=== PATIENT | male | born 1955 | race Caucasian/White ===

== ENCOUNTER 2021-02-27 16:14 | Inpatient (IN) ==
[2021-02-27 18:37] LABS: Basophils # (auto) 0.02 K/uL (0-0.2); Basophils % (auto) 0.3 %; Eosinophils # (auto) 0.15 K/uL (0-0.5); Eosinophils % (auto) 2.1 %; Hematocrit (blood only) 26.7 % (42-52); Hemoglobin 8.4 g/dL (14.0-18.0); Immature Granulocytes # (auto) 0.01 K/uL (0.00-0.02); Immature Granulocytes % (auto) 0.1 %; Lymphocytes # (auto) 1.72 K/uL (1.2-3.4); Lymphocytes % (auto) 24.2 %; Mean Corpuscular Hgb Conc 31.5 g/dL (32-36); Mean Platelet Volume 9.5 fL (7.4-10.4); Monocytes # (auto) 0.87 K/uL (0.11-0.59); Monocytes % (auto) 12.3 %; Neutrophils # (auto) 4.33 K/uL (1.4-6.5); Platelet Count 183 K/uL (130-400); RDW Coefficient of Variation 15.2 % (11.5-14.5); RDW Standard Deviation 48.7 fL (36.4-46.3)
[2021-02-27 18:54] LABS: Alanine Aminotransferase 28 U/L (12-78); Albumin Level 3.8 gm/dl (3.4-5.0); Aspartate Aminotransferase 12 U/L (15-37); BUN Creatinine Ratio 18.8 (10-20); Blood Urea Nitrogen 52 mg/dl (7-18); Calcium 8.7 mg/dl (8.5-10.1); Carbon Dioxide 28 mmol/L (21-32); Chloride 107 mmol/L (98-107); Est GFR (Non-African American) 23.3; Glucose 166 mg/dl (70-99); Potassium 4.4 mmol/L (3.5-5.1); Sodium 139 mmol/L (136-145)
[2021-02-27 18:57] LABS: Albumin Globulin Ratio 1.1 (0.9-2); Alkaline Phosphatase 61 U/L (45-117); Bilirubin,Total 0.2 mg/dl (0.2-1); Globulin 3.4 gm/dl (2.5-4.0); Total Protein 7.2 gm/dl (6.4-8.2)
[2021-02-27 18:58] LABS: Partial Thromboplastin Ratio 2.7; Prothrombin Time > 90.0 Seconds (9.0-12.0)
[2021-02-27 19:04] LABS: INR > 10.7 (0.9-1.1); Partial Thromboplastin Time 71.9 Seconds (21.0-31.0)
[2021-02-27] MEDS ORDERED: PHYTONADIONE 5 MG in SODIUM CHLORIDE 0.9% 50 ML IV ONE ×2 (19:09→21:28)
--- NOTE | 2021-02-27 19:45 | Emergency Department Note ---
Impression & Plan Supratherapeutic INR ED Provider Note INFORMANT: Patient ED PROVIDER(S): Yovani Jain MD CHIEF COMPLAINT: Abnormal labs PLAN: Disposition: Admitted Condition: Good Outpatient prescription management: none Referral: None MEDICAL DECISION MAKING: Patient presented because of the high INR. His blood work was rechecked. He is found to be moderately anemic as well as having a supratherapeutic INR. He was given a dose of IV vitamin K. Rectal examination was performed even though the patient did not have any significant history of GI bleeding by his own account. He was very heme positive although there was no gross blood. I suspect this was the reason he is very anemic. He is not at the threshold for transfusion at this point time although he needs to be admitted because of his supratherapeutic INR and obvious GI bleed. Consultation was made with Dr. Underwood of the [facility] hospitalist service. Patient was evaluated in the ER admitted for further management. Triage Nursing notes reviewed and agree them. Vital Signs: reviewed and remarkable for no significant abnormalities Differential diagnosis: Coagulopathy, infection, dehydration, metabolic abnormality, electrolyte disturbance, anemia, as well as other pathologies. Diagnostics interpreted by me: ECG: none Cardiac Monitoring: Cardiac monitoring ordered by me: The patient was placed on continuous cardiac monitoring and observed. It revealed a normal sinus rhythm at 72 beats per minute without ectopy or evidence of dysrhythmia. Imaging studies: [facility] HPI: The patient is a 65 year old male who presents to the Emergency Room with complaints of abnormal labs. This started today and is from his INR being 8. The patient is on Coumadin for A. fib. He had an INR check done at the [facility] and his value was noted to be 8. He was sent to the ER for further evaluation. The patient also notes the following associated symptoms, none. The patient has been given no new medication for relieving factors. Current pain is rated as 0/10. Pt denies LOC, headache, fevers, chills, diaphoresis, visual changes, neck pain, chest pain, breathing difficulties, nausea, vomiting, abdominal pain, back pain, melena, hematochezia, urinary symptoms, numbness, weakness, lymphadenopathy, rash, active bleeding or bruising, or other complaints. ROS: See above HPI for pertinent positives & negatives. A total of 10 systems reviewed and were otherwise negative. PAST MEDICAL HISTORY:See Below , A. fib, anticoagulated PAST SURGICAL HISTORY:See Below, FAMILY HISTORY:See Below SOCIAL HISTORY:See Below, incarcerated HOME MEDICATIONS:See Below ALLERGIES:See Below VITALS:See Below PHYSICAL EXAMINATION: GENERAL: Awake, alert, well-appearing, in no distress HENT: Normocephalic, atraumatic. Oropharynx unremarkable. EYES: Mildly pale conjunctiva. Sclera non-icteric. NECK: Inspection normal. Non-tender. Supple. No nuchal rigidity. FROM. No masses. RESPIRATORY: Clear to auscultation. No wheezes. No rales. Normal respiratory effort. CARDIAC: Normal rate. Normal rhythm. No murmurs. No rubs. Extremities warm and well perfused. Pulses equal. No JVD. GI: Soft, non-distended. No tenderness to palpation. No rebound or guarding. No masses. RECTAL: No gross blood. Strongly heme positive. MUSCULOSKELETAL: Atraumatic. Chest examination reveals no tenderness. The back is symmetrical on inspection without obvious abnormality. There is no CVA tenderness to palpation. No joint edema. LOWER EXTREMITIES: Calves are equal size bilaterally and non-tender. No edema. No discoloration. NEURO: Normal sensorium. No sensory or motor deficits noted. SKIN: No rash or jaundice noted. Yovani Jain MD Past Med/Surg History Medical History (Updated 02/27/21 @ 19:43 by Yovani Jain MD) Cellulitis Diabetes Diabetes mellitus type 2 in obese Endocarditis Gangrene HTN (hypertension) Hyperlipidemia Paroxysmal A-fib Sepsis Umbilical hernia Surgical History History of Diann's gangrene With debridement x2 in 2019 at [facility] Family History Other Family history non-contributory Social History Smoking Status: Former smoker Preferred Language: Sinhala Communication Ability: Effective Current Living Situation: Other [facility] Sit[facility] Comment: [facility] current occupation: Incarcerated Feels Safe at Home: Yes Allergies Allergies Allergy/AdvReac Type Severity Reaction Status Date / Time sodium chloride Allergy Unknown Verified 02/27/21 18:34 [From [place] Nasal] Home Meds Home Medications Medication Instructions Recorded Confirmed hydrochlorothiazide 25 mg PO DAILY 08/13/20 02/27/21 insulin NPH and regular human 40 unit SUBCUT QPM 08/13/20 02/27/21 [Novolin 70/30 U-100 Insulin] insulin NPH and regular human 45 unit SUBCUT QAM 08/13/20 02/27/21 [Novolin 70/30 U-100 Insulin] rosuvastatin 40 mg PO DAILY 08/13/20 02/27/21 amiodarone 200 mg PO BID 02/27/21 02/27/21 aspirin [Aspirin Low Dose] 81 mg PO DAILY 02/27/21 02/27/21 losartan 25 mg PO DAILY 02/27/21 02/27/21 metoprolol tartrate 25 mg PO BID 02/27/21 02/27/21 warfarin 6 mg PO DAILY 02/27/21 02/27/21 Results & Data (ED) Vital Signs Vital Signs - 24 hr 02/27/21 16:29 02/27/21 19:27 02/27/21 19:52 Temperature 36.9 C 36.8 C Temperature Source Temporal Artery Scan Oral Pulse Rate 75 Pulse Rate [Finger] 63 Respiratory Rate 16 16 Respiratory Effort / Characteristics Non-Labored Respiratory Depth Normal Normal Respiratory Pattern Regular Blood Pressure 133/69 Blood Pressure [Right Arm] 134/89 Blood Pressure Mean 90 Blood Pressure Mean [Right Arm] 104 Blood Pressure Position Sitting Pulse Oximetry 96 100 Oxygen Delivery Method Room Air Room Air Room Air Sepsis Recent Fever Within 48 Hours No Sepsis New/Unexplained Change in Mental Status No Sepsis Action Taken by Nursing No Action Required 02/27/21 20:12 02/27/21 20:27 Temperature Temperature Source Pulse Rate Pulse Rate [Finger] 70 72 Respiratory Rate 20 20 Respiratory Effort / Characteristics Non-Labored Spontaneous Non-Labored Spontaneous Respiratory Depth Normal Normal Respiratory Pattern Regular Regular Blood Pressure Blood Pressure [Right Arm] 140/95 172/91 H Blood Pressure Mean Blood Pressure Mean [Right Arm] 110 118 Blood Pressure Position Pulse Oximetry 98 99 Oxygen Delivery Method Room Air Room Air Sepsis Recent Fever Within 48 Hours Sepsis New/Unexplained Change in Mental Status Sepsis Action Taken by Nursing Laboratory Data Result diagrams: 02/27/21 18:20 02/27/21 18:20 Lab Results 02/27/21 02/27/21 02/27/21 Range/Units 18:20 18:20 18:20 WBC 7.10 (4.8-10.8) K/uL RBC 3.00 L (4.7-6.1) M/uL Hgb 8.4 L (14.0-18.0) g/dL Hct 26.7 L (42-52) % MCV 89.0 (80-100) fL MCH 28.0 (25-34) pg MCHC 31.5 L (32-36) g/dL RDW Std Deviation 48.7 H (36.4-46.3) fL RDW Coeff of Sharad 15.2 H (11.5-14.5) % Plt Count 183 (130-400) K/uL MPV 9.5 (7.4-10.4) fL Immature Gran % (Auto) 0.1 % Neut % (Auto) 61.0 % Lymph % (Auto) 24.2 % [place] % (Auto) 12.3 % Eos % (Auto) 2.1 % Baso % (Auto) 0.3 % Neut # (Auto) 4.33 (1.4-6.5) K/uL Lymph # (Auto) 1.72 (1.2-3.4) K/uL [place] # (Auto) 0.87 H (0.11-0.59) K/uL Eos # (Auto) 0.15 (0-0.5) K/uL Baso # (Auto) 0.02 (0-0.2) K/uL Immature Gran # (Auto) 0.01 (0.00-0.02) K/uL PT > 90.0 H (9.0-12.0) Seconds INR > 10.7 H* (0.9-1.1) APTT 71.9 H* (21.0-31.0) Seconds PTT Ratio 2.7 Sodium 139 (136-145) mmol/L Potassium 4.4 (3.5-5.1) mmol/L Chloride 107 (98-107) mmol/L Carbon Dioxide 28 (21-32) mmol/L Anion Gap 4.0 (3-11) BUN 52 H (7-18) mg/dl Creatinine 2.77 H (0.6-1.4) mg/dl Est Cr Clr Drug Dosing Not Reportable Est GFR ( Amer) 27.0 Est GFR (Non-Af Amer) 23.3 BUN/Creatinine Ratio 18.8 (10-20) Glucose 166 H (70-99) mg/dl Calcium 8.7 (8.5-10.1) mg/dl Total Bilirubin 0.2 (0.2-1) mg/dl AST 12 L (15-37) U/L ALT 28 (12-78) U/L Alkaline Phosphatase 61 (45-117) U/L Total Protein 7.2 (6.4-8.2) gm/dl Albumin 3.8 (3.4-5.0) gm/dl Globulin 3.4 (2.5-4.0) gm/dl Albumin/Globulin Ratio 1.1 (0.9-2) Administered Medications Discontinued Medications Phytonadione 5 mg/ Sodium (Chloride) 50.5 mls @ 101 mls/hr IV ONE ONE Stop: 02/27/21 19:38 Last Infusion: 02/27/21 20:27 Dose: 0 mls/hr Documented by: [id number] Admin: 02/27/21 19:52 Dose: 101 mls/hr Documented by: [id number] Discharge Plan Visit Data Chief Complaint: Illness Stated Complaint: BLOOD TOO THIN ED Provider: Yovani Jain Discharge Problem: Supratherapeutic INR Forms Stand Alone Forms: My [facility] Prescriptions Prescriptions: No Action Novolin 70/30 U-100 Insulin 100 unit/mL (70-30) Suspension 45 unit SUBCUT QAM RF: 0 hydrochlorothiazide 25 mg Tablet 25 mg PO DAILY RF: 0 rosuvastatin 40 mg Tablet 40 mg PO DAILY RF: 0 Novolin 70/30 U-100 Insulin 100 unit/mL (70-30) Suspension 40 unit SUBCUT QPM RF: 0 amiodarone 200 mg Tablet 200 mg PO BID RF: 0 losartan 25 mg Tablet 25 mg PO DAILY RF: 0 metoprolol tartrate 25 mg Tablet 25 mg PO BID RF: 0 aspirin [Aspirin Low Dose] 81 mg Tablet,Delayed Release (Dr/Ec) 81 mg PO DAILY RF: 0 warfarin 6 mg Tablet 6 mg PO DAILY RF: 0
[2021-02-27 21:51] LABS: Base Excess VBG 0.7 mEq/L; HCO3 VBG 26 mmol/L; Oxygen Saturation VBG < 60.0 %; PCO2 VBG 49 mmHg (38-50); PO2 VBG 32 mmHg; pH VBG 7.35 (7.36-7.41)
--- NOTE | 2021-02-27 21:52 | History & Physical Report ---
Date of Service February 27, 2021 Assessment & Plan (1) Supratherapeutic INR: Patient with supratherapeutic INR at >10 with [id number] bleeding. - Given an additional 5mg Vitamin K for a total of 10mg IV- re-dose as needed - If patient is actively bleeding will give Kcentra - Hold Coumadin and Amiodarone- This is maybe causing his elevated levels - Recheck PT/PTT/INR in 6 hours - CBC q3-4 hours (2) GI bleed: Unspecified- no gross bleeding and not in acute distress or evidence of hypoperfusion/shock - Type and screened for 2 units PRBC - CT abdomen and pelvis noncontrast- evaluate for occult bleeding - Transfuse for acute bleeding, symptomatic, or evidence of shock - BUN is at baseline (52) from 2019 (3) Anemia: Currently HGB 8 normocytic - This does not appear to be acute pathology secondary to patient being asymptomatic, no active bleeding noted, and very stable hemodynamic profile (although on BB therapy) - Will hold BB and antihypertensives at this time - Transfuse as above - CT head abdomen and pelvis (4) Diabetes mellitus type 2 in obese: On insulin therapy - Transition to Lantus and Sliding scale insulin - NPO tonight so Lantus at 20- re-adjust when diet is added (5) HTN (hypertension): Continue to hold hypertensive agents until bleeding source is identified and INR stabilized - Will treat if > 180 - Patient with evidence of failure with edema and hepatic congestion- - Diurese when able as well as ECHO (6) Obesity: Morbidly obese - No acute needs (7) Hyperlipidemia: Lipids in morning continue statin (8) Hepatic cyst: Incidental on abdominal CT scan- evaluate with liver ultrasound in the morning (9) Paroxysmal A-fib: Patient rate controlled. 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 Patient does not know what Coumadin or Warfarin was, "what's that? I don't know". Patient had his INR checked at the long term today and was noted to be elevated and was re-checked ~8. It was re-checked in the EMD with INR of 10.7, PT>90, APTT 71.9. The patient is pale and his Hgb is 8.4, he is not a great historian and gets confused with questioning. He denies any change in his abdominal girth, nausea, vomiting, blood in the toilet or stools. Does report that stools were "dark black but then they stopped being like that", approximately a "week or so ago". Patient had a heme positive occult blood test in the EMD. In the ER the patient was type and screened for 2 units PRBC and received 5mg Vitamin K IV. Hospitalist team was notified for admission. Allergies Allergy/AdvReac Type Severity Reaction Status Date / Time sodium chloride Allergy Unknown Verified 02/27/21 18:34 [From [place] Nasal] Home Medications Medication Instructions Recorded Confirmed Type hydrochlorothiazide 25 mg PO DAILY 08/13/20 02/27/21 History insulin NPH and regular human 40 unit SUBCUT QPM 08/13/20 02/27/21 History [Novolin 70/30 U-100 Insulin] insulin NPH and regular human 45 unit SUBCUT QAM 08/13/20 02/27/21 History [Novolin 70/30 U-100 Insulin] rosuvastatin 40 mg PO DAILY 08/13/20 02/27/21 History amiodarone 200 mg PO BID 02/27/21 02/27/21 History aspirin [Aspirin Low Dose] 81 mg PO DAILY 02/27/21 02/27/21 History losartan 25 mg PO DAILY 02/27/21 02/27/21 History metoprolol tartrate 25 mg PO BID 02/27/21 02/27/21 History warfarin 6 mg PO DAILY 02/27/21 02/27/21 History Past Med/Surg History Medical History (Updated 02/27/21 @ 23:03 by OLIVERIO Corley) Cellulitis Diabetes Diabetes mellitus type 2 in obese Endocarditis Gangrene HTN (hypertension) Hyperlipidemia Paroxysmal A-fib Sepsis Umbilical hernia Surgical History History of Diann's gangrene With debridement x2 in 2019 at [facility] Family History Other Family history non-contributory Social History Smoking Status: Unknown if ever smoked Hx Alcohol Use: No Hx Substance Use: No Preferred Language: Romanian Communication Ability: Effective 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 Beliefs That Will Affect Care: None Current Living Situation: Other Current Living Situation Comment: [facility] current occupation: Incarcerated Other Information That Helps Us Care for You: No Feels Safe at Home: Yes Assistive Devices: None Review of Systems Review of Systems: REVIEW OF SYSTEMS: Constitutional: No fever, sweats or chills Eyes: No diplopia, no worsening or blurred vision ENT: normal hearing, no trouble swallowing Respiratory: No cough, sputum, dyspnea at rest or on exertion Cardiovascular: No chest pain, tightness or palpitations Abdomen: No pain, nausea, vomiting, diarrhea or constipation Musculoskeletal: No joint pain, calf pain, swelling Neurologic: No weakness, numbness/tingling, or balance problems Psychiatric: No anxiety or depression Skin: No rash or itch Physical Exam Physical Exam: PHYSICAL EXAM: General: awake, alert, no apparent distress Head: Normocephalic, atraumatic ENT: PERRLA, EOMI, no pharyngeal exudate, mucous membranes moist, conjunctiva pale, no jaundice Neuro: AAO x 3, speech clear and mostly appropriate, strength intact bilaterally 5/5, sensation intact and equal all extremities and dermatomes, no pronator drift Chest: equal rise and fall of the chest, no accessory muscle use, no heaves or thrills, Clear to auscultation, on room air, Cardiac: Regular rate and rhythm, telemetry reviewed- NSR, skin warm dry, cap refill <3 seconds, peripheral pulses +2 no JVD, no murmur, (+) 2 edema to lower extremities GI: NABS x 4 quadrants, soft, nontender to palpation, no rebound, guarding or tenderness, obese rotund abdomen : Spontaneously voiding, no pain, no CVA tenderness, Extremities: Normal inspection, no peripheral edema or erythema, calfs nontender to palpation Psych: Normal mood and affect Skin: no rash or erythema, scar to left inner thigh Results & Data Results & Data ([facility]) Vital Signs (Past 12 Hours) Vital Signs Temp Pulse Pulse Resp BP BP Pulse Ox 02/27/21 20:27 72 20 172/91 H 99 02/27/21 20:12 70 20 140/95 98 02/27/21 19:52 36.8 C 63 16 134/89 100 02/27/21 16:29 36.9 C 75 16 133/69 96 Laboratory Results Abnormal lab results 02/27/21 02/27/21 02/27/21 Range/Units 18:20 18:20 18:20 RBC 3.00 L (4.7-6.1) M/uL Hgb 8.4 L (14.0-18.0) g/dL Hct 26.7 L (42-52) % MCHC 31.5 L (32-36) g/dL RDW Std Deviation 48.7 H (36.4-46.3) fL RDW Coeff of Sharad 15.2 H (11.5-14.5) % [place] # (Auto) 0.87 H (0.11-0.59) K/uL PT > 90.0 H (9.0-12.0) Seconds INR > 10.7 H* (0.9-1.1) APTT 71.9 H* (21.0-31.0) Seconds VBG pH (7.36-7.41) BUN 52 H (7-18) mg/dl Creatinine 2.77 H (0.6-1.4) mg/dl Glucose 166 H (70-99) mg/dl AST 12 L (15-37) U/L 02/27/21 Range/Units 21:40 RBC (4.7-6.1) M/uL Hgb (14.0-18.0) g/dL Hct (42-52) % MCHC (32-36) g/dL RDW Std Deviation (36.4-46.3) fL RDW Coeff of Sharad (11.5-14.5) % [place] # (Auto) (0.11-0.59) K/uL PT (9.0-12.0) Seconds INR (0.9-1.1) APTT (21.0-31.0) Seconds VBG pH 7.35 L (7.36-7.41) BUN (7-18) mg/dl Creatinine (0.6-1.4) mg/dl Glucose (70-99) mg/dl AST (15-37) U/L Diagnostic Findings CT head and abdomen and pelvis are pending Medications Administered Discontinued Medications Phytonadione 5 mg/ Sodium (Chloride) 50.5 mls @ 101 mls/hr IV ONE ONE Stop: 02/27/21 19:38 Last Infusion: 02/27/21 20:27 Dose: 0 mls/hr Documented by: [id number] Admin: 02/27/21 19:52 Dose: 101 mls/hr Documented by: [id number] ECG Additional Comments: Pending Supervising Physician Co-Signing Physician Notes Patient seen and examined, chart reviewed, case discussed with OLIVERIO Mack and I agree with his assessment and plan as documented above. Briefly, patient is a 65yo incarcerated male with history of PAF on Coumadin and Amiodarone presenting with supratherapeutic INR > 10, anemia. On exam he is afebrile, HD stable, NAD AA&O, answers most questions appropriately Skin - scattered bruising on abdominal wall. No appreciable hematoma HEENT - NC/AT, PERRL, MMM, Neck supple Heart - +S1/S2, regular, no m/r/g Lungs - CTA Abd - Obese, soft, NT/ND Ext - +Edema 2+ to knees Skin - +bruising on abdominal wall, small petechiae present on bilateral ankles Labs and images reviewed. INR > 10.7, Hgb=8.4, Hct=26.7, normochromic/normocytic, Aiz=851 CT Head with involutional and chronic small vessel ischemic changes. No ICH CT Abdomen and pelvis with hepatic cysts. 2cm low-density right hepatic lobe, ?cyst vs solid mass. Assessment/Plan: 65yo C male with history of AF on Coumadin anticoagulation presenting with supratherapeutic INR >10.7, anemia with Heme + stools per ER exam. Patient afebrile, HD stable, no acute distress. -Vitamin K 5mg IV x 2 doses administered -Hold Coumadin -Monitor INR, CBC -GI consultation appreciated -AFP and RUQUS in AM to further workup liver cyst vs mass -Remainder of plan as above PG Care Time/CCT Total # of Minutes Spent Total Time Spent with Patient: Total time spent is greater than 50% in coordination of care (as documented) at patient's floor/unit and/or counseling patient: Coding Level of Care Code 75133 Initial Inpt Care Lvl 3 Diagnoses Supratherapeutic INR R79.1 GI bleed K92.2 GI bleed type/associated pathology: unspecified gastrointestinal hemorrhage type Anemia D64.89 Anemia type: other cause Other causes of anemia: other cause, not classified Diabetes mellitus type 2 in obese E11.69; E66.9 HTN (hypertension) I10 Hypertension type: essential hypertension Obesity E66.01; Z68.41 Body mass index: BMI 40.0-44.9 Obesity classification: adult class 3 (BMI >= 40) Obesity type: unspecified obesity type Serious obesity comorbidity presence: without serious comorbidity Hyperlipidemia E78.5 Hyperlipidemia type: unspecified Hepatic cyst K76.89 Paroxysmal A-fib I48.0 (1) GI bleed GI bleed type/associated pathology: unspecified gastrointestinal hemorrhage type Qualified Code(s): K92.2 - Gastrointestinal hemorrhage, unspecified (2) Anemia Anemia type: other cause Other causes of anemia: other cause, not classified Qualified Code(s): D64.89 - Other specified anemias (3) Hyperlipidemia Hyperlipidemia type: unspecified Qualified Code(s): E78.5 - Hyperlipidemia, unspecified (4) HTN (hypertension) Hypertension type: essential hypertension Qualified Code(s): I10 - Essential (primary) hypertension (5) Obesity Body mass index: BMI 40.0-44.9 Obesity classification: adult class 3 (BMI >= 40) Obesity type: unspecified obesity type Serious obesity comorbidity presence: without serious comorbidity Qualified Code(s): E66.01 - Morbid (severe) obesity due to excess calories; Z68.41 - Body mass index [BMI]40.0- 44.9, adult
[2021-02-27 22:25] LABS: Influenza A virus by PCR Negative (Neg); Influenza B virus by PCR Negative (Neg); RSV by PCR Negative (Neg); SARS CoV2 RNA(COVID-19) InHosp NEGATIVE (Negative)
[2021-02-27 22:46] LABS: Amphetamines+Metham, Urine Neg (Neg); Barbiturates, Urine Neg (Neg); Benzodiazepine, Urine Neg (Neg); Cocaine, Urine Neg (Neg); MDMA (Ecstacy), Urine Neg (Neg); Methadone, Urine Neg (Neg); Opiate, Urine Neg (Neg); Phencyclidine, Urine Neg (Neg)
[2021-02-28] MEDS ORDERED: DEXTROSE 50% 50 ML SYRINGE IV PRN (00:37)
[2021-02-28] MEDS ORDERED: ONDANSETRON INJ 2 MG/ML 2 ML VIAL IV PRN (00:37)
[2021-02-28] MEDS ORDERED: GLUCOSE 10 TABS/TUBE PO PRN (00:37)
[2021-02-28] MEDS ORDERED: CARBOHYDRATES FOR HYPOGLYCEMIA PO PRN (00:37)
[2021-02-28] MEDS ORDERED: GLUCAGON FOR INJ 1 MG VIAL SQ PRN (00:37)
[2021-02-28] MEDS ORDERED: GLUCOSE 40% GEL 15 GM TUBE PO PRN (00:37)
[2021-02-28] MEDS ORDERED: ACETAMINOPHEN 325 MG TAB PO PRN (00:37)
[2021-02-28] MEDS: INSULIN ASPART 100 UNITS/ML 3 ML PEN SC SCH ×5 (01:32→20:32)
[2021-02-28 03:31] LABS: Basophils # (auto) 0.02 K/uL (0-0.2); Basophils % (auto) 0.3 %; Eosinophils # (auto) 0.21 K/uL (0-0.5); Hematocrit (blood only) 23.9 % (42-52); Hemoglobin 7.6 g/dL (14.0-18.0); Immature Granulocytes # (auto) 0.01 K/uL (0.00-0.02); Immature Granulocytes % (auto) 0.1 %; Lymphocytes # (auto) 2.26 K/uL (1.2-3.4); Lymphocytes % (auto) 32.6 %; Mean Corpuscular Hemoglobin 28.1 pg (25-34); Mean Corpuscular Hgb Conc 31.8 g/dL (32-36); Mean Corpuscular Volume 88.5 fL (80-100); Mean Platelet Volume 9.2 fL (7.4-10.4); Monocytes # (auto) 0.81 K/uL (0.11-0.59); Monocytes % (auto) 11.7 %; Neutrophils # (auto) 3.62 K/uL (1.4-6.5); Neutrophils % (auto) 52.3 %; Platelet Count 158 K/uL (130-400); RDW Coefficient of Variation 15.2 % (11.5-14.5); RDW Standard Deviation 49.1 fL (36.4-46.3); White Blood Count 6.93 K/uL (4.8-10.8)
[2021-02-28 03:42] LABS: Partial Thromboplastin Ratio 1.4; Partial Thromboplastin Time 35.6 Seconds (21.0-31.0)
[2021-02-28 03:51] LABS: BUN Creatinine Ratio 19.2 (10-20); Blood Urea Nitrogen 49 mg/dl (7-18); Calcium 7.8 mg/dl (8.5-10.1); Carbon Dioxide 28 mmol/L (21-32); Chloride 110 mmol/L (98-107); Est GFR (African American) 30.1; Glucose 121 mg/dl (70-99); Magnesium 2.1 mg/dl (1.8-2.4); Sodium 143 mmol/L (136-145)
[2021-02-28 03:53] LABS: RBC Morphology Unremarkable
[2021-02-28 03:54] LABS: Chol HDL Ratio 2; Cholesterol 102 mg/dl (0-200); HDL Cholesterol 47 mg/dl; LDL Cholesterol Calculated 23 mg/dl; Triglycerides 159 mg/dl (0-150); VLDL Cholesterol 32 mg/dl
--- NOTE | 2021-02-28 06:30 | CT Scan Report ---
CT head/brain wo con CLINICAL HISTORY: 65 years-old Male with INR > 10, confusion. Acutely altered mental status TECHNIQUE: Multiple axial CT images of the head were obtained without contrast. A dose lowering tech nique was utilized adhering to the principles of ALARA. CT DOSE: 537.48 mGy.cm COMPARISON: None. FINDINGS: No acute intracranial hemorrhage, midline shift, intracranial mass, hydrocephalus, territorial ischem ia or abnormal extra-axial collection. Involutional changes. Cerebral vascular calcifications. The calvarium is intact. The paranasal sinuses, mastoid air cells, and middle ear cavities are clear . IMPRESSION: No acute intracranial abnormality. ACT 112: Negative or not required by law. The above report was generated using voice recognition software. It may contain grammatical, syntax o r spelling errors. Electronically signed by: Lucas Cooper M.D. 02/28/2021 6:29 AM
[2021-02-28 07:37] LABS: INR 2.5 (0.9-1.1); Prothrombin Time 23.7 Seconds (9.0-12.0)
--- NOTE | 2021-02-28 07:58 | Hospitalist Progress Note ---
Date of Service February 28, 2021 Assessment & Plan (1) Supratherapeutic INR: Patient with supratherapeutic INR at >10 with [id number] bleeding. - Given vitamin k for a total of 10mg IV - Hold Coumadin and Amiodarone- This is maybe causing his elevated levels inr 2.5 but no further decrease in hgb (2) GI bleed: Unspecified- no gross bleeding and not in acute distress or evidence of hypoperfusion/shock - Type and screened for 2 units PRBC - CT abdomen and pelvis - Transfuse for acute bleeding, symptomatic, or evidence of shock (3) Anemia: Currently HGB 7.6, transfused now 8.9 - - Will hold BB and antihypertensives at this time, have metoprolol available for rate control of afib - CT head negative, abdomen and pelvis and mri showing some mass in liver some with cyst appearance some wihthout not given contrast due to renal function although radiology feels maybe should have, this likely not with immediate impact on supratherapeutic INR will need further work up (4) Diabetes mellitus type 2 in obese: On insulin therapy - Transition to Lantus and Sliding scale insulin (5) HTN (hypertension): Continue to hold hypertensive agents until bleeding source is identified and INR stabilized - Will treat if > 180 - (6) Obesity: Morbidly obese - No acute needs (7) Hyperlipidemia: Lipids tc 102 triglycerides 159 (8) Hepatic cyst: Incidental on abdominal CT scan- evaluate with liver ultrasound in the morning (9) Paroxysmal A-fib: Patient rate controlled. On Coumadin anticoagulation with supratherapeutic INR as above -Hold Coumadin -Monitor INR -Hold metoprolol -Contine to monitor (10) CKD stage 4 due to type 2 diabetes mellitus: Admission and Anticipated Discharge Date Admission Date: February 27, 2021 Subjective Patient was seen in the emergency department he is having no discomfort. He had no melena or dark bowel movements. He has no focus abdominal pain. Patient's INR is down to 2.5 but his hemoglobin has been stable. Review of Systems Review of Systems: Mild distress and fatigue no headache, blurry or double vision no speech or swallowing issues no chest pain, pressure or palpitations no shortness of breath, cough or wheezes no abdominal pain, nausea or vomiting, diarrhea or constipation no dysuria, hematuria or frequency no focal joint pain or swelling no back pain, CVA tenderness or radicular pain no bruising, bleeding or rashes no focal signs of weakness or numbness or altered sensation no complaints of anxiety or depression.. Physical Exam Physical Exam: The patient appeared well nourished and normally developed. he is morbidly obese with bmi 40 Vital signs as documented. Head exam is normocephalic atraumatic no scleral icterus Neck is without JVD, thyromegaly, or carotid bruits. Lungs are clear to auscultation, no focal loss of breath sounds Cardiac exam, Rhythm is regular.. No murmurs, rubs or gallops. Abdominal exam reveals normal bowel sounds, soft non tender, no masses Extremities are nonedematous and both pedal pulses are present Neurologic exam is alert and oriented, no focal loss of strength or sensation Skin is without bruises or rashes Psychologically is without concerns for anxiety or depression Results & Data Results & Data ([facility]) Vital Signs (Past 12 Hours) Vital Signs Temp Pulse Pulse Resp BP BP Pulse Ox 02/28/21 04:00 90 16 135/68 96 02/28/21 02:00 59 L 16 134/70 97 02/28/21 01:06 58 L 14 155/73 H 98 02/28/21 00:37 77 16 118/64 99 02/27/21 23:02 67 20 141/69 H 98 02/27/21 22:01 99 02/27/21 22:00 140/72 96 02/27/21 21:58 100 02/27/21 21:40 70 20 98 02/27/21 21:31 73 18 95 02/27/21 21:30 66 19 129/68 97 02/27/21 21:20 69 19 99 02/27/21 21:10 78 17 02/27/21 21:01 68 17 100 02/27/21 21:00 69 16 162/75 H 100 02/27/21 20:50 66 19 100 02/27/21 20:40 63 16 100 02/27/21 20:32 63 16 96 02/27/21 20:31 64 20 172/91 H 99 02/27/21 20:30 67 14 180/102 H 100 02/27/21 20:27 72 20 172/91 H 99 02/27/21 20:20 69 22 02/27/21 20:15 71 18 140/95 97 02/27/21 20:14 70 18 167/84 H 100 02/27/21 20:12 70 20 140/95 98 02/27/21 20:10 65 16 99 02/27/21 20:01 64 19 100 02/27/21 20:00 67 16 130/86 100 02/27/21 19:57 64 16 134/89 100 02/27/21 19:52 98.2 F 63 16 134/89 100 02/27/21 19:50 62 17 99 PG Care Time/CCT Total # of Minutes Spent Total Time Spent with Patient: Total time spent is greater than 50% in coordination of care (as documented) at patient's floor/unit and/or counseling patient: Coding Level of Care Code 05053 Subseq Hosp Care Lvl 3 Diagnoses Supratherapeutic INR R79.1 GI bleed K92.2 GI bleed type/associated pathology: unspecified gastrointestinal hemorrhage type Anemia D64.89 Anemia type: other cause Other causes of anemia: other cause, not classified Diabetes mellitus type 2 in obese E11.69; E66.9 HTN (hypertension) I10 Hypertension type: essential hypertension Obesity E66.01; Z68.41 Body mass index: BMI 40.0-44.9 Obesity classification: adult class 3 (BMI >= 40) Obesity type: unspecified obesity type Serious obesity comorbidity presence: without serious comorbidity Hyperlipidemia E78.5 Hyperlipidemia type: unspecified Hepatic cyst K76.89 Paroxysmal A-fib I48.0 CKD stage 4 due to type 2 diabetes mellitus E11.22; N18.4 (1) GI bleed GI bleed type/associated pathology: unspecified gastrointestinal hemorrhage type Qualified Code(s): K92.2 - Gastrointestinal hemorrhage, unspecified (2) Anemia Anemia type: other cause Other causes of anemia: other cause, not classified Qualified Code(s): D64.89 - Other specified anemias (3) Hyperlipidemia Hyperlipidemia type: unspecified Qualified Code(s): E78.5 - Hyperlipidemia, unspecified (4) HTN (hypertension) Hypertension type: essential hypertension Qualified Code(s): I10 - Essential (primary) hypertension (5) Obesity Body mass index: BMI 40.0-44.9 Obesity classification: adult class 3 (BMI >= 40) Obesity type: unspecified obesity type Serious obesity comorbidity presence: without serious comorbidity Qualified Code(s): E66.01 - Morbid (severe) obesity due to excess calories; Z68.41 - Body mass index [BMI]40.0- 44.9, adult
[2021-02-28] MEDS ORDERED: SODIUM CHLORIDE 0.9% 250 ML IV PRN (08:00)
--- NOTE | 2021-02-28 08:42 | CT Scan Report ---
CT OF THE ABDOMEN AND PELVIS WITHOUT CONTRAST CLINICAL HISTORY: INR >10 HGB 5 evaluate for occult bleed COMPARISON STUDY: CT of the abdomen and pelvis August 13, 2020. TECHNIQUE: Axial images of the abdomen and pelvis were obtained without IV contrast. Images were revi ewed in the axial, sagittal, and coronal planes. Automated exposure control was utilized for the andreia dy. A dose lowering technique was utilized adhering to the principles of ALARA. FINDINGS: Lung bases are unremarkable. No hemoperitoneum or pneumoperitoneum is noted. There is no re troperitoneal hematoma. Evaluation of the abdomen and pelvis is suboptimal on this unenhanced examina tion. Multiple water attenuation hepatic lesions are unchanged from earlier exams. These reflect cyst s and measure up to 5.2 cm. A 2.2 cm intermediate attenuation right hepatic lobe lesion on image 97 o f [address] of August 13, 2020. A 1.6 cm caudate lobe lesion is also new. A 0.7 cm right hepatic dome lesion on image 47 is also likely new. There is no biliary or pancreatic ductal dilatat ion. Gallstones within gallbladder without evidence for acute cholecystitis. There is no evidence for a andres wel obstruction. The appendix is normal. Sensitivity for detection of mucosal lesions is diminished g iven CT technique. No suspicious osseous lesions are identified within the visualized skeletal struct ures. IMPRESSION: 1. Interval development of several hepatic lesions since CT of August 13, 2020. These are indeterm inate and metastatic disease is within the differential. MRI of the liver with and without contrast i s recommended for further evaluation. Findings discussed with Dr. Baker at time of dictation. 2. No acute process within the abdomen or pelvis. No retroperitoneal hematoma. No hemoperitoneum. 3. Cholelithiasis. ACT 112: Negative or not required by law. Electronically signed by: Alek Randall M.D. 02/28/2021 8:41 AM
[2021-02-28] MEDS: PANTOprazole 40 MG in SYRINGE 0 ML IV SCH ×2 (08:56→20:35)
[2021-02-28] MEDS: INSULIN GLARGINE SOLOSTAR 100 UNITS/ML 3 ML PEN SC SCH ×2 (08:56→20:31)
[2021-02-28] MEDS ORDERED: INSULIN HUMAN 70% NPH/30% REGULAR SQ SCH ×4 (09:00→21:00)
--- NOTE | 2021-02-28 09:01 | Ultrasound Report ---
US liver CLINICAL HISTORY: liver cyst/mass COMPARISON STUDY: CT of the abdomen and pelvis February 27, 2021. FINDINGS: This exam is compromised by suboptimal penetration. The pancreatic body is normal. The head and tail are partially obscured. Liver morphology is normal. Multiple hepatic cysts measure up to 6. 1 cm. Note is made of a indeterminate 2 cm hypoechoic right hepatic lobe lesion which corresponds to one of the new lesions shown on CT of February 27, 2021. No color flow is identified within this lesion. There is no biliary ductal dilatation. Small gallstone is noted. There is no evidence for acute ana cystitis. There is no right hydronephrosis. IMPRESSION: 1. 2 cm hypoechoic right hepatic lobe lesion which corresponds to one of the new liver lesions shown on CT of March 09, 2021. These lesions are indeterminate and metastatic disease is within the differe ntial. MRI of the liver with and without contrast is recommended. 2. Cholelithiasis. No evidence for acute cholecystitis. ACT 112: Positive. There are findings on this exam that require communication between the performing entity and the patient following Patient Test Result Information Act ([place] Act 112) guidelines. Electronically signed by: Alek Randall M.D. 02/28/2021 8:59 AM
--- NOTE | 2021-02-28 10:29 | Gastrointestinal Consultation ---
Date of Consultation February 28, 2021 Assessment & Plan (1) Anemia: In the setting of supratherapeutic INR. -Continue to monitor H/H -Protonix 40 mg IV BID -Carafate 1 gm four times daily before meals and at bedtime -Monitor for signs of overt GI bleeding -Will defer endoscopic evaluation at present; Will continue to evaluate and make further recommendations based upon remainder of work-up. 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 Patient was sent to [facility] after an INR was checked and found to be 8. He notes that one month ago, he had an episode of melena but this resolved quickly. He denies any abdominal pain, nausea, vomiting, heartburn, rectal bleeding, or hematemesis. In the ED, he was noted to have anemia. His current H/H is 7.6/23.9 at present. He had a CT scan of the abdomen/pelvis that indicated suspicious liver lesions that have developed since July and are concerning for metastatic disease. He had a positive hemoccult in the ED. He was typed and screened for 2 units PRBCs and received Vitamin K (5 mg). No insight regarding family history. LFTs have been elevated in previous admissions, but are normal at present. He reports a colonoscopy 12 years ago during which time a polyp was removed. Allergies Allergy/AdvReac Type Severity Reaction Status Date / Time sodium chloride Allergy Unknown Verified 02/27/21 18:34 [From Redan Nasal] Home Medications Medication Instructions Recorded Confirmed Type hydrochlorothiazide 25 mg PO DAILY 08/13/20 02/27/21 History insulin NPH and regular human 40 unit SUBCUT QPM 08/13/20 02/27/21 History [Novolin 70/30 U-100 Insulin] insulin NPH and regular human 45 unit SUBCUT QAM 08/13/20 02/27/21 History [Novolin 70/30 U-100 Insulin] rosuvastatin 40 mg PO DAILY 08/13/20 02/27/21 History amiodarone 200 mg PO BID 02/27/21 02/27/21 History aspirin [Aspirin Low Dose] 81 mg PO DAILY 02/27/21 02/27/21 History losartan 25 mg PO DAILY 02/27/21 02/27/21 History metoprolol tartrate 25 mg PO BID 02/27/21 02/27/21 History warfarin 6 mg PO DAILY 02/27/21 02/27/21 History Patient History Medical History (Updated 02/28/21 @ 10:36 by Josseline Reddy PA-C) Cellulitis Diabetes Diabetes mellitus type 2 in obese Endocarditis Gangrene HTN (hypertension) Hyperlipidemia Paroxysmal A-fib Sepsis Umbilical hernia Surgical History History of Diann's gangrene With debridement x2 in 2019 at [facility] Family History Other Family history non-contributory Social History Smoking Status: Unknown if ever smoked Hx Alcohol Use: No Hx Substance Use: No Preferred Language: Ukrainian Communication Ability: Effective Weapons Mechanic Required: No Beliefs That Will Affect Care: None Current Living Situation: Other Current Living Situation Comment: [facility] current occupation: Incarcerated Other Information That Helps Us Care for You: No Feels Safe at Home: Yes Assistive Devices: Glasses and Wheelchair Review of Systems Constitutional: no fatigue Respiratory: no cough and no dyspnea Cardiovascular: no chest pain Gastrointestinal: no abdominal pain, no change in bowel habits, no constipation, no diarrhea/loose stools and no blood in stools Physical Exam Constitutional: well developed Neck: normal visual inspection Respiratory: normal respiratory effort Cardiovascular: Extremities: no edema Gastrointestinal (Abdomen): Inspection/Auscultation: abdomen normal to inspection Musculoskeletal: Head/Neck/Chest: normocephalic Psychiatric: A+Ox3, euthymic affect Results & Data ([facility]) Vital Signs (Past 12 Hours) Vital Signs Temp Pulse Pulse Resp BP BP Pulse Ox 02/28/21 10:24 36.7 C 59 L 16 138/68 98 02/28/21 10:09 36.8 C 60 17 134/68 98 02/28/21 09:52 36.7 C 63 16 127/70 97 02/28/21 04:00 90 16 135/68 96 02/28/21 02:00 59 L 16 134/70 97 02/28/21 01:06 58 L 14 155/73 H 98 02/28/21 00:37 77 16 118/64 99 02/27/21 23:02 67 20 141/69 H 98 PG Care Time/CCT Total # of Minutes Spent Total Time Spent with Patient: Total time spent is greater than 50% in coordination of care (as documented) at patient's floor/unit and/or counseling patient: Coding Level of Care Code 72466 Inpt Consult Level 4 Diagnoses Anemia D64.89 Anemia type: other cause Other causes of anemia: other cause, not classified Liver lesion K76.9 (1) Anemia Anemia type: other cause Other causes of anemia: other cause, not classified Qualified Code(s): D64.89 - Other specified anemias
[2021-02-28] MEDS ORDERED: PANTOprazole 40 MG in SYRINGE 0 ML IV SCH (11:00)
[2021-02-28 14:16] LABS: Basophils # (auto) 0.01 K/uL (0-0.2); Basophils % (auto) 0.1 %; Eosinophils # (auto) 0.14 K/uL (0-0.5); Hematocrit (blood only) 27.5 % (42-52); Hemoglobin 8.9 g/dL (14.0-18.0); Immature Granulocytes # (auto) 0.01 K/uL (0.00-0.02); Immature Granulocytes % (auto) 0.1 %; Lymphocytes # (auto) 1.84 K/uL (1.2-3.4); Lymphocytes % (auto) 26.5 %; Mean Corpuscular Hemoglobin 28.8 pg (25-34); Mean Corpuscular Hgb Conc 32.4 g/dL (32-36); Mean Platelet Volume 10.1 fL (7.4-10.4); Monocytes # (auto) 0.69 K/uL (0.11-0.59); Monocytes % (auto) 9.9 %; Neutrophils # (auto) 4.25 K/uL (1.4-6.5); Neutrophils % (auto) 61.4 %; Platelet Count 175 K/uL (130-400); RDW Coefficient of Variation 15.2 % (11.5-14.5); Red Blood Count 3.09 M/uL (4.7-6.1); White Blood Count 6.94 K/uL (4.8-10.8)
--- NOTE | 2021-02-28 14:21 | Magnetic Resonance Report ---
MR abdomen wo con CLINICAL HISTORY: New hepatic masses. TECHNIQUE: Imaging was performed without IV contrast enhancement. COMPARISON STUDY: CT scan dated 02/27/2021, ultrasound dated 02/28/2021 FINDINGS: The previously described stable hepatic lesions are T2 bright and parallel water signal. Th deedee are consistent with simple cysts. The largest is located within the left lobe centrally measuring 54 mm. The 3 new lesions described on CT scanning are T2 bright, but of lower signal intensity then these cy sts. There is a 2 cm lesion within the right lobe of the liver, a 12 mm lesion within the caudate, an d an 8 mm lesion within the right hepatic dome. These lesions are indeterminate. As was previously re commended, a hepatic protocol MRI scan including contrast is recommended. Despite the slightly dimini shed GFR, the benefit of the study likely outweighs the risk. It should be noted that these lesions d o not demonstrate restricted water diffusion. No renal masses are visualized in this noncontrast study. No pancreatic masses are visualized. No splenic masses are visualized. There is no evidence of abdominal aneurysm. There is no pathologic adenopathy. IMPRESSION: 1. The 3 new hepatic lesions, described on the recent CT scan do not meet criteria of simple cysts on this noncontrast study. The largest measures 2 cm. These lesions are therefore indeterminate. As was previously stated, a dedicated hepatic protocol MRI with and without contrast should be considered. Given the indeterminate nature of these lesions, the benefit of this study likely outweighs the risk despite the mildly diminished GFR 26. ACT 112: Negative or not required by law. Electronically signed by: Steve Krishna M.D. 02/28/2021 2:20 PM
[2021-02-28] MEDS: SUCRALFATE 1 GM/10 ML UDC PO SCH ×3 (15:04→20:32)
[2021-02-28] MEDS ORDERED: METOPROLOL TARTRATE 1 MG/ML VIAL IV PRN (17:09)
[2021-02-28] MEDS: METOPROLOL TARTRATE 25 MG TAB PO SCH (20:31)
[2021-03-01 05:15] LABS: Basophils # (auto) 0.01 K/uL (0-0.2); Basophils % (auto) 0.1 %; Eosinophils # (auto) 0.21 K/uL (0-0.5); Eosinophils % (auto) 3.1 %; Hematocrit (blood only) 27.8 % (42-52); Hemoglobin 8.9 g/dL (14.0-18.0); Immature Granulocytes # (auto) 0.01 K/uL (0.00-0.02); Immature Granulocytes % (auto) 0.1 %; Lymphocytes # (auto) 1.81 K/uL (1.2-3.4); Lymphocytes % (auto) 26.7 %; Mean Corpuscular Hemoglobin 28.2 pg (25-34); Mean Platelet Volume 9.2 fL (7.4-10.4); Monocytes # (auto) 0.91 K/uL (0.11-0.59); Monocytes % (auto) 13.4 %; Neutrophils # (auto) 3.83 K/uL (1.4-6.5); Neutrophils % (auto) 56.6 %; Platelet Count 162 K/uL (130-400); RDW Coefficient of Variation 14.9 % (11.5-14.5); RDW Standard Deviation 47.9 fL (36.4-46.3); Red Blood Count 3.16 M/uL (4.7-6.1); White Blood Count 6.78 K/uL (4.8-10.8)
[2021-03-01 05:27] LABS: INR 1.2 (0.9-1.1); Prothrombin Time 12.2 Seconds (9.0-12.0)
[2021-03-01 05:47] LABS: BUN Creatinine Ratio 18.2 (10-20); Calcium 8.6 mg/dl (8.5-10.1); Creatinine Clr Calc Pharmacy 33.7 ml/min; Est GFR (African American) 30.5; Est GFR (Non-African American) 26.3; Potassium 4.2 mmol/L (3.5-5.1)
[2021-03-01] MEDS: INSULIN ASPART 100 UNITS/ML 3 ML PEN SC SCH ×4 (07:57→21:16)
[2021-03-01] MEDS: AMIODARONE 200 MG TAB PO SCH ×2 (07:57→18:18)
[2021-03-01] MEDS: METOPROLOL TARTRATE 25 MG TAB PO SCH ×2 (07:57→21:18)
[2021-03-01] MEDS: INSULIN GLARGINE SOLOSTAR 100 UNITS/ML 3 ML PEN SC SCH ×2 (07:57→21:15)
[2021-03-01] MEDS: SUCRALFATE 1 GM/10 ML UDC PO SCH ×4 (07:58→21:19)
[2021-03-01] MEDS: PANTOprazole 40 MG in SYRINGE 0 ML IV SCH (07:58)
--- NOTE | 2021-03-01 09:33 | Gastroenterology Progress Note ---
Date of Service March 01, 2021 Assessment & Plan (1) Liver lesion: -Recommend liver biopsy. Discussed logistics with hospitalist. (2) Anemia: Patient is without overt GI bleeding. -Continue to monitor H/H. -Monitor for obvious bleeding. -No obvious colon masses/lesions on abdominal imaging at this time; Defer endoscopic work-up and await results of liver biopsy. Admission and Anticipated Discharge Date Admission Date: February 27, 2021 Supervising Physician Co-Signing Physician Notes Agree with EVE Mirza as above Discussed case with Dr. Montes yesterday and recommended Liver biopsy for further evaluation Subjective Patient is a 65 yo male with anemia & liver lesions. He is not having any GI symptoms. H/H is 8.9/27.8 today. His INR has decreased from >10 to 1.2. He is on PPI therapy & Carafate in case of upper GI bleed. Review of Systems Constitutional: no fever and no chills Gastrointestinal: no abdominal pain, no blood in stools and no melena Physical Exam Constitutional: well nourished Respiratory: normal respiratory effort Cardiovascular: Extremities: + edema (R>L) Gastrointestinal (Abdomen): Inspection/Auscultation: abdomen normal to inspection Percussion/Palpation: abdomen soft; abdomen nontender Musculoskeletal: Head/Neck/Chest: normocephalic Psychiatric: A+Ox3, euthymic affect Results & Data Results & Data ([facility]) Vital Signs (Past 12 Hours) Vital Signs Temp Pulse Pulse Resp BP Pulse Ox Pulse Ox 03/01/21 08:00 36.8 C 74 20 110/78 98 03/01/21 03:15 36.8 C 64 18 122/64 96 03/01/21 00:59 59 L 03/01/21 00:37 96 02/28/21 23:42 36.7 C 64 18 139/71 96 PG Care Time/CCT Total # of Minutes Spent Total Time Spent with Patient: Total time spent is greater than 50% in coordination of care (as documented) at patient's floor/unit and/or counseling patient: Coding Level of Care Code 91182 Subseq Hosp Care Lvl 3 Diagnoses Liver lesion K76.9 Anemia D64.89 Anemia type: other cause Other causes of anemia: other cause, not classified (1) Anemia Anemia type: other cause Other causes of anemia: other cause, not classified Qualified Code(s): D64.89 - Other specified anemias
[2021-03-01] MEDS: FAMOTIDINE 20 MG TAB PO SCH ×2 (14:18→21:18)
--- NOTE | 2021-03-01 19:42 | Hospitalist Progress Note ---
Date of Service March 01, 2021 Assessment & Plan (1) Liver lesion: unclear cause or etiology, may need to repeat MRI with contrast and consider biopsy if able to reach from periphery (2) Supratherapeutic INR: Patient with supratherapeutic INR at >10 with [id number] bleeding. - Given vitamin k for a total of 10mg IV - Hold Coumadin and Amiodarone- This is maybe causing his elevated levels inr has again decreased and will continue to hold it due to possible biopsy in the future (3) GI bleed: Unspecified- no gross bleeding and not in acute distress or evidence of hypoperfusion/shock - Type and screened for 2 units PRBC - CT abdomen and pelvis without acute pathology continue acid suppression but de escalate to pepcid - Transfuse for acute bleeding, symptomatic, or evidence of shock (4) Anemia: Currently HGB 7.6, transfused now 8.9 - - Will hold BB and antihypertensives at this time, have metoprolol available for rate control of afib - CT head negative, abdomen and pelvis and mri showing some mass in liver some with cyst appearance some wihthout not given contrast due to renal function although radiology feels maybe should have, will discuss with patient risks of mri with contrast and dye issue (5) Diabetes mellitus type 2 in obese: On insulin therapy - Transition to Lantus and Sliding scale insulin (6) HTN (hypertension): Continue to hold hypertensive agents until bleeding source is identified and INR stabilized - Will treat if > 180 - (7) Obesity: Morbidly obese - No acute needs (8) Hyperlipidemia: Lipids tc 102 triglycerides 159 (9) Hepatic cyst: Incidental on abdominal CT scan- evaluate with liver ultrasound in the morning (10) Paroxysmal A-fib: Patient rate controlled. On Coumadin anticoagulation with supratherapeutic INR as above -Hold Coumadin -Monitor INR -restart low dose metoprolol to avoid rebound tachycardia (11) CKD stage 4 due to type 2 diabetes mellitus: Admission and Anticipated Discharge Date Admission Date: February 27, 2021 Subjective Patient is a 65 yo male with anemia & liver lesions. He is not having any GI symptoms. H/H is 8.9/27.8 today. His INR has decreased from >10 to 1.2. He is on PPI therapy & Carafate in case of upper GI bleed, but with stable hgb this is now less likely. Review of Systems Review of Systems: Mild distress and fatigue no headache, blurry or double vision no speech or swallowing issues no chest pain, pressure or palpitations no shortness of breath, cough or wheezes no abdominal pain, nausea or vomiting, diarrhea or constipation no dysuria, hematuria or frequency no focal joint pain or swelling no back pain, CVA tenderness or radicular pain no bruising, bleeding or rashes no focal signs of weakness or numbness or altered sensation no complaints of anxiety or depression. Physical Exam Physical Exam: The patient appeared well nourished and normally developed. he is morbidly obese with bmi 40 Vital signs as documented. Head exam is normocephalic atraumatic no scleral icterus Neck is without JVD, thyromegaly, or carotid bruits. Lungs are clear to auscultation, no focal loss of breath sounds Cardiac exam, Rhythm is regular.. No murmurs, rubs or gallops. Abdominal exam reveals normal bowel sounds, soft non tender, no masses Extremities are nonedematous and both pedal pulses are present Neurologic exam is alert and oriented, no focal loss of strength or sensation Skin is without bruises or rashes Psychologically is without concerns for anxiety or depression Results & Data Results & Data ([facility]) Vital Signs (Past 12 Hours) Vital Signs Temp Pulse Resp BP Pulse Ox 03/01/21 17:19 98.4 F 60 18 138/77 97 03/01/21 13:10 99.3 F 66 20 129/68 97 03/01/21 11:54 98.2 F 65 20 107/76 96 03/01/21 08:00 98.2 F 74 20 110/78 98 PG Care Time/CCT Total # of Minutes Spent Total Time Spent with Patient: Total time spent is greater than 50% in coordination of care (as documented) at patient's floor/unit and/or counseling patient: Coding Level of Care Code 27082 Subseq Hosp Care Lvl 3 Diagnoses Liver lesion K76.9 Supratherapeutic INR R79.1 GI bleed K92.2 GI bleed type/associated pathology: unspecified gastrointestinal hemorrhage type Anemia D64.89 Anemia type: other cause Other causes of anemia: other cause, not classified Diabetes mellitus type 2 in obese E11.69; E66.9 HTN (hypertension) I10 Hypertension type: essential hypertension Obesity E66.01; Z68.41 Obesity type: unspecified obesity type Obesity classification: adult class 3 (BMI >= 40) Serious obesity comorbidity presence: without serious comorbidity Body mass index: BMI 40.0-44.9 Hyperlipidemia E78.5 Hyperlipidemia type: unspecified Hepatic cyst K76.89 Paroxysmal A-fib I48.0 CKD stage 4 due to type 2 diabetes mellitus E11.22; N18.4 (1) GI bleed GI bleed type/associated pathology: unspecified gastrointestinal hemorrhage type Qualified Code(s): K92.2 - Gastrointestinal hemorrhage, unspecified (2) Anemia Anemia type: other cause Other causes of anemia: other cause, not classified Qualified Code(s): D64.89 - Other specified anemias (3) HTN (hypertension) Hypertension type: essential hypertension Qualified Code(s): I10 - Essential (primary) hypertension (4) Obesity Obesity type: unspecified obesity type Obesity classification: adult class 3 (BMI >= 40) Serious obesity comorbidity presence: without serious comorbidity Body mass index: BMI 40.0-44.9 Qualified Code(s): E66.01 - Morbid (severe) obesity due to excess calories; Z68.41 - Body mass index [BMI]40.0-44.9, adult (5) Hyperlipidemia Hyperlipidemia type: unspecified Qualified Code(s): E78.5 - Hyperlipidemia, unspecified
[2021-03-02 06:31] LABS: INR 1.1 (0.9-1.1); Prothrombin Time 11.5 Seconds (9.0-12.0)
[2021-03-02 06:32] LABS: Basophils # (auto) 0.02 K/uL (0-0.2); Basophils % (auto) 0.3 %; Eosinophils # (auto) 0.23 K/uL (0-0.5); Eosinophils % (auto) 3.5 %; Hematocrit (blood only) 26.8 % (42-52); Hemoglobin 8.8 g/dL (14.0-18.0); Immature Granulocytes # (auto) 0.01 K/uL (0.00-0.02); Immature Granulocytes % (auto) 0.2 %; Lymphocytes % (auto) 30.3 %; Mean Corpuscular Hemoglobin 28.6 pg (25-34); Mean Corpuscular Hgb Conc 32.8 g/dL (32-36); Mean Platelet Volume 9.9 fL (7.4-10.4); Monocytes # (auto) 0.91 K/uL (0.11-0.59); Monocytes % (auto) 13.8 %; Neutrophils # (auto) 3.43 K/uL (1.4-6.5); Neutrophils % (auto) 51.9 %; Platelet Count 174 K/uL (130-400); RDW Coefficient of Variation 15.1 % (11.5-14.5); RDW Standard Deviation 47.5 fL (36.4-46.3); Red Blood Count 3.08 M/uL (4.7-6.1)
[2021-03-02 06:57] LABS: BUN Creatinine Ratio 18.9 (10-20); Calcium 8.7 mg/dl (8.5-10.1); Creatinine Clr Calc Pharmacy 33.8 ml/min; Est GFR (African American) 30.7; Est GFR (Non-African American) 26.5; Potassium 4.1 mmol/L (3.5-5.1)
[2021-03-02] MEDS: METOPROLOL TARTRATE 25 MG TAB PO SCH ×2 (09:16→22:04)
[2021-03-02] MEDS: FAMOTIDINE 20 MG TAB PO SCH ×2 (09:16→22:04)
[2021-03-02] MEDS: AMIODARONE 200 MG TAB PO SCH ×2 (09:16→18:19)
[2021-03-02] MEDS: SUCRALFATE 1 GM/10 ML UDC PO SCH ×4 (09:16→22:04)
[2021-03-02] MEDS: INSULIN ASPART 100 UNITS/ML 3 ML PEN SC SCH ×4 (09:19→22:00)
[2021-03-02] MEDS: INSULIN GLARGINE SOLOSTAR 100 UNITS/ML 3 ML PEN SC SCH ×2 (09:20→21:59)
--- NOTE | 2021-03-02 19:24 | Hospitalist Progress Note ---
Date of Service March 02, 2021 Assessment & Plan (1) Liver lesion: unclear cause or etiology, discussion with radiologist today feels overall the "new" lesions look fairly benign but with concern for etiology may need to repeat MRI with contrast and consider biopsy if able to reach from periphery. However will not have contrast unless GFR >30 will start acetylcistine and hydrate consider MRI if labs improve Custodial physician request possible workup prior to discharge (2) Supratherapeutic INR: Patient with supratherapeutic INR at >10 with [id number] bleeding. - Given vitamin k for a total of 10mg IV - Hold Coumadin and Amiodarone- This is maybe causing his elevated levels inr has again decreased and will continue to hold it due to possible biopsy in the future (3) GI bleed: Unspecified- no gross bleeding and not in acute distress or evidence of hypoperfusion/shock - Type and screened for 2 units PRBC, now melena suspect just passing old blood from time of elevated INR - CT abdomen and pelvis without acute pathology continue acid suppression but de escalate to pepcid - Transfuse for acute bleeding, symptomatic, or evidence of shock (4) Anemia: Currently HGB 7.6, transfused now 8.9 - - Will hold BB and antihypertensives at this time, have metoprolol available for rate control of afib - CT head negative, abdomen and pelvis and mri showing some mass in liver some with cyst appearance some wihthout not given contrast due to renal function although radiology feels maybe should have, will discuss with patient risks of mri with contrast and dye issue (5) Diabetes mellitus type 2 in obese: On insulin therapy - Transition to Lantus and Sliding scale insulin (6) HTN (hypertension): Continue to hold hypertensive agents until bleeding source is identified and INR stabilized - Will treat if > 180 - (7) Obesity: Morbidly obese - No acute needs (8) Hyperlipidemia: Lipids tc 102 triglycerides 159 (9) Paroxysmal A-fib: Patient rate controlled. On Coumadin anticoagulation with supratherapeutic INR as above -Hold Coumadin -Monitor INR -restart low dose metoprolol to avoid rebound tachycardia (10) CKD stage 4 due to type 2 diabetes mellitus: Admission and Anticipated Discharge Date Admission Date: February 27, 2021 Subjective Patient is a 65 yo male with anemia & liver lesions. He is not having any GI symptoms. H/H is 8.9/27.8 today. His INR has decreased from >10 to 1.2. He is on PPI therapy & Carafate in case of upper GI bleed, but with stable hgb now having black bowel movements Review of Systems Review of Systems: Mild distress and fatigue no headache, blurry or double vision no speech or swallowing issues no chest pain, pressure or palpitations no shortness of breath, cough or wheezes no abdominal pain, nausea or vomiting, diarrhea or constipation no dysuria, hematuria or frequency no focal joint pain or swelling no back pain, CVA tenderness or radicular pain no bruising, bleeding or rashes no focal signs of weakness or numbness or altered sensation no complaints of anxiety or depression. Physical Exam Physical Exam: The patient appeared well nourished and normally developed. he is morbidly obese with bmi 40 Vital signs as documented. Head exam is normocephalic atraumatic no scleral icterus Neck is without JVD, thyromegaly, or carotid bruits. Lungs are clear to auscultation, no focal loss of breath sounds Cardiac exam, Rhythm is regular.. No murmurs, rubs or gallops. Abdominal exam reveals normal bowel sounds, soft non tender, no masses Extremities are nonedematous and both pedal pulses are present Neurologic exam is alert and oriented, no focal loss of strength or sensation Skin is without bruises or rashes Psychologically is without concerns for anxiety or depression Results & Data Results & Data ([facility]) Vital Signs (Past 12 Hours) Vital Signs Temp Pulse Pulse Resp BP Pulse Ox 03/02/21 09:14 62 03/02/21 08:23 98.4 F 57 L 18 166/78 H 96 PG Care Time/CCT Total # of Minutes Spent Total Time Spent with Patient: Total time spent is greater than 50% in coordination of care (as documented) at patient's floor/unit and/or counseling patient: Coding Level of Care Code 48290 Subseq Hosp Care Lvl 3 Diagnoses Liver lesion K76.9 Supratherapeutic INR R79.1 GI bleed K92.2 GI bleed type/associated pathology: unspecified gastrointestinal hemorrhage type Anemia D64.89 Anemia type: other cause Other causes of anemia: other cause, not classified Diabetes mellitus type 2 in obese E11.69; E66.9 HTN (hypertension) I10 Hypertension type: essential hypertension Obesity E66.01; Z68.41 Obesity type: unspecified obesity type Obesity classification: adult class 3 (BMI >= 40) Serious obesity comorbidity presence: without serious comorbidity Body mass index: BMI 40.0-44.9 Hyperlipidemia E78.5 Hyperlipidemia type: unspecified Paroxysmal A-fib I48.0 CKD stage 4 due to type 2 diabetes mellitus E11.22; N18.4 (1) GI bleed GI bleed type/associated pathology: unspecified gastrointestinal hemorrhage type Qualified Code(s): K92.2 - Gastrointestinal hemorrhage, unspecified (2) Anemia Anemia type: other cause Other causes of anemia: other cause, not classified Qualified Code(s): D64.89 - Other specified anemias (3) HTN (hypertension) Hypertension type: essential hypertension Qualified Code(s): I10 - Essential (primary) hypertension (4) Obesity Obesity type: unspecified obesity type Obesity classification: adult class 3 (BMI >= 40) Serious obesity comorbidity presence: without serious comorbidity Body mass index: BMI 40.0-44.9 Qualified Code(s): E66.01 - Morbid (severe) obesity due to excess calories; Z68.41 - Body mass index [BMI]40.0-44.9, adult (5) Hyperlipidemia Hyperlipidemia type: unspecified Qualified Code(s): E78.5 - Hyperlipidemia, unspecified
[2021-03-02] MEDS ORDERED: hydrALAZINE HCL 20 MG/ML VIAL IV PRN (19:25)
[2021-03-02] MEDS: LACTATED RINGER'S 1,000 ML IV SCH (21:54)
[2021-03-02] MEDS: ACETYLCYSTEINE 600 MG CAP PO SCH (21:59)
[2021-03-03] MEDS: LACTATED RINGER'S 1,000 ML IV SCH ×3 (05:37→22:35)
[2021-03-03 06:57] LABS: INR 1.1 (0.9-1.1); Prothrombin Time 11.4 Seconds (9.0-12.0)
[2021-03-03 07:12] LABS: BUN Creatinine Ratio 19.3 (10-20); Calcium 8.6 mg/dl (8.5-10.1); Creatinine Clr Calc Pharmacy 34.9 ml/min; Est GFR (African American) 31.9; Est GFR (Non-African American) 27.5; Potassium 4.2 mmol/L (3.5-5.1)
[2021-03-03] MEDS: SUCRALFATE 1 GM/10 ML UDC PO SCH ×4 (08:22→21:17)
[2021-03-03] MEDS: METOPROLOL TARTRATE 25 MG TAB PO SCH ×2 (08:22→21:17)
[2021-03-03] MEDS: ACETYLCYSTEINE 600 MG CAP PO SCH ×2 (08:22→21:17)
[2021-03-03] MEDS: FAMOTIDINE 20 MG TAB PO SCH ×2 (08:22→21:17)
[2021-03-03] MEDS: AMIODARONE 200 MG TAB PO SCH ×2 (08:22→17:33)
[2021-03-03] MEDS: INSULIN ASPART 100 UNITS/ML 3 ML PEN SC SCH ×4 (09:12→21:18)
[2021-03-03] MEDS: INSULIN GLARGINE SOLOSTAR 100 UNITS/ML 3 ML PEN SC SCH ×2 (09:13→21:18)
--- NOTE | 2021-03-03 18:05 | Hospitalist Progress Note ---
Date of Service March 03, 2021 Assessment & Plan (1) Liver lesion: unclear cause or etiology, discussion with radiologist today feels overall the "new" lesions look fairly benign but with concern for etiology may need to repeat MRI with contrast and consider biopsy if able to reach from periphery. However will not have contrast unless GFR >30 did start acetylcistine and hydrate consider MRI if labs improve, gfr did improve some will hope to get to appropriate level and then order abd mri with contrast Long-Term physician request possible workup prior to discharge (2) Supratherapeutic INR: Patient with supratherapeutic INR at >10 with [id number] bleeding. - Given vitamin k for a total of 10mg IV - Hold Coumadin and Amiodarone- This is maybe causing his elevated levels inr has again decreased and will continue to hold it due to possible biopsy in the future (3) GI bleed: Unspecified- no gross bleeding and not in acute distress or evidence of hypoperfusion/shock - Type and screened for 2 units PRBC, now melena suspect just passing old blood from time of elevated INR - CT abdomen and pelvis without acute pathology continue acid suppression but de escalate to pepcid - Transfuse for acute bleeding, symptomatic, or evidence of shock (4) Anemia: Currently HGB 7.6, transfused now 8.9 - - Will hold BB and antihypertensives at this time, have metoprolol available for rate control of afib - CT head negative, abdomen and pelvis and mri showing some mass in liver some with cyst appearance some wihthout not given contrast due to renal function although radiology feels maybe should have, will discuss with patient risks of mri with contrast and dye issue (5) Diabetes mellitus type 2 in obese: On insulin therapy - Transition to Lantus and Sliding scale insulin (6) HTN (hypertension): Continue to hold hypertensive agents until bleeding source is identified and INR stabilized - Will treat if > 180 - (7) Obesity: Morbidly obese - No acute needs (8) Hyperlipidemia: Lipids tc 102 triglycerides 159 (9) Paroxysmal A-fib: Patient rate controlled. On Coumadin anticoagulation with supratherapeutic INR as above -Hold Coumadin -Monitor INR -restart low dose metoprolol to avoid rebound tachycardia (10) CKD stage 4 due to type 2 diabetes mellitus: Admission and Anticipated Discharge Date Admission Date: February 27, 2021 Subjective Patient is a 65 yo male with anemia & liver lesions. He is not having any GI symptoms. H/H is 8.9/27.8 today. His INR has decreased from >10 to 1.2. He is on PPI therapy & Carafate in case of upper GI bleed, but with stable hgb did have some black bowel movements Review of Systems Review of Systems: Mild distress and fatigue no headache, blurry or double vision no speech or swallowing issues no chest pain, pressure or palpitations no shortness of breath, cough or wheezes no abdominal pain, nausea or vomiting, diarrhea or constipation no dysuria, hematuria or frequency no focal joint pain or swelling no back pain, CVA tenderness or radicular pain no bruising, bleeding or rashes no focal signs of weakness or numbness or altered sensation no complaints of anxiety or depression. Physical Exam Physical Exam: The patient appeared well nourished and normally developed. he is morbidly obese with bmi 40 Vital signs as documented. Head exam is normocephalic atraumatic no scleral icterus Neck is without JVD, thyromegaly, or carotid bruits. Lungs are clear to auscultation, no focal loss of breath sounds Cardiac exam, Rhythm is regular.. No murmurs, rubs or gallops. Abdominal exam reveals normal bowel sounds, soft non tender, no masses Extremities are nonedematous and both pedal pulses are present Neurologic exam is alert and oriented, no focal loss of strength or sensation Skin is without bruises or rashes Psychologically is without concerns for anxiety or depression Results & Data Results & Data ([facility]) Vital Signs (Past 12 Hours) Vital Signs Temp Pulse Pulse Resp BP Pulse Ox 03/03/21 16:53 98.2 F 60 18 146/76 H 97 03/03/21 08:20 98.6 F 61 16 138/79 95 PG Care Time/CCT Total # of Minutes Spent Total Time Spent with Patient: Total time spent is greater than 50% in coordination of care (as documented) at patient's floor/unit and/or counseling patient: Coding Level of Care Code 58369 Subseq Hosp Care Lvl 2 Diagnoses Liver lesion K76.9 Supratherapeutic INR R79.1 GI bleed K92.2 GI bleed type/associated pathology: unspecified gastrointestinal hemorrhage type Anemia D64.89 Anemia type: other cause Other causes of anemia: other cause, not classified Diabetes mellitus type 2 in obese E11.69; E66.9 HTN (hypertension) I10 Hypertension type: essential hypertension Obesity E66.01; Z68.41 Obesity type: unspecified obesity type Obesity classification: adult class 3 (BMI >= 40) Serious obesity comorbidity presence: without serious comorbidity Body mass index: BMI 40.0-44.9 Hyperlipidemia E78.5 Hyperlipidemia type: unspecified Paroxysmal A-fib I48.0 CKD stage 4 due to type 2 diabetes mellitus E11.22; N18.4 (1) GI bleed GI bleed type/associated pathology: unspecified gastrointestinal hemorrhage type Qualified Code(s): K92.2 - Gastrointestinal hemorrhage, unspecified (2) Anemia Anemia type: other cause Other causes of anemia: other cause, not classified Qualified Code(s): D64.89 - Other specified anemias (3) HTN (hypertension) Hypertension type: essential hypertension Qualified Code(s): I10 - Essential (primary) hypertension (4) Obesity Obesity type: unspecified obesity type Obesity classification: adult class 3 (BMI >= 40) Serious obesity comorbidity presence: without serious comorbidity Body mass index: BMI 40.0-44.9 Qualified Code(s): E66.01 - Morbid (severe) obesity due to excess calories; Z68.41 - Body mass index [BMI]40.0-44.9, adult (5) Hyperlipidemia Hyperlipidemia type: unspecified Qualified Code(s): E78.5 - Hyperlipidemia, unspecified
[2021-03-04] MEDS: LACTATED RINGER'S 1,000 ML IV SCH ×3 (05:46→20:55)
[2021-03-04 07:32] LABS: Hematocrit (blood only) 25.6 % (42-52); Hemoglobin 8.1 g/dL (14.0-18.0); Mean Corpuscular Hemoglobin 28.1 pg (25-34); Mean Corpuscular Hgb Conc 31.6 g/dL (32-36); Mean Corpuscular Volume 88.9 fL (80-100); Mean Platelet Volume 9.6 fL (7.4-10.4); Platelet Count 159 K/uL (130-400); RDW Coefficient of Variation 15.1 % (11.5-14.5); RDW Standard Deviation 48.6 fL (36.4-46.3); Red Blood Count 2.88 M/uL (4.7-6.1); White Blood Count 6.22 K/uL (4.8-10.8)
[2021-03-04] MEDS: AMIODARONE 200 MG TAB PO SCH ×2 (08:13→17:11)
[2021-03-04] MEDS: METOPROLOL TARTRATE 25 MG TAB PO SCH ×2 (08:13→20:55)
[2021-03-04] MEDS: ACETYLCYSTEINE 600 MG CAP PO SCH ×2 (08:13→20:55)
[2021-03-04] MEDS: FAMOTIDINE 20 MG TAB PO SCH ×2 (08:13→20:55)
[2021-03-04] MEDS: SUCRALFATE 1 GM/10 ML UDC PO SCH ×4 (08:13→20:55)
[2021-03-04 08:16] LABS: BUN Creatinine Ratio 16.9 (10-20); Calcium 8.8 mg/dl (8.5-10.1); Creatinine Clr Calc Pharmacy 32.8 ml/min; Est GFR (African American) 29.5; Est GFR (Non-African American) 25.5; Potassium 4.2 mmol/L (3.5-5.1)
[2021-03-04] MEDS: INSULIN ASPART 100 UNITS/ML 3 ML PEN SC SCH ×4 (09:03→21:00)
[2021-03-04] MEDS: INSULIN GLARGINE SOLOSTAR 100 UNITS/ML 3 ML PEN SC SCH ×2 (09:04→20:58)
--- NOTE | 2021-03-04 15:32 | Hospitalist Progress Note ---
Date of Service March 04, 2021 Assessment & Plan (1) Liver lesion: unclear cause or etiology, discussion with radiologist by previous hospitalist feels overall the "new" lesions look fairly benign but with concern for etiology may need to repeat MRI with contrast and consider biopsy if able to reach from peripherally However will not have contrast unless GFR >30 GFR is 29 today despite IV fluids, Cr is 2.57, likely his baseline stop fluids speak with radiology further about possible work up Detention physician request possible workup prior to discharge (2) Supratherapeutic INR: Patient with supratherapeutic INR at >10 with [id number] bleeding. - Given vitamin k for a total of 10mg IV - Hold Coumadin and Amiodarone- This is maybe causing his elevated levels inr has again decreased and will continue to hold it due to possible biopsy in the future (3) GI bleed: Unspecified- no gross bleeding and not in acute distress or evidence of hypoperfusion/shock - Type and screened for 2 units PRBC, now melena suspect just passing old blood from time of elevated INR - CT abdomen and pelvis without acute pathology continue acid suppression but de escalate to pepcid - Transfuse for acute bleeding, symptomatic, or evidence of shock Hb down slightly at 8.1 (4) Anemia: Hb down to 8.1 but no signs of bleeding - - Will hold BB and antihypertensives at this time, have metoprolol available for rate control of afib - CT head negative, abdomen and pelvis and mri showing some mass in liver some with cyst appearance some wihthout not given contrast due to renal function although radiology feels maybe should have, will discuss with patient risks of mri with contrast and dye issue (5) Diabetes mellitus type 2 in obese: On insulin therapy - Transition to Lantus and Sliding scale insulin (6) HTN (hypertension): Continue to hold hypertensive agents until bleeding source is identified and INR stabilized - Will treat if > 180 - (7) Obesity: Morbidly obese - No acute needs (8) Hyperlipidemia: Lipids tc 102 triglycerides 159 (9) Paroxysmal A-fib: Patient rate controlled. On Coumadin anticoagulation with supratherapeut ic INR as above -Hold Coumadin -Monitor INR -restart low dose metoprolol to avoid rebound tachycardia (10) CKD stage 4 due to type 2 diabetes mellitus: Admission and Anticipated Discharge Date Admission Date: February 27, 2021 Subjective patient feels fine today, no issues at all eating and drinking well, breathing comfortably, no melena, no hematochezia Cr is 2.57, GFR still not quite good enough at 29 will need to discuss further with radiology, MRI vs US biopsy if possible will stop further fluids right now as urine is clear and CR is not changing with fluids Review of Systems Review of Systems: All systems reviewed & are unremarkable except as noted in Subjective Physical Exam Constitutional: WD/WN, vitals as above + obese Neck: trachea midline, no thyromegaly Respiratory: normal respiratory effort, lungs clear to auscultation Cardiovascular: RRR, no murmur, no edema Gastrointestinal (Abdomen): normal bowel sounds, soft, nontender, no hepatosplenomegaly Musculoskeletal: no cyanosis or clubbing, extremities motor strength 5/5 Skin: no rashes, warm and dry Neurologic: patellar DTR's 2+ bilat, sensation intact and PERRL, EOMI, accommodation nl, no face palsy, no dysarthria Psychiatric: A+Ox3, euthymic affect Lymphatic: no cervical or axillary lymphadenopathy Results & Data Results & Data ([facility]) Vital Signs (Past 12 Hours) Vital Signs Temp Pulse Resp BP Pulse Ox 03/04/21 08:11 60 156/78 H 03/04/21 07:09 37.1 C 58 L 16 146/76 H 97 Laboratory Results Laboratory Results - last 24 hr 03/03/21 03/03/21 03/03/21 07:53 12:01 16:50 WBC RBC Hgb Hct MCV MCH MCHC RDW Std Deviation RDW Coeff of Sharad Plt Count MPV Sodium Potassium Chloride Carbon Dioxide Anion Gap BUN Creatinine Est Cr Clr Drug Dosing Est GFR ( Amer) Est GFR (Non-Af Amer) BUN/Creatinine Ratio Glucose POC Glucose 141 H 237 H 158 H Calcium 03/03/21 03/04/21 03/04/21 20:35 06:38 06:38 WBC 6.22 RBC 2.88 L Hgb 8.1 L Hct 25.6 L MCV 88.9 MCH 28.1 MCHC 31.6 L RDW Std Deviation 48.6 H RDW Coeff of Sharad 15.1 H Plt Count 159 MPV 9.6 Sodium 141 Potassium 4.2 Chloride 109 H Carbon Dioxide 27 Anion Gap 6.0 BUN 44 H Creatinine 2.57 H Est Cr Clr Drug Dosing 32.8 Est GFR ( Amer) 29.5 Est GFR (Non-Af Amer) 25.5 BUN/Creatinine Ratio 16.9 Glucose 111 H POC Glucose 176 H Calcium 8.8 03/04/21 03/04/21 08:30 12:19 WBC RBC Hgb Hct MCV MCH MCHC RDW Std Deviation RDW Coeff of Sharad Plt Count MPV Sodium Potassium Chloride Carbon Dioxide Anion Gap BUN Creatinine Est Cr Clr Drug Dosing Est GFR ( Amer) Est GFR (Non-Af Amer) BUN/Creatinine Ratio Glucose POC Glucose 131 H 162 H Calcium Medications Administered Current Inpatient Medications Acetaminophen (Acetaminophen 325 Mg Tab) 650 mg PO Q4H PRN PRN Reason: Pain or Fever Stop: 03/30/21 00:36 Acetylcysteine (Acetylcysteine 600 Mg Cap) 600 mg PO BID [facility] Stop: 03/05/21 09:01 Last Admin: 03/04/21 08:13 Dose: 600 mg Documented by: Amiodarone HCl (Amiodarone 200 Mg Tab) 200 mg PO BIDM [facility] Stop: 03/31/21 07:59 Last Admin: 03/04/21 08:13 Dose: 200 mg Documented by: Dextrose (Dextrose 50% 50 Ml Syringe) 25 - 50 ml IV UD PRN; Protocol PRN Reason: Hypoglycemia Protocol Stop: 03/30/21 00:36 Famotidine (Famotidine 20 Mg Tab) 20 mg PO BID [facility] Stop: 03/31/21 13:29 Last Admin: 03/04/21 08:13 Dose: 20 mg Documented by: Glucagon (Glucagon For Inj 1 Mg Vial) 1 mg SQ UD PRN; Protocol PRN Reason: Hypoglycemia Protocol Stop: 03/30/21 00:36 Glucose (Glucose 10 Tabs/Tube) 4 - 8 tabs PO UD PRN; Protocol PRN Reason: Hypoglycemia Protocol Stop: 03/30/21 00:36 Glucose (Glucose 40% Gel 15 Gm Tube) 15 - 30 gm PO UD PRN; Protocol PRN Reason: Hypoglycemia Protocol Stop: 03/30/21 00:36 Hydralazine HCl (Hydralazine Hcl 20 Mg/Ml Vial) 10 mg IV Q8 PRN PRN Reason: Blood Pressure - High Stop: 04/01/21 19:24 Lactated Ringer's (Lr) 1,000 mls @ 125 mls/hr IV .Q8H [facility] Stop: 04/01/21 19:29 Last Admin: 03/04/21 14:25 Dose: 125 mls/hr Documented by: Insulin Aspart (Insulin Aspart 100 Units/Ml 3 Ml Pen) 0 units SC ACHS [facility] Stop: 03/30/21 20:59 Last Admin: 03/04/21 12:56 Dose: 10 units Documented by: Insulin Glargine (Insulin Glargine Solostar 100 Units/Ml 3 Ml Pen) 15 units SC BID [facility] Stop: 03/30/21 08:59 Last Admin: 03/04/21 09:04 Dose: 15 units Documented by: Metoprolol Tartrate (Metoprolol Tartrate 1 Mg/Ml Vial) 5 mg IV Q4H PRN PRN Reason: sbp> 185, dbp >95, HR >120 Stop: 03/30/21 17:08 Metoprolol Tartrate (Metoprolol Tartrate 25 Mg Tab) 25 mg PO BID [facility] Stop: 03/30/21 20:59 Last Admin: 03/04/21 08:13 Dose: 25 mg Documented by: Miscellaneous (Carbohydrates For Hypoglycemia ) 15 - 30 gm PO UD PRN PRN Reason: Hypoglycemia Protocol Stop: 03/30/21 00:36 Ondansetron HCl (Ondansetron Inj 2 Mg/Ml 2 Ml Vial) 4 mg IV Q6H PRN PRN Reason: Nausea Stop: 03/30/21 00:36 Sucralfate (Sucralfate 1 Gm/10 Ml Udc) 1 gm PO QID [facility] Stop: 03/30/21 12:59 Last Admin: 03/04/21 13:02 Dose: 1 gm Documented by: PG Care Time/CCT Total # of Minutes Spent Total Time Spent with Patient: Total time spent is greater than 50% in coordination of care (as documented) at patient's floor/unit and/or counseling patient: Coding Level of Care Code 75841 Subseq Hosp Care Lvl 2 Diagnoses Liver lesion K76.9 Supratherapeutic INR R79.1 GI bleed K92.2 GI bleed type/associated pathology: unspecified gastrointestinal hemorrhage type Anemia D64.89 Anemia type: other cause Other causes of anemia: other cause, not classified Diabetes mellitus type 2 in obese E11.69; E66.9 HTN (hypertension) I10 Hypertension type: essential hypertension Obesity E66.01; Z68.41 Body mass index: BMI 40.0-44.9 Obesity classification: adult class 3 (BMI >= 40) Obesity type: unspecified obesity type Serious obesity comorbidity presence: without serious comorbidity Hyperlipidemia E78.5 Hyperlipidemia type: unspecified Paroxysmal A-fib I48.0 CKD stage 4 due to type 2 diabetes mellitus E11.22; N18.4 (1) GI bleed GI bleed type/associated pathology: unspecified gastrointestinal hemorrhage type Qualified Code(s): K92.2 - Gastrointestinal hemorrhage, unspecified (2) Anemia Anemia type: other cause Other causes of anemia: other cause, not classified Qualified Code(s): D64.89 - Other specified anemias (3) Hyperlipidemia Hyperlipidemia type: unspecified Qualified Code(s): E78.5 - Hyperlipidemia, unspecified (4) HTN (hypertension) Hypertension type: essential hypertension Qualified Code(s): I10 - Essential (primary) hypertension (5) Obesity Body mass index: BMI 40.0-44.9 Obesity classification: adult class 3 (BMI >= 40) Obesity type: unspecified obesity type Serious obesity comorbidity presence: without serious comorbidity Qualified Code(s): E66.01 - Morbid (severe) obesity due to excess calories; Z68.41 - Body mass index [BMI]40.0- 44.9, adult
[2021-03-05] MEDS: LACTATED RINGER'S 1,000 ML IV SCH ×3 (04:39→20:51)
[2021-03-05 07:06] LABS: BUN Creatinine Ratio 16.5 (10-20); Calcium 8.3 mg/dl (8.5-10.1); Creatinine Clr Calc Pharmacy 32.5 ml/min; Est GFR (African American) 29.2; Est GFR (Non-African American) 25.2; Potassium 4.2 mmol/L (3.5-5.1)
[2021-03-05] MEDS: METOPROLOL TARTRATE 25 MG TAB PO SCH ×2 (08:57→20:56)
[2021-03-05] MEDS: FAMOTIDINE 20 MG TAB PO SCH ×2 (08:58→20:56)
[2021-03-05] MEDS: SUCRALFATE 1 GM/10 ML UDC PO SCH ×4 (08:58→20:56)
[2021-03-05] MEDS: AMIODARONE 200 MG TAB PO SCH ×2 (08:58→17:00)
[2021-03-05] MEDS: ACETYLCYSTEINE 600 MG CAP PO SCH (08:58)
[2021-03-05] MEDS: INSULIN GLARGINE SOLOSTAR 100 UNITS/ML 3 ML PEN SC SCH ×2 (08:58→20:57)
[2021-03-05] MEDS: INSULIN ASPART 100 UNITS/ML 3 ML PEN SC SCH ×4 (08:59→20:57)
--- NOTE | 2021-03-05 15:17 | Hospitalist Progress Note ---
Date of Service March 05, 2021 Assessment & Plan (1) Liver lesion: unclear cause or etiology, discussion with radiologist by previous hospitalist feels overall the "new" lesions look fairly benign but with concern for etiology may need to repeat MRI with contrast and consider biopsy if able to reach from peripherally However will not have contrast unless GFR >30 GFR is 27 today despite IV fluids, Cr is 2.59, likely his baseline stop fluids speak with radiology further about possible work up [facility] physician request possible workup prior to discharge (2) Supratherapeutic INR: Patient with supratherapeutic INR at >10 with [id number]-bpwucwkscbu bleeding. - Given vitamin k for a total of 10mg IV - Hold Coumadin and Amiodarone- This is maybe causing his elevated levels inr has again decreased and will continue to hold it due to possible biopsy in the future (3) GI bleed: Unspecified- no gross bleeding and not in acute distress or evidence of hypoperfusion/shock - Type and screened for 2 units PRBC, now melena suspect just passing old blood from time of elevated INR - CT abdomen and pelvis without acute pathology continue acid suppression but de escalate to pepcid - Transfuse for acute bleeding, symptomatic, or evidence of shock Hb down slightly at 8.1 on 03/04, repeat tomorrow (4) Anemia: Hb down to 8.1 but no signs of bleeding - - Will hold BB and antihypertensives at this time, have metoprolol available for rate control of afib - CT head negative, abdomen and pelvis and mri showing some mass in liver some with cyst appearance some wihthout not given contrast due to renal function although radiology feels maybe should have, will discuss with patient risks of mri with contrast and dye issue (5) Diabetes mellitus type 2 in obese: On insulin therapy - Transition to Lantus and Sliding scale insulin (6) HTN (hypertension): Continue to hold hypertensive agents until bleeding source is identified and INR stabilized - Will treat if > 180 - (7) Obesity: Morbidly obese - No acute needs (8) Hyperlipidemia: Lipids tc 102 triglycerides 159 (9) Paroxysmal A-fib: Patient rate controlled. On Coumadin anticoagulation with supratherapeutic INR as above -Hold Coumadin -Monitor INR -restart low dose metoprolol to avoid rebound tachycardia (10) CKD stage 4 due to type 2 diabetes mellitus: Admission and Anticipated Discharge Date Admission Date: February 27, 2021 Subjective attempted to get MRI liver today, but radiology said GFR was too low will discuss with them in the morning Review of Systems Review of Systems: All systems reviewed & are unremarkable except as noted in Subjective Physical Exam Constitutional: WD/WN, vitals as above + obese Neck: trachea midline, no thyromegaly Respiratory: normal respiratory effort, lungs clear to auscultation Cardiovascular: RRR, no murmur, no edema Gastrointestinal (Abdomen): normal bowel sounds, soft, nontender, no hepatosplenomegaly Musculoskeletal: no cyanosis or clubbing, extremities motor strength 5/5 Skin: no rashes, warm and dry Neurologic: patellar DTR's 2+ bilat, sensation intact and PERRL, EOMI, accommodation nl, no face palsy, no dysarthria Psychiatric: A+Ox3, euthymic affect Lymphatic: no cervical or axillary lymphadenopathy Results & Data Results & Data ([facility]) Vital Signs (Past 12 Hours) Vital Signs Temp Pulse Resp BP Pulse Ox 03/05/21 07:43 37.1 C 59 L 16 146/79 H 98 Laboratory Results Laboratory Results - last 24 hr 03/04/21 03/04/21 03/05/21 17:10 20:47 06:04 Sodium 141 Potassium 4.2 Chloride 110 H Carbon Dioxide 26 Anion Gap 5.0 BUN 43 H Creatinine 2.59 H Est Cr Clr Drug Dosing 32.5 Est GFR ( Amer) 29.2 Est GFR (Non-Af Amer) 25.2 BUN/Creatinine Ratio 16.5 Glucose 110 H POC Glucose 182 H 127 H Calcium 8.3 L 03/05/21 03/05/21 08:32 12:33 Sodium Potassium Chloride Carbon Dioxide Anion Gap BUN Creatinine Est Cr Clr Drug Dosing Est GFR ( Amer) Est GFR (Non-Af Amer) BUN/Creatinine Ratio Glucose POC Glucose 125 H 182 H Calcium Medications Administered Current Inpatient Medications Acetaminophen (Acetaminophen 325 Mg Tab) 650 mg PO Q4H PRN PRN Reason: Pain or Fever Stop: 03/30/21 00:36 Amiodarone HCl (Amiodarone 200 Mg Tab) 200 mg PO BIDM [facility] Stop: 03/31/21 07:59 Last Admin: 03/05/21 08:58 Dose: 200 mg Documented by: Dextrose (Dextrose 50% 50 Ml Syringe) 25 - 50 ml IV UD PRN; Protocol PRN Reason: Hypoglycemia Protocol Stop: 03/30/21 00:36 Famotidine (Famotidine 20 Mg Tab) 20 mg PO BID [facility] Stop: 03/31/21 13:29 Last Admin: 03/05/21 08:58 Dose: 20 mg Documented by: Glucagon (Glucagon For Inj 1 Mg Vial) 1 mg SQ UD PRN; Protocol PRN Reason: Hypoglycemia Protocol Stop: 03/30/21 00:36 Glucose (Glucose 10 Tabs/Tube) 4 - 8 tabs PO UD PRN; Protocol PRN Reason: Hypoglycemia Protocol Stop: 03/30/21 00:36 Glucose (Glucose 40% Gel 15 Gm Tube) 15 - 30 gm PO UD PRN; Protocol PRN Reason: Hypoglycemia Protocol Stop: 03/30/21 00:36 Hydralazine HCl (Hydralazine Hcl 20 Mg/Ml Vial) 10 mg IV Q8 PRN PRN Reason: Blood Pressure - High Stop: 04/01/21 19:24 Lactated Ringer's (Lr) 1,000 mls @ 125 mls/hr IV .Q8H [facility] Stop: 04/01/21 19:29 Last Admin: 03/05/21 12:39 Dose: 125 mls/hr Documented by: Insulin Aspart (Insulin Aspart 100 Units/Ml 3 Ml Pen) 0 units SC ACHS [facility] Stop: 03/30/21 20:59 Last Admin: 03/05/21 13:03 Dose: 12 units Documented by: Insulin Glargine (Insulin Glargine Solostar 100 Units/Ml 3 Ml Pen) 15 units SC BID [facility] Stop: 03/30/21 08:59 Last Admin: 03/05/21 08:58 Dose: 15 units Documented by: Metoprolol Tartrate (Metoprolol Tartrate 1 Mg/Ml Vial) 5 mg IV Q4H PRN PRN Reason: sbp> 185, dbp >95, HR >120 Stop: 03/30/21 17:08 Metoprolol Tartrate (Metoprolol Tartrate 25 Mg Tab) 25 mg PO BID [facility] Stop: 03/30/21 20:59 Last Admin: 03/05/21 08:57 Dose: 25 mg Documented by: Miscellaneous (Carbohydrates For Hypoglycemia ) 15 - 30 gm PO UD PRN PRN Reason: Hypoglycemia Protocol Stop: 03/30/21 00:36 Ondansetron HCl (Ondansetron Inj 2 Mg/Ml 2 Ml Vial) 4 mg IV Q6H PRN PRN Reason: Nausea Stop: 03/30/21 00:36 Sucralfate (Sucralfate 1 Gm/10 Ml Udc) 1 gm PO QID [facility] Stop: 03/30/21 12:59 Last Admin: 03/05/21 13:02 Dose: 1 gm Documented by: PG Care Time/CCT Total # of Minutes Spent Total Time Spent with Patient: Total time spent is greater than 50% in coordination of care (as documented) at patient's floor/unit and/or counseling patient: Coding Level of Care Code 16715 Subseq Hosp Care Lvl 1 Diagnoses Liver lesion K76.9 Supratherapeutic INR R79.1 GI bleed K92.2 GI bleed type/associated pathology: unspecified gastrointestinal hemorrhage type Anemia D64.89 Anemia type: other cause Other causes of anemia: other cause, not classified Diabetes mellitus type 2 in obese E11.69; E66.9 HTN (hypertension) I10 Hypertension type: essential hypertension Obesity E66.01; Z68.41 Body mass index: BMI 40.0-44.9 Obesity classification: adult class 3 (BMI >= 40) Obesity type: unspecified obesity type Serious obesity comorbidity presence: without serious comorbidity Hyperlipidemia E78.5 Hyperlipidemia type: unspecified Paroxysmal A-fib I48.0 CKD stage 4 due to type 2 diabetes mellitus E11.22; N18.4 (1) GI bleed GI bleed type/associated pathology: unspecified gastrointestinal hemorrhage type Qualified Code(s): K92.2 - Gastrointestinal hemorrhage, unspecified (2) Anemia Anemia type: other cause Other causes of anemia: other cause, not classified Qualified Code(s): D64.89 - Other specified anemias (3) Hyperlipidemia Hyperlipidemia type: unspecified Qualified Code(s): E78.5 - Hyperlipidemia, unspecified (4) HTN (hypertension) Hypertension type: essential hypertension Qualified Code(s): I10 - Essential (primary) hypertension (5) Obesity Body mass index: BMI 40.0-44.9 Obesity classification: adult class 3 (BMI >= 40) Obesity type: unspecified obesity type Serious obesity comorbidity presence: without serious comorbidity Qualified Code(s): E66.01 - Morbid (severe) obesity due to excess calories; Z68.41 - Body mass index [BMI]40.0- 44.9, adult
[2021-03-06] MEDS ORDERED: Nursing to Pharmacy Communication SCH ×2 (00:30→05:30)
[2021-03-06 04:46] LABS: Hematocrit (blood only) 24.1 % (42-52); Hemoglobin 7.6 g/dL (14.0-18.0); Mean Corpuscular Hemoglobin 27.8 pg (25-34); Mean Corpuscular Hgb Conc 31.5 g/dL (32-36); Mean Corpuscular Volume 88.3 fL (80-100); Mean Platelet Volume 9.3 fL (7.4-10.4); Platelet Count 162 K/uL (130-400); RDW Coefficient of Variation 15.3 % (11.5-14.5); RDW Standard Deviation 49.6 fL (36.4-46.3); Red Blood Count 2.73 M/uL (4.7-6.1); White Blood Count 6.57 K/uL (4.8-10.8)
[2021-03-06 05:05] LABS: BUN Creatinine Ratio 13.6 (10-20); Calcium 8.1 mg/dl (8.5-10.1); Creatinine Clr Calc Pharmacy 29.3 ml/min; Est GFR (African American) 25.8; Est GFR (Non-African American) 22.3; Potassium 4.2 mmol/L (3.5-5.1)
[2021-03-06] MEDS ORDERED: INSULIN ASPART 100 UNITS/ML 3 ML PEN SC SCH (06:00)
[2021-03-06] MEDS: FAMOTIDINE 20 MG TAB PO SCH ×2 (08:52→21:14)
[2021-03-06] MEDS: AMIODARONE 200 MG TAB PO SCH ×2 (08:52→17:35)
[2021-03-06] MEDS: SUCRALFATE 1 GM/10 ML UDC PO SCH ×4 (08:52→21:14)
[2021-03-06] MEDS: METOPROLOL TARTRATE 25 MG TAB PO SCH ×2 (08:53→21:14)
[2021-03-06] MEDS: INSULIN ASPART 100 UNITS/ML 3 ML PEN SC SCH ×4 (08:54→21:15)
[2021-03-06] MEDS: INSULIN GLARGINE SOLOSTAR 100 UNITS/ML 3 ML PEN SC SCH ×2 (08:54→21:14)
[2021-03-06] MEDS ORDERED: GADOXETATE DISODIUM IV ONE (20:29)
[2021-03-07] MEDS: INSULIN GLARGINE SOLOSTAR 100 UNITS/ML 3 ML PEN SC SCH ×2 (09:22→21:40)
--- NOTE | 2021-03-07 09:22 | Magnetic Resonance Report ---
MRI OF THE ABDOMEN COMBO; MRCP CLINICAL HISTORY: Liver lesions. COMPARISON STUDY: Abdominal CT dated 02/27/2021 and 03/08/2019. Abdominal MRI dated 02/28/2021. TECHNIQUE: MRI of the abdomen is performed transverse T1 and T2-weighted sequences in the axial and c oronal planes. Contrast enhanced sequences were acquired following the IV administration of 10 cc of view of Eovist. Subtraction imaging and diffusion-weighted imaging were utilized. High-resolution MR CP images were obtained. 3-D reformats are created and assessed. FINDINGS: Lower chest: No pleural effusion is identified. The heart is normal in size. Liver: The liver is normal in size, contour, and signal intensity. No intrahepatic biliary ductal dil atation is seen. The hepatic veins and portal veins are patent. There are scattered hepatic cysts whi ch measure up to 5.9 cm. There is a 1.9 cm T1 hypointense T2 hyperintense lesion in hepatic segment V seen on axial fiesta image #14. This was not present on CT scans from 2019 and shows patchy postcont rast enhancement. This does not retain Eovist on the delayed sequences and appears to show restricted diffusion. There is an additional similar-appearing 1.5 cm enhancing lesion identified in the caudat e best seen on fiesta image #14. Additional 0.7 cm lesion is seen in the dome of the liver in segment VII on coronal fiesta image #16. This was not well assessed on the remaining sequences, but is martha rning based on the CT findings. Gallbladder: Biliary sludge is suspected. Small calcified gallstones were much better seen by CT. The gallbladder is largely decompressed and otherwise normal in appearance. There is no intra or extrahe patic biliary ductal dilatation. The common bile duct measures up to 5 mm. There are no intraluminal filling defects to suggest choledocholithiasis. The pancreatic duct is normal in caliber. Spleen: Normal in size and signal intensity. Pancreas: Unremarkable. Adrenal glands: Unremarkable. Kidneys: The kidneys are atrophic and without hydronephrosis. The kidneys enhance and excrete symmetr ically. Abdominal aorta: Normal in course and caliber. Bowel: Visualized portions of the small bowel and colon show no evidence of obstruction. Peritoneum: There is no abdominal ascites. Lymphadenopathy: None. Skeletal structures: Visualized skeletal structures times are normal marrow signal intensity. IMPRESSION: 1. There are at least 2 (and likely 3) enhancing hepatic lesions as detailed above. These correspond to the lesions seen by CT on 02/27/2021. These lesions are new from 2020 CT scans and are highly concer enrrique for metastatic disease. 2. Additional hepatic cysts as above. 3. Small calcified gallstones were better assessed by CT. 4. Otherwise normal MRCP. ACT 112: Negative or not required by law. Electronically signed by: Ralf Marie M.D. 03/07/2021 9:21 AM
[2021-03-07] MEDS: INSULIN ASPART 100 UNITS/ML 3 ML PEN SC SCH ×4 (09:23→21:39)
[2021-03-07] MEDS: SUCRALFATE 1 GM/10 ML UDC PO SCH ×4 (09:25→21:39)
[2021-03-07] MEDS: AMIODARONE 200 MG TAB PO SCH ×2 (09:25→17:33)
[2021-03-07] MEDS: METOPROLOL TARTRATE 25 MG TAB PO SCH ×2 (09:25→21:39)
[2021-03-07] MEDS: FAMOTIDINE 20 MG TAB PO SCH ×2 (09:26→21:39)
[2021-03-07 12:51] LABS: Hematocrit (blood only) 25.9 % (42-52); Hemoglobin 8.3 g/dL (14.0-18.0); Mean Corpuscular Hemoglobin 28.4 pg (25-34); Mean Corpuscular Volume 88.7 fL (80-100); Mean Platelet Volume 9.2 fL (7.4-10.4); Platelet Count 175 K/uL (130-400); RDW Standard Deviation 48.8 fL (36.4-46.3); Red Blood Count 2.92 M/uL (4.7-6.1); White Blood Count 7.72 K/uL (4.8-10.8)
[2021-03-07 13:07] LABS: Albumin Level 3.4 gm/dl (3.4-5.0); BUN Creatinine Ratio 15.2 (10-20); Calcium 8.3 mg/dl (8.5-10.1); Creatinine Clr Calc Pharmacy 34.9 ml/min; Est GFR (African American) 31.9; Est GFR (Non-African American) 27.5; Potassium 4.4 mmol/L (3.5-5.1)
[2021-03-07 13:10] LABS: Albumin Globulin Ratio 1.1 (0.9-2); Bilirubin,Total 0.3 mg/dl (0.2-1); Globulin 3.2 gm/dl (2.5-4.0); Total Protein 6.6 gm/dl (6.4-8.2)
--- NOTE | 2021-03-07 23:46 | Hospitalist Progress Note ---
Date of Service March 07, 2021 Assessment & Plan (1) Liver lesion: unclear cause or etiology, discussion with radiologist by previous hospitalist feels overall the "new" lesions look fairly benign but with concern for etiology may need to repeat MRI with contrast and consider biopsy if able to reach from peripherally MRI liver with contrast on 03/06, 3 liver lesions, suspicious for metastatic disease plan for US guided liver biopsy tomorrow, NPO after midnight (2) Supratherapeutic INR: Patient with supratherapeutic INR at >10 with pap-zdyl-juwoblrohcz bleeding. - Given vitamin k for a total of 10mg IV - Hold Coumadin and Amiodarone- This is maybe causing his elevated levels inr has again decreased and will continue to hold it for biopsy tomorrow (3) GI bleed: Unspecified- no gross bleeding and not in acute distress or evidence of hypoperfusion/shock - Type and screened for 2 units PRBC, now melena suspect just passing old blood from time of elevated INR - CT abdomen and pelvis without acute pathology continue acid suppression but de escalate to pepcid - Transfuse for acute bleeding, symptomatic, or evidence of shock Hb up and down, it is 8.3 today, BP stable (4) Anemia: Hb stable at 8.3 - - Will hold BB and antihypertensives at this time, have metoprolol available for rate control of afib - CT head negative, abdomen and pelvis and mri showing some mass in liver some with cyst appearance some wihthout not given contrast due to renal function although radiology feels maybe should have, will discuss with patient risks of mri with contrast and dye issue (5) Diabetes mellitus type 2 in obese: On insulin therapy - Transition to Lantus and Sliding scale insulin monitor for hypoglycemia (6) HTN (hypertension): Continue to hold hypertensive agents until bleeding source is identified and INR stabilized - Will treat if > 180 - (7) Obesity: Morbidly obese - No acute needs (8) Hyperlipidemia: Lipids tc 102 triglycerides 159 (9) Paroxysmal A-fib: Patient rate controlled. On Coumadin anticoagulation with supratherapeutic INR as above -Hold Coumadin -Monitor INR -restart low dose metoprolol to avoid rebound tachycardia (10) CKD stage 4 due to type 2 diabetes mellitus: Admission and Anticipated Discharge Date Admission Date: February 27, 2021 Subjective MRI with contrast: three liver lesions suspicious for metastatic disease d/w Dr. Mckeon with radiology, will attempt to biopsy with US tomorrow NPO after midnight he says he did have 3 dark stools today, no pain, eating well no dyspnea, no chest pain, no fever, no nausea hb is 8.3, Cr is 2.4, K 4.4 Review of Systems Review of Systems: All systems reviewed & are unremarkable except as noted in Subjective Constitutional: no fever Cardiovascular: no chest pain Gastrointestinal: no abdominal pain, no nausea, no vomiting, no constipation and no diarrhea/loose stools Physical Exam Constitutional: WD/WN, vitals as above + obese Neck: trachea midline, no thyromegaly Respiratory: normal respiratory effort, lungs clear to auscultation Cardiovascular: RRR, no murmur, no edema Gastrointestinal (Abdomen): normal bowel sounds, soft, nontender, no hepatosplenomegaly Musculoskeletal: no cyanosis or clubbing, extremities motor strength 5/5 Skin: no rashes, warm and dry Neurologic: patellar DTR's 2+ bilat, sensation intact and PERRL, EOMI, accommodation nl, no face palsy, no dysarthria Psychiatric: A+Ox3, euthymic affect Lymphatic: no cervical or axillary lymphadenopathy Results & Data Results & Data ([facility]) Vital Signs (Past 12 Hours) Vital Signs Temp Pulse Pulse Resp BP BP Pulse Ox 03/07/21 23:06 36.8 C 61 18 136/75 96 03/07/21 21:37 36.9 C 65 118/69 96 03/07/21 15:26 36.6 C 64 18 130/73 97 Laboratory Results Laboratory Results - last 24 hr 03/07/21 03/07/21 03/07/21 08:07 12:09 12:30 WBC 7.72 RBC 2.92 L Hgb 8.3 L Hct 25.9 L MCV 88.7 MCH 28.4 MCHC 32.0 RDW Std Deviation 48.8 H RDW Coeff of Sharad 15.0 H Plt Count 175 MPV 9.2 Sodium Potassium Chloride Carbon Dioxide Anion Gap BUN Creatinine Est Cr Clr Drug Dosing Est GFR ( Amer) Est GFR (Non-Af Amer) BUN/Creatinine Ratio Glucose POC Glucose 110 H 163 H Calcium Total Bilirubin AST ALT Alkaline Phosphatase Total Protein Albumin Globulin Albumin/Globulin Ratio 03/07/21 03/07/2121 12:30 17:01 20:53 WBC RBC Hgb Hct MCV MCH MCHC RDW Std Deviation RDW Coeff of Sharad Plt Count MPV Sodium 139 Potassium 4.4 Chloride 109 H Carbon Dioxide 24 Anion Gap 6.0 BUN 37 H Creatinine 2.41 H D Est Cr Clr Drug Dosing 34.9 Est GFR ( Amer) 31.9 Est GFR (Non-Af Amer) 27.5 BUN/Creatinine Ratio 15.2 Glucose 141 H POC Glucose 113 H 177 H Calcium 8.3 L Total Bilirubin 0.3 AST 11 L ALT 21 Alkaline Phosphatase 62 Total Protein 6.6 Albumin 3.4 Globulin 3.2 Albumin/Globulin Ratio 1.1 Medications Administered Current Inpatient Medications Acetaminophen (Acetaminophen 325 Mg Tab) 650 mg PO Q4H PRN PRN Reason: Pain or Fever Stop: 03/30/21 00:36 Amiodarone HCl (Amiodarone 200 Mg Tab) 200 mg PO BIDM [facility] Stop: 03/31/21 07:59 Last Admin: 03/07/21 17:33 Dose: 200 mg Documented by: Dextrose (Dextrose 50% 50 Ml Syringe) 25 - 50 ml IV UD PRN; Protocol PRN Reason: Hypoglycemia Protocol Stop: 03/30/21 00:36 Famotidine (Famotidine 20 Mg Tab) 20 mg PO BID [facility] Stop: 03/31/21 13:29 Last Admin: 03/07/21 21:39 Dose: 20 mg Documented by: Glucagon (Glucagon For Inj 1 Mg Vial) 1 mg SQ UD PRN; Protocol PRN Reason: Hypoglycemia Protocol Stop: 03/30/21 00:36 Glucose (Glucose 10 Tabs/Tube) 4 - 8 tabs PO UD PRN; Protocol PRN Reason: Hypoglycemia Protocol Stop: 03/30/21 00:36 Glucose (Glucose 40% Gel 15 Gm Tube) 15 - 30 gm PO UD PRN; Protocol PRN Reason: Hypoglycemia Protocol Stop: 03/30/21 00:36 Hydralazine HCl (Hydralazine Hcl 20 Mg/Ml Vial) 10 mg IV Q8 PRN PRN Reason: Blood Pressure - High Stop: 04/01/21 19:24 Insulin Aspart (Insulin Aspart 100 Units/Ml 3 Ml Pen) 0 units SC ACHS [facility] Stop: 04/05/21 07:29 Last Admin: 04/15/21 21:39 Dose: 2 units Documented by: Insulin Glargine (Insulin Glargine Solostar 100 Units/Ml 3 Ml Pen) 15 units SC BID [facility] Stop: 03/30/21 08:59 Last Admin: 03/07/21 21:40 Dose: 15 units Documented by: Metoprolol Tartrate (Metoprolol Tartrate 1 Mg/Ml Vial) 5 mg IV Q4H PRN PRN Reason: sbp> 185, dbp >95, HR >120 Stop: 03/30/21 17:08 Metoprolol Tartrate (Metoprolol Tartrate 25 Mg Tab) 25 mg PO BID [facility] Stop: 03/30/21 20:59 Last Admin: 03/07/21 21:39 Dose: 25 mg Documented by: Miscellaneous (Carbohydrates For Hypoglycemia ) 15 - 30 gm PO UD PRN PRN Reason: Hypoglycemia Protocol Stop: 03/30/21 00:36 Ondansetron HCl (Ondansetron Inj 2 Mg/Ml 2 Ml Vial) 4 mg IV Q6H PRN PRN Reason: Nausea Stop: 03/30/21 00:36 Sucralfate (Sucralfate 1 Gm/10 Ml Udc) 1 gm PO QID [facility] Stop: 03/30/21 12:59 Last Admin: 03/07/21 21:39 Dose: 1 gm Documented by: PG Care Time/CCT Total # of Minutes Spent Total Time Spent with Patient: Total time spent is greater than 50% in coordination of care (as documented) at patient's floor/unit and/or counseling patient: Coding Level of Care Code 61868 Subseq Hosp Care Lvl 2 Diagnoses Liver lesion K76.9 Supratherapeutic INR R79.1 GI bleed K92.2 GI bleed type/associated pathology: unspecified gastrointestinal hemorrhage type Anemia D64.89 Anemia type: other cause Other causes of anemia: other cause, not classified Diabetes mellitus type 2 in obese E11.69; E66.9 HTN (hypertension) I10 Hypertension type: essential hypertension Obesity E66.01; Z68.41 Obesity type: unspecified obesity type Obesity classification: adult class 3 (BMI >= 40) Serious obesity comorbidity presence: without serious comorbidity Body mass index: BMI 40.0-44.9 Hyperlipidemia E78.5 Hyperlipidemia type: unspecified Paroxysmal A-fib I48.0 CKD stage 4 due to type 2 diabetes mellitus E11.22; N18.4 (1) GI bleed GI bleed type/associated pathology: unspecified gastrointestinal hemorrhage type Qualified Code(s): K92.2 - Gastrointestinal hemorrhage, unspecified (2) Anemia Anemia type: other cause Other causes of anemia: other cause, not classified Qualified Code(s): D64.89 - Other specified anemias (3) HTN (hypertension) Hypertension type: essential hypertension Qualified Code(s): I10 - Essential (primary) hypertension (4) Obesity Obesity type: unspecified obesity type Obesity classification: adult class 3 (BMI >= 40) Serious obesity comorbidity presence: without serious comorbidity Body mass index: BMI 40.0-44.9 Qualified Code(s): E66.01 - Morbid (severe) obesity due to excess calories; Z68.41 - Body mass index [BMI]40.0-44.9, adult (5) Hyperlipidemia Hyperlipidemia type: unspecified Qualified Code(s): E78.5 - Hyperlipidemia, unspecified
[2021-03-08] MEDS ORDERED: Nursing to Pharmacy Communication SCH ×2 (00:45→15:30)
[2021-03-08 06:14] LABS: Hematocrit (blood only) 26.8 % (42-52); Hemoglobin 8.5 g/dL (14.0-18.0); Mean Corpuscular Hemoglobin 28.1 pg (25-34); Mean Corpuscular Hgb Conc 31.7 g/dL (32-36); Mean Corpuscular Volume 88.7 fL (80-100); Mean Platelet Volume 9.9 fL (7.4-10.4); Platelet Count 185 K/uL (130-400); RDW Standard Deviation 48.7 fL (36.4-46.3); Red Blood Count 3.02 M/uL (4.7-6.1); White Blood Count 6.26 K/uL (4.8-10.8)
[2021-03-08] MEDS: INSULIN ASPART 100 UNITS/ML 3 ML PEN SC SCH ×4 (06:14→22:05)
[2021-03-08 06:24] LABS: Prothrombin Time 10.3 Seconds (9.0-12.0)
[2021-03-08 07:02] LABS: BUN Creatinine Ratio 14.3 (10-20); Creatinine Clr Calc Pharmacy 30.1 ml/min; Est GFR (African American) 26.6; Potassium 4.1 mmol/L (3.5-5.1)
[2021-03-08] MEDS: FAMOTIDINE 20 MG TAB PO SCH ×2 (09:13→22:20)
[2021-03-08] MEDS: AMIODARONE 200 MG TAB PO SCH ×2 (09:13→17:51)
[2021-03-08] MEDS: METOPROLOL TARTRATE 25 MG TAB PO SCH ×2 (09:13→22:20)
[2021-03-08] MEDS: SUCRALFATE 1 GM/10 ML UDC PO SCH ×4 (09:14→22:20)
[2021-03-08] MEDS: INSULIN GLARGINE SOLOSTAR 100 UNITS/ML 3 ML PEN SC SCH ×2 (09:14→22:30)
--- NOTE | 2021-03-08 15:29 | Ultrasound Report ---
ULTRASOUND GUIDED FINE NEEDLE ASPIRATION AND CORE BIOPSY OF RIGHT HEPATIC LOBE LESION CLINICAL HISTORY: Liver lesions, possible mets COMPARISON STUDY: MRI of the abdomen March 06, 2021. PROCEDURE: The procedure, risks and benefits were discussed with the patient including the risk of bl eeding, infection and injury to adjacent structures. The patient agreed to the procedure and informed written consent was obtained. The procedure was performed by Dr. Randall following a timeout. Sono graphy revealed the 2 cm mixed echogenicity right hepatic lobe lesion which demonstrated enhancement on MRI. This was targeted. Skin was prepped and draped in sterile fashion and local anesthesia was ac hieved with 1% lidocaine. Under direct ultrasound guidance, 2 22-gauge fine needle aspirations were p erformed utilizing Raymond needles. No atypical cells were noted with findings of aspiration. Theref ore, ultrasound guided 18-gauge core biopsy of the lesion was performed. Atypical cells were noted on preliminary pathology. Given 3 biopsies, no further sampling was performed. The patient tolerated th e procedure well and no immediate complications were evident. IMPRESSION: Ultrasound-guided fine needle aspiration and 18-gauge core biopsy of the 2 cm right hepa tic lobe lesion. ACT 112: Negative or not required by law. Electronically signed by: Alek Randall M.D. 03/08/2021 3:28 PM
--- NOTE | 2021-03-08 22:36 | Hospitalist Progress Note ---
Date of Service March 08, 2021 Assessment & Plan (1) Liver lesion: unclear cause or etiology, discussion with radiologist by previous hospitalist feels overall the "new" lesions look fairly benign but with concern for etiology may need to repeat MRI with contrast and consider biopsy if able to reach from peripherally MRI liver with contrast on 03/06, 3 liver lesions, suspicious for metastatic disease US guided liver biopsy on 03/08, core biopsy done, will take a few days for results (2) Supratherapeutic INR: Patient with supratherapeutic INR at >10 with [id number] bleeding. - Given vitamin k for a total of 10mg IV - Hold Coumadin and Amiodarone- This is maybe causing his elevated levels resume Coumadin 24 hours after biopsy (3) GI bleed: Unspecified- no gross bleeding and not in acute distress or evidence of hypoperfusion/shock - Type and screened for 2 units PRBC, suspect just passing old blood from time of elevated INR - CT abdomen and pelvis without acute pathology continue acid suppression with pepcid - Transfuse for acute bleeding, symptomatic, or evidence of shock Hb up and down, it is 8.6 today, BP stable (4) Anemia: Hb stable at 8.6 - - Will hold BB and antihypertensives at this time, have metoprolol available for rate control of afib - CT head negative, abdomen and pelvis and mri showing some mass in liver some w ith cyst appearance some wihthout not given contrast due to renal function although radiology feels maybe should have, will discuss with patient risks of mri with contrast and dye issue (5) Diabetes mellitus type 2 in obese: On insulin therapy - Transition to Lantus and Sliding scale insulin monitor for hypoglycemia (6) HTN (hypertension): Continue to hold hypertensive agents until bleeding source is identified and INR stabilized - Will treat if > 180 - (7) Obesity: Morbidly obese - No acute needs (8) Hyperlipidemia: Lipids tc 102 triglycerides 159 (9) Paroxysmal A-fib: Patient rate controlled. On Coumadin anticoagulation with supratherapeutic INR as above -Hold Coumadin -Monitor INR -restart low dose metoprolol to avoid rebound tachycardia (10) CKD stage 4 due to type 2 diabetes mellitus: monitoring daily, Cr is 2.8 today Admission and Anticipated Discharge Date Admission Date: February 27, [address] Randall he performed US guided liver biopsy today of 2cm lesion two attempts at FNA did not yield tissue, performed core biopsy, sent tissue, initial review shows some atypical cells will take a few days for results he asked to monitor patient for increased pain in RUQ, could bleed a little patient doing well, no pain, no dyspnea Review of Systems Review of Systems: All systems reviewed & are unremarkable except as noted in Subjective Physical Exam Constitutional: WD/WN, vitals as above + obese Neck: trachea midline, no thyromegaly Respiratory: normal respiratory effort, lungs clear to auscultation Cardiovascular: RRR, no murmur, no edema Gastrointestinal (Abdomen): normal bowel sounds, soft, nontender, no hepatosplenomegaly Musculoskeletal: no cyanosis or clubbing, extremities motor strength 5/5 Skin: no rashes, warm and dry Neurologic: patellar DTR's 2+ bilat, sensation intact and PERRL, EOMI, accommodation nl, no face palsy, no dysarthria Psychiatric: A+Ox3, euthymic affect Lymphatic: no cervical or axillary lymphadenopathy Results & Data Results & Data ([facility]) Vital Signs (Past 12 Hours) Vital Signs Temp Pulse Resp BP Pulse Ox 03/08/21 21:14 37.0 C 68 17 126/78 95 03/08/21 16:00 36.8 C 60 18 122/68 98 03/08/21 15:39 36.8 C 55 L 18 139/87 94 03/08/21 15:00 36.8 C 51 L 18 118/67 95 03/08/21 14:29 36.3 C L 56 L 18 111/73 97 Laboratory Results Laboratory Results - last 24 hr 03/08/21 03/08/21 03/08/21 05:56 05:56 05:56 WBC 6.26 RBC 3.02 L Hgb 8.5 L Hct 26.8 L MCV 88.7 MCH 28.1 MCHC 31.7 L RDW Std Deviation 48.7 H RDW Coeff of Sharad 15.0 H Plt Count 185 MPV 9.9 PT 10.3 INR 1.0 Sodium 143 Potassium 4.1 Chloride 111 H Carbon Dioxide 25 Anion Gap 7.0 BUN 40 H Creatinine 2.80 H D Est Cr Clr Drug Dosing 30.1 Est GFR ( Amer) 26.6 Est GFR (Non-Af Amer) 23.0 BUN/Creatinine Ratio 14.3 Glucose 119 H POC Glucose Calcium 8.0 L 03/08/21 03/08/21 03/08/21 06:01 12:09 16:51 WBC RBC Hgb Hct MCV MCH MCHC RDW Std Deviation RDW Coeff of Sharad Plt Count MPV PT INR Sodium Potassium Chloride Carbon Dioxide Anion Gap BUN Creatinine Est Cr Clr Drug Dosing Est GFR ( Amer) Est GFR (Non-Af Amer) BUN/Creatinine Ratio Glucose POC Glucose 122 H 116 H 132 H Calcium 03/08/21 21:12 WBC RBC Hgb Hct MCV MCH MCHC RDW Std Deviation RDW Coeff of Sharad Plt Count MPV PT INR Sodium Potassium Chloride Carbon Dioxide Anion Gap BUN Creatinine Est Cr Clr Drug Dosing Est GFR ( Amer) Est GFR (Non-Af Amer) BUN/Creatinine Ratio Glucose POC Glucose 127 H Calcium Medications Administered Current Inpatient Medications Acetaminophen (Acetaminophen 325 Mg Tab) 650 mg PO Q4H PRN PRN Reason: Pain or Fever Stop: 03/30/21 00:36 Amiodarone HCl (Amiodarone 200 Mg Tab) 200 mg PO BIDM [facility] Stop: 03/31/21 07:59 Last Admin: 03/08/21 17:51 Dose: 200 mg Documented by: Dextrose (Dextrose 50% 50 Ml Syringe) 25 - 50 ml IV UD PRN; Protocol PRN Reason: Hypoglycemia Protocol Stop: 03/30/21 00:36 Famotidine (Famotidine 20 Mg Tab) 20 mg PO BID [facility] Stop: 03/31/21 13:29 Last Admin: 03/08/21 22:20 Dose: 20 mg Documented by: Glucagon (Glucagon For Inj 1 Mg Vial) 1 mg SQ UD PRN; Protocol PRN Reason: Hypoglycemia Protocol Stop: 03/30/21 00:36 Glucose (Glucose 10 Tabs/Tube) 4 - 8 tabs PO UD PRN; Protocol PRN Reason: Hypoglycemia Protocol Stop: 03/30/21 00:36 Glucose (Glucose 40% Gel 15 Gm Tube) 15 - 30 gm PO UD PRN; Protocol PRN Reason: Hypoglycemia Protocol Stop: 03/30/21 00:36 Hydralazine HCl (Hydralazine Hcl 20 Mg/Ml Vial) 10 mg IV Q8 PRN PRN Reason: Blood Pressure - High Stop: 04/01/21 19:24 Insulin Aspart (Insulin Aspart 100 Units/Ml 3 Ml Pen) 0 units SC ACHS [facility] Stop: 04/07/21 05:59 Last Admin: 03/08/21 22:05 Dose: Not Given Documented by: Insulin Glargine (Insulin Glargine Solostar 100 Units/Ml 3 Ml Pen) 15 units SC BID [facility] Stop: 03/30/21 08:59 Last Admin: 03/08/21 22:30 Dose: 15 units Documented by: Metoprolol Tartrate (Metoprolol Tartrate 1 Mg/Ml Vial) 5 mg IV Q4H PRN PRN Reason: sbp> 185, dbp >95, HR >120 Stop: 03/30/21 17:08 Metoprolol Tartrate (Metoprolol Tartrate 25 Mg Tab) 25 mg PO BID [facility] Stop: 03/30/21 20:59 Last Admin: 03/08/21 22:20 Dose: 25 mg Documented by: Miscellaneous (Carbohydrates For Hypoglycemia ) 15 - 30 gm PO UD PRN PRN Reason: Hypoglycemia Protocol Stop: 03/30/21 00:36 Ondansetron HCl (Ondansetron Inj 2 Mg/Ml 2 Ml Vial) 4 mg IV Q6H PRN PRN Reason: Nausea Stop: 03/30/21 00:36 Sucralfate (Sucralfate 1 Gm/10 Ml Udc) 1 gm PO QID [facility] Stop: 03/30/21 12:59 Last Admin: 03/08/21 22:20 Dose: 1 gm Documented by: PG Care Time/CCT Total # of Minutes Spent Total Time Spent with Patient: Total time spent is greater than 50% in coordination of care (as documented) at patient's floor/unit and/or counseling patient: Coding Level of Care Code 39308 Subseq Hosp Care Lvl 2 Diagnoses Liver lesion K76.9 Supratherapeutic INR R79.1 GI bleed K92.2 GI bleed type/associated pathology: unspecified gastrointestinal hemorrhage type Anemia D64.89 Anemia type: other cause Other causes of anemia: other cause, not classified Diabetes mellitus type 2 in obese E11.69; E66.9 HTN (hypertension) I10 Hypertension type: essential hypertension Obesity E66.01; Z68.41 Body mass index: BMI 40.0-44.9 Obesity classification: adult class 3 (BMI >= 40) Obesity type: unspecified obesity type Serious obesity comorbidity presence: without serious comorbidity Hyperlipidemia E78.5 Hyperlipidemia type: unspecified Paroxysmal A-fib I48.0 CKD stage 4 due to type 2 diabetes mellitus E11.22; N18.4 (1) GI bleed GI bleed type/associated pathology: unspecified gastrointestinal hemorrhage type Qualified Code(s): K92.2 - Gastrointestinal hemorrhage, unspecified (2) Anemia Anemia type: other cause Other causes of anemia: other cause, not classified Qualified Code(s): D64.89 - Other specified anemias (3) Hyperlipidemia Hyperlipidemia type: unspecified Qualified Code(s): E78.5 - Hyperlipidemia, unspecified (4) HTN (hypertension) Hypertension type: essential hypertension Qualified Code(s): I10 - Essential (primary) hypertension (5) Obesity Body mass index: BMI 40.0-44.9 Obesity classification: adult class 3 (BMI >= 40) Obesity type: unspecified obesity type Serious obesity comorbidity presence: without serious comorbidity Qualified Code(s): E66.01 - Morbid (severe) obesity due to excess calories; Z68.41 - Body mass index [BMI]40.0- 44.9, adult
[2021-03-09 08:32] LABS: Hematocrit (blood only) 24.6 % (42-52); Hemoglobin 7.9 g/dL (14.0-18.0); Mean Corpuscular Hemoglobin 28.1 pg (25-34); Mean Corpuscular Hgb Conc 32.1 g/dL (32-36); Mean Corpuscular Volume 87.5 fL (80-100); Mean Platelet Volume 9.3 fL (7.4-10.4); Platelet Count 180 K/uL (130-400); RDW Coefficient of Variation 14.9 % (11.5-14.5); Red Blood Count 2.81 M/uL (4.7-6.1); White Blood Count 6.44 K/uL (4.8-10.8)
[2021-03-09] MEDS: INSULIN ASPART 100 UNITS/ML 3 ML PEN SC SCH ×4 (08:54→21:16)
[2021-03-09] MEDS: INSULIN GLARGINE SOLOSTAR 100 UNITS/ML 3 ML PEN SC SCH ×2 (08:54→21:16)
[2021-03-09] MEDS: SUCRALFATE 1 GM/10 ML UDC PO SCH ×4 (08:54→21:15)
[2021-03-09] MEDS: METOPROLOL TARTRATE 25 MG TAB PO SCH ×2 (08:54→21:15)
[2021-03-09] MEDS: AMIODARONE 200 MG TAB PO SCH ×2 (08:56→18:23)
[2021-03-09] MEDS: FAMOTIDINE 20 MG TAB PO SCH ×2 (08:57→21:15)
[2021-03-09 09:13] LABS: BUN Creatinine Ratio 15.6 (10-20); Creatinine Clr Calc Pharmacy 34.1 ml/min; Est GFR (Non-African American) 26.7; Potassium 4.4 mmol/L (3.5-5.1)
--- NOTE | 2021-03-09 22:02 | Hospitalist Progress Note ---
Date of Service March 09, 2021 Assessment & Plan (1) Liver lesion: unclear cause or etiology, discussion with radiologist by previous hospitalist feels overall the "new" lesions look fairly benign but with concern for etiology may need to repeat MRI with contrast and consider biopsy if able to reach from peripherally MRI liver with contrast on 03/06, 3 liver lesions, suspicious for metastatic disease US guided liver biopsy on 03/08, core biopsy done, will take a few days for results medically stable to return to [facility] but they cannot accept back until Thursday (2) Supratherapeutic INR: Patient with supratherapeutic INR at >10 with [id number] bleeding. - Given vitamin k for a total of 10mg IV - Hold Coumadin and Amiodarone- This is maybe causing his elevated levels resume Coumadin 03/10 (3) GI bleed: Unspecified- no gross bleeding and not in acute distress or evidence of hypoperfusion/shock - Type and screened for 2 units PRBC, suspect just passing old blood from time of elevated INR - CT abdomen and pelvis without acute pathology continue acid suppression with pepcid - Transfuse for acute bleeding, symptomatic, or evidence of shock Hb up and down, it is 7.9 today, BP stable, no signs of bleeding (4) Anemia: Hb stable at 7.9 no transfusion needed for 9 days - - Will hold BB and antihypertensives at this time, have metoprolol available for rate control of afib - CT head negative, abdomen and pelvis and mri showing some mass in liver some with cyst appearance some wihthout not given contrast due to renal function although radiology feels maybe should have, will discuss with patient risks of mri with contrast and dye issue (5) Diabetes mellitus type 2 in obese: On insulin therapy - Transition to Lantus and Sliding scale insulin monitor for hypoglycemia (6) HTN (hypertension): Continue to hold hypertensive agents until bleeding source is identified and INR stabilized - Will treat if > 180 - (7) Obesity: Morbidly obese - No acute needs (8) Hyperlipidemia: Lipids tc 102 triglycerides 159 (9) Paroxysmal A-fib: Patient rate controlled. On Coumadin anticoagulation with supratherapeutic INR as above -Hold Coumadin -Monitor INR -restart low dose metoprolol to avoid rebound tachycardia (10) CKD stage 4 due to type 2 diabetes mellitus: monitoring daily, Cr is 2.8 today Admission and Anticipated Discharge Date Admission Date: February 27, 2021 Subjective patient doing well, no pain in RUQ after biopsy, no dyspnea no BM today, no nausea eating well, no fever/chills I called [facility], this weekend they have a [facility] physician covering who is not comfortable accepting patient back they recommended we keep over weekend and call Thursday Review of Systems Review of Systems: All systems reviewed & are unremarkable except as noted in Subjective Physical Exam Constitutional: WD/WN, vitals as above + obese Neck: trachea midline, no thyromegaly Respiratory: normal respiratory effort, lungs clear to auscultation Cardiovascular: RRR, no murmur, no edema Gastrointestinal (Abdomen): normal bowel sounds, soft, nontender, no hepatosplenomegaly Musculoskeletal: no cyanosis or clubbing, extremities motor strength 5/5 Skin: no rashes, warm and dry Neurologic: patellar DTR's 2+ bilat, sensation intact and PERRL, EOMI, accommodation nl, no face palsy, no dysarthria Psychiatric: A+Ox3, euthymic affect Lymphatic: no cervical or axillary lymphadenopathy Results & Data Results & Data ([facility]) Vital Signs (Past 12 Hours) Vital Signs Temp Pulse Resp BP Pulse Ox 03/09/21 17:20 36.7 C 66 18 154/80 H 97 Laboratory Results Laboratory Results - last 24 hr 03/09/21 03/09/21 03/09/21 08:11 08:19 08:19 WBC 6.44 RBC 2.81 L Hgb 7.9 L Hct 24.6 L MCV 87.5 MCH 28.1 MCHC 32.1 RDW Std Deviation 48.0 H RDW Coeff of Sharad 14.9 H Plt Count 180 MPV 9.3 Sodium 141 Potassium 4.4 Chloride 110 H Carbon Dioxide 25 Anion Gap 6.0 BUN 39 H Creatinine 2.47 H D Est Cr Clr Drug Dosing 34.1 Est GFR ( Amer) 31.0 Est GFR (Non-Af Amer) 26.7 BUN/Creatinine Ratio 15.6 Glucose 115 H POC Glucose 130 H Calcium 8.0 L 03/09/21 03/09/21 03/09/21 12:22 17:17 20:48 WBC RBC Hgb Hct MCV MCH MCHC RDW Std Deviation RDW Coeff of Sharad Plt Count MPV Sodium Potassium Chloride Carbon Dioxide Anion Gap BUN Creatinine Est Cr Clr Drug Dosing Est GFR ( Amer) Est GFR (Non-Af Amer) BUN/Creatinine Ratio Glucose POC Glucose 163 H 200 H 97 Calcium Medications Administered Current Inpatient Medications Acetaminophen (Acetaminophen 325 Mg Tab) 650 mg PO Q4H PRN PRN Reason: Pain or Fever Stop: 03/30/21 00:36 Amiodarone HCl (Amiodarone 200 Mg Tab) 200 mg PO BIDM [facility] Stop: 03/31/21 07:59 Last Admin: 03/09/21 18:23 Dose: 200 mg Documented by: Dextrose (Dextrose 50% 50 Ml Syringe) 25 - 50 ml IV UD PRN; Protocol PRN Reason: Hypoglycemia Protocol Stop: 03/30/21 00:36 Famotidine (Famotidine 20 Mg Tab) 20 mg PO BID [facility] Stop: 03/31/21 13:29 Last Admin: 03/09/21 21:15 Dose: 20 mg Documented by: Glucagon (Glucagon For Inj 1 Mg Vial) 1 mg SQ UD PRN; Protocol PRN Reason: Hypoglycemia Protocol Stop: 03/30/21 00:36 Glucose (Glucose 10 Tabs/Tube) 4 - 8 tabs PO UD PRN; Protocol PRN Reason: Hypoglycemia Protocol Stop: 03/30/21 00:36 Glucose (Glucose 40% Gel 15 Gm Tube) 15 - 30 gm PO UD PRN; Protocol PRN Reason: Hypoglycemia Protocol Stop: 03/30/21 00:36 Hydralazine HCl (Hydralazine Hcl 20 Mg/Ml Vial) 10 mg IV Q8 PRN PRN Reason: Blood Pressure - High Stop: 04/01/21 19:24 Insulin Aspart (Insulin Aspart 100 Units/Ml 3 Ml Pen) 0 units SC ACHS [facility] Stop: 04/07/21 05:59 Last Admin: 03/09/21 21:16 Dose: Not Given Documented by: Insulin Glargine (Insulin Glargine Solostar 100 Units/Ml 3 Ml Pen) 15 units SC BID [facility] Stop: 03/30/21 08:59 Last Admin: 03/09/21 21:16 Dose: 15 units Documented by: Metoprolol Tartrate (Metoprolol Tartrate 1 Mg/Ml Vial) 5 mg IV Q4H PRN PRN Reason: sbp> 185, dbp >95, HR >120 Stop: 05/08/21 17:08 Metoprolol Tartrate (Metoprolol Tartrate 25 Mg Tab) 25 mg PO BID [facility] Stop: 03/30/21 20:59 Last Admin: 03/09/21 21:15 Dose: 25 mg Documented by: Miscellaneous (Carbohydrates For Hypoglycemia ) 15 - 30 gm PO UD PRN PRN Reason: Hypoglycemia Protocol Stop: 03/30/21 00:36 Ondansetron HCl (Ondansetron Inj 2 Mg/Ml 2 Ml Vial) 4 mg IV Q6H PRN PRN Reason: Nausea Stop: 03/30/21 00:36 Sucralfate (Sucralfate 1 Gm/10 Ml Udc) 1 gm PO QID [facility] Stop: 03/30/21 12:59 Last Admin: 03/09/21 21:15 Dose: 1 gm Documented by: PG Care Time/CCT Total # of Minutes Spent Total Time Spent with Patient: Total time spent is greater than 50% in coordination of care (as documented) at patient's floor/unit and/or counseling patient: Coding Level of Care Code 46669 Subseq Hosp Care Lvl 2 Diagnoses Liver lesion K76.9 Supratherapeutic INR R79.1 GI bleed K92.2 GI bleed type/associated pathology: unspecified gastrointestinal hemorrhag e type Anemia D64.89 Anemia type: other cause Other causes of anemia: other cause, not classified Diabetes mellitus type 2 in obese E11.69; E66.9 HTN (hypertension) I10 Hypertension type: essential hypertension Obesity E66.01; Z68.41 Body mass index: BMI 40.0-44.9 Obesity classification: adult class 3 (BMI >= 40) Obesity type: unspecified obesity type Serious obesity comorbidity presence: without serious comorbidity Hyperlipidemia E78.5 Hyperlipidemia type: unspecified Paroxysmal A-fib I48.0 CKD stage 4 due to type 2 diabetes mellitus E11.22; N18.4 (1) GI bleed GI bleed type/associated pathology: unspecified gastrointestinal hemorrhage type Qualified Code(s): K92.2 - Gastrointestinal hemorrhage, unspecified (2) Anemia Anemia type: other cause Other causes of anemia: other cause, not classified Qualified Code(s): D64.89 - Other specified anemias (3) Hyperlipidemia Hyperlipidemia type: unspecified Qualified Code(s): E78.5 - Hyperlipidemia, unspecified (4) HTN (hypertension) Hypertension type: essential hypertension Qualified Code(s): I10 - Essential (primary) hypertension (5) Obesity Body mass index: BMI 40.0-44.9 Obesity classification: adult class 3 (BMI >= 40) Obesity type: unspecified obesity type Serious obesity comorbidity presence: without serious comorbidity Qualified Code(s): E66.01 - Morbid (severe) obesity due to excess calories; Z68.41 - Body mass index [BMI]40.0- 44.9, adult
[2021-03-10] MEDS: FAMOTIDINE 20 MG TAB PO SCH ×2 (09:07→21:37)
[2021-03-10] MEDS: AMIODARONE 200 MG TAB PO SCH ×2 (09:07→17:53)
[2021-03-10] MEDS: SUCRALFATE 1 GM/10 ML UDC PO SCH ×4 (09:07→21:38)
[2021-03-10] MEDS: INSULIN ASPART 100 UNITS/ML 3 ML PEN SC SCH ×4 (09:07→21:41)
[2021-03-10] MEDS: METOPROLOL TARTRATE 25 MG TAB PO SCH ×2 (09:07→21:37)
[2021-03-10] MEDS: INSULIN GLARGINE SOLOSTAR 100 UNITS/ML 3 ML PEN SC SCH ×2 (09:08→21:40)
[2021-03-10] MEDS ORDERED: WARFARIN SOD 10 MG TAB PO ONE (16:08)
--- NOTE | 2021-03-10 16:08 | Hospitalist Progress Note ---
Date of Service March 10, 2021 Assessment & Plan (1) Liver lesion: unclear cause or etiology, discussion with radiologist by previous hospitalist feels overall the "new" lesions look fairly benign but with concern for etiology may need to repeat MRI with contrast and consider biopsy if able to reach from peripherally MRI liver with contrast on 03/06, 3 liver lesions, suspicious for metastatic disease US guided liver biopsy on 03/08, core biopsy done, will take a few days for results medically stable to return to [facility] but they cannot accept back until Thursday call Thursday morning to speak with [facility] physician (2) Supratherapeutic INR: Patient with supratherapeutic INR at >10 with [id number] bleeding. - Given vitamin k for a total of 10mg IV - Hold Coumadin and Amiodarone- This is maybe causing his elevated levels resume Coumadin 03/10, will give 10mg PO and then 6mg daily starting 03/11 (3) GI bleed: Unspecified- no gross bleeding and not in acute distress or evidence of hypoperfusion/shock - Type and screened for 2 units PRBC, suspect just passing old blood from time of elevated INR - CT abdomen and pelvis without acute pathology continue acid suppression with pepcid - Transfuse for acute bleeding, symptomatic, or evidence of shock Hb up and down, it is 7.9 03/09, BP stable, no signs of bleeding (4) Anemia: Hb stable at 7.9 on 03/09 no transfusion needed for 9 days - - Will hold BB and antihypertensives at this time, have metoprolol available for rate control of afib - CT head negative, abdomen and pelvis and mri showing some mass in liver some with cyst appearance some wihthout not given contrast due to renal function although radiology feels maybe should have, will discuss with patient risks of mri with contrast and dye issue (5) Diabetes mellitus type 2 in obese: On insulin therapy - Transition to Lantus and Sliding scale insulin monitor for hypoglycemia (6) HTN (hypertension): Continue to hold hypertensive agents until bleeding source is identified and INR stabilized - Will treat if > 180 - (7) Obesity: Morbidly obese - No acute needs (8) Hyperlipidemia: Lipids tc 102 triglycerides 159 (9) Paroxysmal A-fib: Patient rate controlled. On Coumadin anticoagulation with supratherapeutic INR as above -Hold Coumadin -Monitor INR -restart low dose metoprolol to avoid rebound tachycardia (10) CKD stage 4 due to type 2 diabetes mellitus: monitoring daily, Cr is 2.4 repeat on 03/11 Admission and Anticipated Discharge Date Admission Date: February 27, 2021 Subjective no new issues waiting to go back to [facility] tomorrow Review of Systems Review of Systems: All systems reviewed & are unremarkable except as noted in Subjective Physical Exam Constitutional: WD/WN, vitals as above + obese Neck: trachea midline, no thyromegaly Respiratory: normal respiratory effort, lungs clear to auscultation Cardiovascular: RRR, no murmur, no edema Gastrointestinal (Abdomen): normal bowel sounds, soft, nontender, no hepatosplenomegaly Musculoskeletal: no cyanosis or clubbing, extremities motor strength 5/5 Skin: no rashes, warm and dry Neurologic: patellar DTR's 2+ bilat, sensation intact and PERRL, EOMI, accommodation nl, no face palsy, no dysarthria Psychiatric: A+Ox3, euthymic affect Lymphatic: no cervical or axillary lymphadenopathy Results & Data Results & Data ([facility]) Vital Signs (Past 12 Hours) Vital Signs Temp Pulse Resp BP Pulse Ox 03/10/21 07:48 37 C 65 18 126/81 96 Laboratory Results Laboratory Results - last 24 hr 03/09/21 03/09/21 03/10/21 17:17 20:48 08:19 POC Glucose 200 H 97 150 H 03/10/21 12:14 POC Glucose 160 H Medications Administered Current Inpatient Medications Acetaminophen (Acetaminophen 325 Mg Tab) 650 mg PO Q4H PRN PRN Reason: Pain or Fever Stop: 03/30/21 00:36 Amiodarone HCl (Amiodarone 200 Mg Tab) 200 mg PO BIDM [facility] Stop: 03/31/21 07:59 Last Admin: 03/10/21 09:07 Dose: 200 mg Documented by: Dextrose (Dextrose 50% 50 Ml Syringe) 25 - 50 ml IV UD PRN; Protocol PRN Reason: Hypoglycemia Protocol Stop: 03/30/21 00:36 Famotidine (Famotidine 20 Mg Tab) 20 mg PO BID [facility] Stop: 03/31/21 13:29 Last Admin: 03/10/21 09:07 Dose: 20 mg Documented by: Glucagon (Glucagon For Inj 1 Mg Vial) 1 mg SQ UD PRN; Protocol PRN Reason: Hypoglycemia Protocol Stop: 03/30/21 00:36 Glucose (Glucose 10 Tabs/Tube) 4 - 8 tabs PO UD PRN; Protocol PRN Reason: Hypoglycemia Protocol Stop: 03/30/21 00:36 Glucose (Glucose 40% Gel 15 Gm Tube) 15 - 30 gm PO UD PRN; Protocol PRN Reason: Hypoglycemia Protocol Stop: 03/30/21 00:36 Hydralazine HCl (Hydralazine Hcl 20 Mg/Ml Vial) 10 mg IV Q8 PRN PRN Reason: Blood Pressure - High Stop: 04/01/21 19:24 Insulin Aspart (Insulin Aspart 100 Units/Ml 3 Ml Pen) 0 units SC ACHS [facility] Stop: 04/07/21 05:59 Last Admin: 03/10/21 12:22 Dose: 10 units Documented by: Insulin Glargine (Insulin Glargine Solostar 100 Units/Ml 3 Ml Pen) 15 units SC BID [facility] Stop: 03/30/21 08:59 Last Admin: 03/10/21 09:08 Dose: 15 units Documented by: Metoprolol Tartrate (Metoprolol Tartrate 1 Mg/Ml Vial) 5 mg IV Q4H PRN PRN Reason: sbp> 185, dbp >95, HR >120 Stop: 03/30/21 17:08 Metoprolol Tartrate (Metoprolol Tartrate 25 Mg Tab) 25 mg PO BID [facility] Stop: 03/30/21 20:59 Last Admin: 03/10/21 09:07 Dose: 25 mg Documented by: Miscellaneous (Carbohydrates For Hypoglycemia ) 15 - 30 gm PO UD PRN PRN Reason: Hypoglycemia Protocol Stop: 03/30/21 00:36 Ondansetron HCl (Ondansetron Inj 2 Mg/Ml 2 Ml Vial) 4 mg IV Q6H PRN PRN Reason: Nausea Stop: 03/30/21 00:36 Sucralfate (Sucralfate 1 Gm/10 Ml Udc) 1 gm PO QID [facility] Stop: 03/30/21 12:59 Last Admin: 03/10/21 12:24 Dose: 1 gm Documented by: PG Care Time/CCT Total # of Minutes Spent Total Time Spent with Patient: Total time spent is greater than 50% in coordination of care (as documented) at patient's floor/unit and/or counseling patient: Coding Level of Care Code 74294 Subseq Hosp Care Lvl 2 Diagnoses Liver lesion K76.9 Supratherapeutic INR R79.1 GI bleed K92.2 GI bleed type/associated pathology: unspecified gastrointestinal hemorrhage type Anemia D64.89 Anemia type: other cause Other causes of anemia: other cause, not classified Diabetes mellitus type 2 in obese E11.69; E66.9 HTN (hypertension) I10 Hypertension type: essential hypertension Obesity E66.01; Z68.41 Obesity type: unspecified obesity type Obesity classification: adult class 3 (BMI >= 40) Serious obesity comorbidity presence: without serious comorbidity Body mass index: BMI 40.0-44.9 Hyperlipidemia E78.5 Hyperlipidemia type: unspecified Paroxysmal A-fib I48.0 CKD stage 4 due to type 2 diabetes mellitus E11.22; N18.4 (1) GI bleed GI bleed type/associated pathology: unspecified gastrointestinal hemorrhage type Qualified Code(s): K92.2 - Gastrointestinal hemorrhage, unspecified (2) Anemia Anemia type: other cause Other causes of anemia: other cause, not classified Qualified Code(s): D64.89 - Other specified anemias (3) HTN (hypertension) Hypertension type: essential hypertension Qualified Code(s): I10 - Essential (primary) hypertension (4) Obesity Obesity type: unspecified obesity type Obesity classification: adult class 3 (BMI >= 40) Serious obesity comorbidity presence: without serious comorbidity Body mass index: BMI 40.0-44.9 Qualified Code(s): E66.01 - Morbid (severe) obesity due to excess calories; Z68.41 - Body mass index [BMI]40.0-44.9, adult (5) Hyperlipidemia Hyperlipidemia type: unspecified Qualified Code(s): E78.5 - Hyperlipidemia, unspecified
[2021-03-11 06:24] LABS: Hematocrit (blood only) 25.6 % (42-52); Hemoglobin 8.1 g/dL (14.0-18.0); Mean Corpuscular Hemoglobin 27.9 pg (25-34); Mean Corpuscular Hgb Conc 31.6 g/dL (32-36); Mean Corpuscular Volume 88.3 fL (80-100); Mean Platelet Volume 9.4 fL (7.4-10.4); Platelet Count 197 K/uL (130-400); RDW Coefficient of Variation 14.7 % (11.5-14.5); RDW Standard Deviation 47.3 fL (36.4-46.3); White Blood Count 6.67 K/uL (4.8-10.8)
[2021-03-11 07:01] LABS: BUN Creatinine Ratio 15.7 (10-20); Calcium 8.2 mg/dl (8.5-10.1); Creatinine Clr Calc Pharmacy 30.8 ml/min; Est GFR (African American) 27.4; Est GFR (Non-African American) 23.7; Potassium 4.3 mmol/L (3.5-5.1)
--- NOTE | 2021-03-11 09:05 | Hospitalist Progress Note ---
Date of Service March 11, 2021 Assessment & Plan Admission and Anticipated Discharge Date Admission Date: February 27, 2021 Results & Data Results & Data ([facility]) Vital Signs (Past 12 Hours) Vital Signs Temp Pulse Resp BP Pulse Ox 03/11/21 07:31 36.6 C 59 L 18 150/87 H 95 03/10/21 23:34 36.6 C 64 18 133/76 96 Laboratory Results 03/11/21 03/11/21 03/11/21 Range/Units 08:14 05:49 05:49 WBC (4.8-10.8) K/uL RBC (4.7-6.1) M/uL Hgb (14.0-18.0) g/dL Hct (42-52) % MCV (80-100) fL MCH (25-34) pg MCHC (32-36) g/dL RDW Std Deviation (36.4-46.3) fL RDW Coeff of Sharad (11.5-14.5) % Plt Count (130-400) K/uL MPV (7.4-10.4) fL PT 10.0 (9.0-12.0) Seconds INR 1.0 (0.9-1.1) Sodium 140 (136-145) mmol/L Potassium 4.3 (3.5-5.1) mmol/L Chloride 109 H (98-107) mmol/L Carbon Dioxide 27 (21-32) mmol/L Anion Gap 4.0 (3-11) BUN 43 H (7-18) mg/dl Creatinine 2.73 H (0.6-1.4) mg/dl Est Cr Clr Drug Dosing 30.8 ml/min Est GFR ( Amer) 27.4 Est GFR (Non-Af Amer) 23.7 BUN/Creatinine Ratio 15.7 (10-20) Glucose 134 H (70-99) mg/dl POC Glucose 150 H (70-99) mg/dl Calcium 8.2 L (8.5-10.1) mg/dl 03/11/21 03/10/21 03/10/21 Range/Units 05:49 20:57 16:57 WBC 6.67 (4.8-10.8) K/uL RBC 2.90 L (4.7-6.1) M/uL Hgb 8.1 L (14.0-18.0) g/dL Hct 25.6 L (42-52) % MCV 88.3 (80-100) fL MCH 27.9 (25-34) pg MCHC 31.6 L (32-36) g/dL RDW Std Deviation 47.3 H (36.4-46.3) fL RDW Coeff of Sharad 14.7 H (11.5-14.5) % Plt Count 197 (130-400) K/uL MPV 9.4 (7.4-10.4) fL PT (9.0-12.0) Seconds INR (0.9-1.1) Sodium (136-145) mmol/L Potassium (3.5-5.1) mmol/L Chloride (98-107) mmol/L Carbon Dioxide (21-32) mmol/L Anion Gap (3-11) BUN (7-18) mg/dl Creatinine (0.6-1.4) mg/dl Est Cr Clr Drug Dosing ml/min Est GFR ( Amer) Est GFR (Non-Af Amer) BUN/Creatinine Ratio (10-20) Glucose (70-99) mg/dl POC Glucose 161 H 166 H (70-99) mg/dl Calcium (8.5-10.1) mg/dl 03/10/21 Range/Units 12:14 WBC (4.8-10.8) K/uL RBC (4.7-6.1) M/uL Hgb (14.0-18.0) g/dL Hct (42-52) % MCV (80-100) fL MCH (25-34) pg MCHC (32-36) g/dL RDW Std Deviation (36.4-46.3) fL RDW Coeff of Sharad (11.5-14.5) % Plt Count (130-400) K/uL MPV (7.4-10.4) fL PT (9.0-12.0) Seconds INR (0.9-1.1) Sodium (136-145) mmol/L Potassium (3.5-5.1) mmol/L Chloride (98-107) mmol/L Carbon Dioxide (21-32) mmol/L Anion Gap (3-11) BUN (7-18) mg/dl Creatinine (0.6-1.4) mg/dl Est Cr Clr Drug Dosing ml/min Est GFR ( Amer) Est GFR (Non-Af Amer) BUN/Creatinine Ratio (10-20) Glucose (70-99) mg/dl POC Glucose 160 H (70-99) mg/dl Calcium (8.5-10.1) mg/dl PG Care Time/CCT Total # of Minutes Spent Total Time Spent with Patient: Total time spent is greater than 50% in coordination of care (as documented) at patient's floor/unit and/or counseling patient: Coding
[2021-03-11] MEDS: METOPROLOL TARTRATE 25 MG TAB PO SCH (09:12)
[2021-03-11] MEDS: AMIODARONE 200 MG TAB PO SCH (09:12)
[2021-03-11] MEDS: INSULIN GLARGINE SOLOSTAR 100 UNITS/ML 3 ML PEN SC SCH (09:13)
[2021-03-11] MEDS: SUCRALFATE 1 GM/10 ML UDC PO SCH ×2 (09:13→12:55)
[2021-03-11] MEDS: FAMOTIDINE 20 MG TAB PO SCH (09:13)
[2021-03-11] MEDS: INSULIN ASPART 100 UNITS/ML 3 ML PEN SC SCH ×2 (09:13→12:54)
--- NOTE | 2021-03-11 11:26 | Discharge Summary ---
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 Patient does not know what Coumadin or Warfarin was, "what's that? I don't know". Patient had his INR checked at the skilled nursing today and was noted to be elevated and was re-checked ~8. It was re-checked in the EMD with INR of 10.7, PT>90, APTT 71.9. The patient is pale and his Hgb is 8.4, he is not a great historian and gets confused with questioning. He denies any change in his abdominal girth, nausea, vomiting, blood in the toilet or stools. Does report that stools were "dark black but then they stopped being like that", approximately a "week or so ago". Patient had a heme positive occult blood test in the EMD. In the ER the patient was type and screened for 2 units PRBC and received 5mg Vitamin K IV. Hospitalist saurabh denise was notified for admission. Admission Exam Per Admitting Provider PHYSICAL EXAM: General: awake, alert, no apparent distress Head: Normocephalic, atraumatic ENT: PERRLA, EOMI, no pharyngeal exudate, mucous membranes moist, conjunctiva pale, no jaundice Neuro: AAO x 3, speech clear and mostly appropriate, strength intact bilaterally 5/5, sensation intact and equal all extremities and dermatomes, no pronator drift Chest: equal rise and fall of the chest, no accessory muscle use, no heaves or thrills, Clear to auscultation, on room air, Cardiac: Regular rate and rhythm, telemetry reviewed- NSR, skin warm dry, cap refill <3 seconds, peripheral pulses +2 no JVD, no murmur, (+) 2 edema to lower extremities GI: NABS x 4 quadrants, soft, nontender to palpation, no rebound, guarding or tenderness, obese rotund abdomen : Spontaneously voiding, no pain, no CVA tenderness, Extremities: Normal inspection, no peripheral edema or erythema, calfs nontender to palpation Psych: Normal mood and affect Skin: no rash or erythema, scar to left inner thigh Principal Diagnosis Supratherapeutic INR, Liver Lesion Discharge Exam Constitutional WD/WN, vitals as above well developed, well nourished and + obese facial hair Eyes + anicteric sclerae and PERRL ENMT mmm Neck trachea midline, no thyromegaly normal visual inspection Respiratory normal respiratory effort, lungs clear to auscultation Auscultation: + diminished lung sounds Cardiovascular RRR, no murmur, no edema Gastrointestinal (Abdomen) normal bowel sounds, soft, nontender, no hepatosplenomegaly Inspection/Auscultation: abdomen normal to inspection Percussion/Palpation: abdomen soft; abdomen nontender Musculoskeletal no cyanosis or clubbing, extremities motor strength 5/5 Head/Neck/Chest: normocephalic Skin no rashes, warm and dry Neurologic patellar DTR's 2+ bilat, sensation intact and PERRL, EOMI, accommodation nl, no face palsy, no dysarthria Psychiatric A+Ox3, euthymic affect Lymphatic no cervical or axillary lymphadenopathy Discharge Data Allergies Allergy/AdvReac Type Severity Reaction Status Date / Time sodium chloride Allergy Unknown Verified 02/27/21 18:34 [From [facility] Nasal] Consultations 02/27/21 21:01 ED Decision to Admit Stat 02/28/21 00:37 Consult Gastroenterology Routine Ordered Studies 02/27/21 21:14 CT abd pelvis wo con Urgent 02/27/21 21:14 CT head/brain wo con Urgent 02/28/21 07:55 US liver Routine 02/28/21 08:57 MR abdomen wo con Routine 03/06/21 04:44 MR abdomen wo/w con Routine 03/08/21 08:00 US biopsy liver Routine 03/08/21 14:52 US FNA w/img 1st lesion Routine Hospital Course (1) Liver lesion: Patient admitted with a supratherapeutic INR greater than 10 checked at the skilled nursing prior to admission. Patient was given vitamin K 10 mg IV for reversal Abdominal imaging with suspicious liver lesion and had to wait for MRI with contrast given his GFR however was done despite GFR less than 30 MRI of the liver with contrast on 03/06 showed 3 liver lesions suspicious for metastatic disease And ultrasound-guided liver biopsy was completed on 03/08 and biopsy pending at time of discharge No further signs and symptoms of bleeding and his hemoglobin remained stable on repeat lab draws Recommend follow-up on liver lesion biopsy with appropriate specialists as neededthis was discussed with skilled nursing provider prior to discharge, Shama Rushing PA-C (2) Supratherapeutic INR: Patient with supratherapeutic INR at >10 with [id number] bleeding. Given Vit K as above Given 10mg coumadin on 03/10 but sent on 4mg daily (previously getting 6mg daily) given supratherapeutic INR on admission likely exacerbated by his amiodarone Recommended repeat INR in 2-3 days at skilled nursing (3) GI bleed: Unspecified- no gross bleeding and not in acute distress or evidence of hypoperfusion/shock Transfused 1 unit of PRBC, suspected just passed old blood from time of elevated INR CT abdomen and pelvis without acute pathology continued acid suppression with pepcid Repeat h/h stable as above 8.1 from 7.9 (low of 7.6 during admission) (4) Anemia: Hb stable at 7.9 on 03/09 --> improved to 8.1 with 1 unit PRBCs transfused See above (5) Diabetes mellitus type 2 in obese: SSI while inpatient Resumed home medications at discharge (6) HTN (hypertension): Continued his metoprolol but instructed to continue to hold his hydrochlorothiazide 25 mg daily, losartan 25 mg daily. Instructed to repeat his labs in the next 2 to 3 days and monitor his blood pressure. Would resume once creatinine back to baseline or blood pressure systolic greater than 180. This was discussed with skilled nursing HELENE prior to discharge (7) Obesity: Morbidly obese (8) Hyperlipidemia: Lipids tc 102 triglycerides 159 (9) Paroxysmal A-fib: Patient rate controlled. On Coumadin anticoagulation with supratherapeutic INR as above INR subtherapeutic at time of discharge at 1.0. He was given 10 mg of Coumadin 03/10 and discharged on a lower dose of Coumadin 4 mg daily with recommendations for repeat INR in the next 2 to 3 days for further adjustments as needed Continued on his metoprolol 25 BID (10) CKD stage 4 due to type 2 diabetes mellitus: monitoring daily, Cr is 2.4-2.7/8 range Cr 2.73 prior to discharge Instructed to continue to hold his HCTZ/Losartan for next 1-2 days as above Repeat BMP in next 1-2 days prior to resuming these medications. Would recommend avoiding HCTZ given CKD IV and would continue with ARB given HTN w DM II Discharged back to skilled nursing. To have f/u Liver Biopsy in the next week. Total Time Total Time Spent Total Time Spent (In Minutes): 70 Discharge Plan Discharge Items [facility] Disposition[facility] Reason For Visit: SUPRATHERAPEUTIC INR Discharge Diagnosis: Supratherapeutic INR Goals: You have been hospitalized for an acute medical problem. During your stay at [facility], we have made an effort to correct the problem that brought you to the hospital while keeping you as comfortable as possible. Medications were used to bring your condition under control and your discharge instructions will include directions for any medications you should take after leaving the hospital. Please make sure you see your Primary Care Provider as part of your follow up plan. Activity: Resume your previous activity Non-emergency contact: Primary Care Provider Call non-emergency contact if: you have any medication questions, your symptoms worsen and your pain is not controlled Follow-up/Referrals: Efrain OVALLES [Primary Care Provider] - Diet: Carb Consistent or DM2 and Heart Healthy Addtl Attending Provider Instructions: You have been hospitalized and found to have an elevated INR which caused bleeding and this was reversed. You were found to have a suspicious lesion on your liver and an MRI and biopsy were completed while you have been in the hospital and results are pending at the time of discharge but will need follow up. Your kidney function remains elevated and you will continue to hold your hydrochlorothiazide and losartan for at least the next 2 days or until Creatinine returns to normal or your blood pressure is elevated. You will be continued on Carafate FOUR TIMES daily and PPI TWICE daily to help with bleeding and this has been continued at discharge. You were restarted on anticoagulation but will have your Coumadin reduced to 4mg daily from 6mg given interactions with your medications that could have caused this elevation on admission. You should have repeat kidney function and INR in 2-3 days at the skilled nursing to ensure they are stable along with a blood count. You will need to notify medical provider MELISSA if you have any increasing bleeding in your urine or stool, or for any other signs of bleeding. If you continue to have seasonal allergy type symptoms, you may want to consider adding daily zyrtec 10mg by mouth. Please return to the emergency department with any chest pain, shortness of breath, or for any other symptoms that are concerning for you. It has been a pleasure being a part of the medical team providing for you while you have been in the hospital. Take care! Pending Studies at Discharge: Yes Studies:: Liver Biopsy Stand-Alone Forms: My [facility] Skilled Items Patient informed of condition?: Yes Discharge Level of Care: Other Communicable Disease: No Discharge Prognosis: Stable Lines: None Urinary Catheter: No Medications and DC Order Prescriptions: New sucralfate 100 mg/mL Suspension 1 g PO QID Qty: 10 RF: 0 famotidine 20 mg Tablet 20 mg PO BID Qty: 60 RF: 0 warfarin 4 mg tablet 4 mg PO DAILY Qty: 30 RF: 0 Continued Novolin 70/30 U-100 Insulin 100 unit/mL (70-30) Suspension 45 unit SUBCUT QAM RF: 0 hydrochlorothiazide 25 mg Tablet 25 mg PO DAILY RF: 0 rosuvastatin 40 mg Tablet 40 mg PO DAILY RF: 0 Novolin 70/30 U-100 Insulin 100 unit/mL (70-30) Suspension 40 unit SUBCUT QPM RF: 0 amiodarone 200 mg Tablet 200 mg PO BID RF: 0 losartan 25 mg Tablet 25 mg PO DAILY RF: 0 metoprolol tartrate 25 mg Tablet 25 mg PO BID RF: 0 aspirin [Aspirin Low Dose] 81 mg Tablet,Delayed Release (Dr/Ec) 81 mg PO DAILY RF: 0 Discontinued warfarin 6 mg Tablet 6 mg PO DAILY RF: 0 Discharge Orders: Discharge Order (Routine); Ordered 03/11/21 Ordered By: Anabela Sanhcez Admission Data Admit Date/Time: 02/27/21 23:03 Attending Provider: Tierra Ace Admit Provider: Massiel Underwood Primary Care Provider: Efrain OVALLES Other Providers: Dago Montes ; Massiel Underwood ; Magno Maravilla ; Saul Loza Other Interventions: Discharge Summary Assessment (RN) Last Done: 03/11/21 13:09 Supervising Physician Co-Signing Physician Notes PA Supervision Note: I personally saw and examined the patient. I verified all nash points and agree with ANTHONY Sanchez with the following exceptions and/or additions: S-patient feeling well, no further black stools. Hemoglobin is stable at 8.1 and creatinine is fairly stable at 2.7. He denies any abdominal pain and is eating well. O- Vitals reviewed Gen: AAOx3, NAD, obese HEENT: Anicteric sclerae, EOMI CV: RRR no mgr nl S1S2 Pulm: CTAB no wcr Abd: +BS soft NT ND no masses or hernias Ext: No edema Skin: No rashes, warm/dry Neuro: Full strength throughout A/[id number] male here with supratherapeutic INR, GI bleed, anemia, and incidentally noted to have liver masses which were biopsied Plan outlined as above GI deferred endoscopic work-up until after results of liver biopsy Follow-up on pathology results after discharge Follow INR and CBC closely Coding Level of Care Code D/C Day Management >30 mins Diagnoses Liver lesion K76.9 Supratherapeutic INR R79.1 GI bleed K92.2 GI bleed type/associated pathology: unspecified gastrointestinal hemorrhage type Anemia D64.89 Anemia type: other cause Other causes of anemia: other cause, not classified Diabetes mellitus type 2 in obese E11.69; E66.9 HTN (hypertension) I10 Hypertension type: essential hypertension Obesity E66.01; Z68.41 Body mass index: BMI 40.0-44.9 Obesity classification: adult class 3 (BMI >= 40) Obesity type: unspecified obesity type Serious obesity comorbidity presence: without serious comorbidity Hyperlipidemia E78.5 Hyperlipidemia type: unspecified Paroxysmal A-fib I48.0 CKD stage 4 due to type 2 diabetes mellitus E11.22; N18.4
[2021-03-11] MEDS ORDERED: WARFARIN SOD 6 MG TAB PO SCH (16:00)
--- NOTE | 2021-03-20 16:33 | Coding Query ---
PATHOLOGY To promote full compliance with coding requirements relating to patient care, physician participation is requested in all cases of continuous improvement manager uncertainty. Please assist us with the question(s) below: Please review the Pathology report and please document any relevant diagnosis(es) below: Assuming you're referring to the liver biopsy?? Diagnosis(es): Liver tumor, unknown etiology, nonspecific Thank you KELLY Ventura [facility]
== END 2021-03-11 13:52 | DRG 813 ==
LOC: ED 16:14 → SUATTDRO 23:03 → EDINP 23:03 → 1E 02-28 14:03 → 3W 03-01 13:08

== ENCOUNTER 2021-08-23 15:27 | Inpatient (IN) ==
[2021-08-23] MEDS ORDERED: SODIUM CHLORIDE 0.9% 1000ML 1,000 ML IV SCH (16:15)
--- NOTE | 2021-08-23 16:19 | Emergency Department Note ---
Impression & Plan Anemia Admission ED Provider Note HPI: The patient is a 65-year-old gentleman with history of atrial fibrillation, on Eliquis, IDDM, Who presents to the emergency department today with a chief complaint of low hemoglobin. Patient states that he had his blood checked at the [facility] and his hemoglobin was 5.7. He states that he has been somewhat weak and short of breath recently. States that his stool has been darker than usual for about the past 4 to 5 weeks. Patient denies any nausea or vomiting, denies any chest pain or shortness of breath, on arrival to the ED he is hypotensive at 91/53 but alert, he is in no acute distress, he is not tachycardic, he is sat urating well on room air. ROS: - General: Abnormal outpatient lab work, Generalized weakness *10 point review systems was conducted and is otherwise negative unless stated above *Outpatient medications and allergy history reviewed PE: General: Obese, Alert, NAD HEENT: Normocephalic, atraumatic, trachea midline Eyes: Extraocular eye movement is intact, no scleral erythema Pulmonary: Clear to auscultation bilaterally, no wheezing Cardio: Regular rate and rhythm GI: Abdomen is soft, nontender : No suprapubic tenderness, no flank tenderness to palpation bilaterally MSK: No evidence of trauma or malformation of the extremities, no edema Skin: Erythematous lesion to the lateral aspect of the right ankle without fluctuance on palpation, there is no active drainage Neuro: Alert, no focal deficits Psychiatric: Cooperative Order placed for cardiac monitoring, patient noted to be in Sinus rhythm with regular rate ED Interventions: Packed red blood cells, normal saline bolus EKG: - Time: 1706 - Rate:Sixty-five - Rhythm:Sinus rhythm - Intervals:IA interval 224 ms, QTC 490ms , otherwise within normal limits - ST changes:No ST elevation Medical Decision Making: Patient presented to the emergency department with a low hemoglobin on his outpatient blood work today, he comes from [facility]. He states that he has had some generalized weakness, states he has had dark stools. Patient is noted to be on oral anticoagulation however following a normal saline bolus with blood pressure is 117/54, heart rate is within normal limits, he has not had any rohini bleeding, has not had any hematemesis. At this time I think it is reasonable to hold his oral anticoagulation and at this time I do not think he requires reversal. He was ordered 2 units packed red blood cells and he was consented for transfusion. I suspect that the patient's symptoms and abnormal lab work are secondary to a slow GI bleed. was ordered Protonix in the ED. I discussed the above findings with the patient, he is in agreement for admission. Patient was admitted in stable condition to a telemetry bedfollowing my discussion with the on-call hospitalist, Dr. Wesley. Critical Care Time: 40 minutes - Time spent at the bedside in discussion with the patient, interpretation of diagnostic studies, management of anemia with hemoglobin less than 7.0 requiring packed red blood cell transfusion, discussion with other physicians * Diagnosis: Anemia, occult positive stool * Disposition: Admission Nakul Ashford DO Emergency Medicine Past Med/Surg History Medical History (Updated 08/23/21 @ 19:02 by Nakul Ashford DO) Cellulitis Diabetes Diabetes mellitus type 2 in obese Endocarditis Gangrene HTN (hypertension) Hyperlipidemia Paroxysmal A-fib Sepsis Umbilical hernia Surgical History History of Diann's gangrene With debridement x2 in 2019 at [facility] Family History Other Family history non-contributory Social History Smoking Status: Never smoker Hx Alcohol Use: No Hx Substance Use: No Preferred Language: Icelandic Communication Ability: Effective 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 Beliefs That Will Affect Care: None Current Living Situation: Other [facility] current occupation: Incarcerated Feels Safe at Home: Yes Assistive Devices: None Allergies Allergies Allergy/AdvReac Type Severity Reaction Status Date / Time sodium chloride Allergy Unknown Verified 08/23/21 18:15 [From [place] Nasal] Home Meds Home Medications Medication Instructions Recorded Confirmed insulin human U-100 NPH-regulr 40 unit SUBCUT QPM 08/13/20 08/23/21 70-30 mix 100 unit/mL subcutaneous susp (Novolin 70/30 U-100 Insulin) insulin human U-100 NPH-regulr 45 unit SUBCUT QAM 08/13/20 08/23/21 70-30 mix 100 unit/mL subcutaneous susp (Novolin 70/30 U-100 Insulin) rosuvastatin 40 mg tablet 40 mg PO DAILY 08/13/20 08/23/21 amiodarone 200 mg tablet 200 mg PO BID 02/27/21 08/23/21 aspirin 81 mg tablet,delayed 81 mg PO DAILY 02/27/21 08/23/21 release (Aspirin Low Dose) losartan 25 mg tablet 25 mg PO DAILY 02/27/21 08/23/21 metoprolol tartrate 25 mg tablet 25 mg PO BID 02/27/21 08/23/21 apixaban 5 mg tablet 5 mg PO BID 08/23/21 08/23/21 insulin regular human 100 unit/mL 1 sliding scale dose SUBCUT 08/23/21 08/23/21 injection solution cartridge USEASDIRECTD sulfamethoxazole 800 1 tab PO BID 08/23/21 08/23/21 mg-trimethoprim 160 mg tablet (Bactrim DS) Results & Data (ED) Vital Signs Vital Signs - 24 hr 08/23/21 15:30 08/23/21 16:39 08/23/21 17:09 Temperature 36.7 C Temperature Source Temporal Artery Scan Pulse Rate 88 Pulse Rate [Apical] 66 Pulse Rhythm [Apical] Respiratory Rate 22 18 Respiratory Effort / Characteristics Non-Labored Spontaneous Non-Labored Non-Labored Respiratory Depth Normal Normal Respiratory Pattern Regular Blood Pressure 91/53 L Blood Pressure [Right Arm] Blood Pressure Mean 65 Blood Pressure Mean [Right Arm] Pulse Oximetry 98 94 Oxygen Delivery Method Room Air Room Air Sepsis Recent Fever Within 48 Hours No Sepsis New/Unexplained Change in Mental Status No Sepsis Action Taken by Nursing No Action Required 08/23/21 17:15 08/23/21 17:28 08/23/21 17:30 Temperature 37 C 37 C Temperature Source Oral Oral Pulse Rate Pulse Rate [Apical] 70 70 Pulse Rhythm [Apical] Regular Respiratory Rate 18 Respiratory Effort / Characteristics Non-Labored Respiratory Depth Normal Respiratory Pattern Blood Pressure Blood Pressure [Right Arm] 117/54 L Blood Pressure Mean Blood Pressure Mean [Right Arm] 75 Pulse Oximetry 95 Oxygen Delivery Method Room Air Sepsis Recent Fever Within 48 Hours Sepsis New/Unexplained Change in Mental Status Sepsis Action Taken by Nursing 08/23/21 17:45 08/23/21 18:00 08/23/21 18:15 Temperature Temperature Source Pulse Rate Pulse Rate [Apical] 72 Pulse Rhythm [Apical] Respiratory Rate 18 Respiratory Effort / Characteristics Non-Labored Respiratory Depth Respiratory Pattern Blood Pressure Blood Pressure [Right Arm] Blood Pressure Mean Blood Pressure Mean [Right Arm] Pulse Oximetry 97 Oxygen Delivery Method Room Air Sepsis Recent Fever Within 48 Hours Sepsis New/Unexplained Change in Mental Status Sepsis Action Taken by Nursing 08/23/21 18:28 08/23/21 18:30 Temperature 37 C Temperature Source Oral Pulse Rate 70 Pulse Rate [Apical] Pulse Rhythm [Apical] Respiratory Rate 18 Respiratory Effort / Characteristics Non-Labored Respiratory Depth Respiratory Pattern Blood Pressure 133/69 Blood Pressure [Right Arm] 135/65 Blood Pressure Mean 90 Blood Pressure Mean [Right Arm] 88 Pulse Oximetry 94 Oxygen Delivery Method Room Air Sepsis Recent Fever Within 48 Hours Sepsis New/Unexplained Change in Mental Status Sepsis Action Taken by Nursing Laboratory Data Result diagrams: 08/23/21 16:43 08/23/21 16:43 Lab Results 08/23/21 08/23/21 08/23/21 Range/Units 16:43 16:43 16:43 WBC 9.53 (4.8-10.8) K/uL RBC 1.86 L (4.7-6.1) M/uL Hgb 5.6 L* (14.0-18.0) g/dL Hct 17.7 L* (42-52) % MCV 95.2 (80-100) fL MCH 30.1 (25-34) pg MCHC 31.6 L (32-36) g/dL RDW Std Deviation 69.6 H (36.4-46.3) fL RDW Coeff of Sharad 20.3 H (11.5-14.5) % Plt Count 219 (130-400) K/uL MPV 8.3 (7.4-10.4) fL Immature Gran % (Auto) 0.3 % Neut % (Auto) 82.1 % Lymph % (Auto) 8.8 % [place] % (Auto) 8.5 % Eos % (Auto) 0.2 % Baso % (Auto) 0.1 % Neut # (Auto) 7.82 H (1.4-6.5) K/uL Lymph # (Auto) 0.84 L (1.2-3.4) K/uL [place] # (Auto) 0.81 H (0.11-0.59) K/uL Eos # (Auto) 0.02 (0-0.5) K/uL Baso # (Auto) 0.01 (0-0.2) K/uL Immature Gran # (Auto) 0.03 H (0.00-0.02) K/uL Absolute Nucleated RBC 0.02 H (0-0) K/uL Nucleated RBC % (auto) 0.2 % Polychromasia 1+ Anisocytosis Present PT 11.9 (9.0-12.0) Seconds INR 1.2 H (0.9-1.1) APTT 25.5 (21.0-31.0) Seconds PTT Ratio 1.0 Sodium 140 (136-145) mmol/L Potassium 4.4 (3.5-5.1) mmol/L Chloride 108 H (98-107) mmol/L Carbon Dioxide 26 (21-32) mmol/L Anion Gap 6.0 (3-11) BUN 91 H (7-18) mg/dl Creatinine 5.30 H* (0.6-1.4) mg/dl Est Cr Clr Drug Dosing Not Reportable Est GFR ( Amer) 12.3 ml/min Est GFR (Non-Af Amer) 10.6 ml/min BUN/Creatinine Ratio 17.6 (10-20) Glucose 129 H (70-99) mg/dl Lactate (0.4-2.0) mmol/L Calcium 8.5 (8.5-10.1) mg/dl Magnesium 2.4 (1.8-2.4) mg/dl Total Bilirubin 0.3 (0.2-1) mg/dl AST 34 (15-37) U/L ALT 72 (12-78) U/L Alkaline Phosphatase 60 (45-117) U/L Total Protein 6.8 (6.4-8.2) gm/dl Albumin 2.8 L (3.4-5.0) gm/dl Globulin 4.0 (2.5-4.0) gm/dl Albumin/Globulin Ratio 0.7 L (0.9-2) Procalcitonin (0-0.5) ng/ml Blood Type Antibody Screen Crossmatch 08/23/21 08/23/21 08/23/21 Range/Units 16:43 16:43 16:43 WBC (4.8-10.8) K/uL RBC (4.7-6.1) M/uL Hgb (14.0-18.0) g/dL Hct (42-52) % MCV (80-100) fL MCH (25-34) pg MCHC (32-36) g/dL RDW Std Deviation (36.4-46.3) fL RDW Coeff of Sharad (11.5-14.5) % Plt Count (130-400) K/uL MPV (7.4-10.4) fL Immature Gran % (Auto) % Neut % (Auto) % Lymph % (Auto) % [place] % (Auto) % Eos % (Auto) % Baso % (Auto) % Neut # (Auto) (1.4-6.5) K/uL Lymph # (Auto) (1.2-3.4) K/uL [place] # (Auto) (0.11-0.59) K/uL Eos # (Auto) (0-0.5) K/uL Baso # (Auto) (0-0.2) K/uL Immature Gran # (Auto) (0.00-0.02) K/uL Absolute Nucleated RBC (0-0) K/uL Nucleated RBC % (auto) % Polychromasia Anisocytosis PT (9.0-12.0) Seconds INR (0.9-1.1) APTT (21.0-31.0) Seconds PTT Ratio Sodium (136-145) mmol/L Potassium (3.5-5.1) mmol/L Chloride (98-107) mmol/L Carbon Dioxide (21-32) mmol/L Anion Gap (3-11) BUN (7-18) mg/dl Creatinine (0.6-1.4) mg/dl Est Cr Clr Drug Dosing Est GFR ( Amer) ml/min Est GFR (Non-Af Amer) ml/min BUN/Creatinine Ratio (10-20) Glucose (70-99) mg/dl Lactate 1.7 (0.4-2.0) mmol/L Calcium (8.5-10.1) mg/dl Magnesium (1.8-2.4) mg/dl Total Bilirubin (0.2-1) mg/dl AST (15-37) U/L ALT (12-78) U/L Alkaline Phosphatase (45-117) U/L Total Protein (6.4-8.2) gm/dl Albumin (3.4-5.0) gm/dl Globulin (2.5-4.0) gm/dl Albumin/Globulin Ratio (0.9-2) Procalcitonin 0.12 (0-0.5) ng/ml Blood Type O Negative Antibody Screen NEGATIVE Crossmatch See Detail Imaging Data Radiologist's Impression: Chest X-Ray 08/23/21 16:09 XR chest 1V portable HISTORY: 65 years-old Male SEPSIS acute sepsis COMPARISON: Chest radiograph 08/13/2020 TECHNIQUE: Portable AP view of the chest FINDINGS: Cardiac silhouette is enlarged. No pneumothorax, pleural effusion, airspace consolidation or overt pulmonary edema. No acute fracture. IMPRESSION: Cardiomegaly without acute process. ACT 112: Negative or not required by law. The above report was generated using voice recognition software. It may contain grammatical, syntax or spelling errors. Electronically signed by: Yang Cooper M.D. 08/23/2021 4:51 PM Discharge Plan Visit Data Chief Complaint: Infection, Wound Stated Complaint: HEMOGLOBIN 5.7, ABCESS ON R ANKLE ED Provider: Nakul Ashford Discharge Problem: Anemia Forms Stand Alone Forms: My [facility] [place] [employer] Prescriptions Prescriptions: No Action Novolin 70/30 U-100 Insulin 100 unit/mL (70-30) Suspension 45 unit SUBCUT QAM RF: 0 rosuvastatin 40 mg Tablet 40 mg PO DAILY RF: 0 Novolin 70/30 U-100 Insulin 100 unit/mL (70-30) Suspension 40 unit SUBCUT QPM RF: 0 amiodarone 200 mg Tablet 200 mg PO BID RF: 0 losartan 25 mg Tablet 25 mg PO DAILY RF: 0 metoprolol tartrate 25 mg Tablet 25 mg PO BID RF: 0 aspirin [Aspirin Low Dose] 81 mg Tablet,Delayed Release (Dr/Ec) 81 mg PO DAILY RF: 0 sulfamethoxazole-trimethoprim [Bactrim DS] 800-160 mg Tablet 1 tab PO BID RF: 0 Novolin R Regular U-100 Insuln 100 unit/mL Cartridge 1 sliding scale dose SUBCUT USEASDIRECTD RF: 0 apixaban 5 mg Tablet 5 mg PO BID RF: 0 Referrals Referrals: Efrain OVALLES [Primary Care Provider] -
--- NOTE | 2021-08-23 16:53 | XRay Report ---
XR chest 1V portable HISTORY: 65 years-old Male SEPSIS acute sepsis COMPARISON: Chest radiograph 08/13/2020 TECHNIQUE: Portable AP view of the chest FINDINGS: Cardiac silhouette is enlarged. No pneumothorax, pleural effusion, airspace consolidation or overt pu lmonary edema. No acute fracture. IMPRESSION: Cardiomegaly without acute process. ACT 112: Negative or not required by law. The above report was generated using voice recognition software. It may contain grammatical, syntax o r spelling errors. Electronically signed by: Yang Cooper M.D. 08/23/2021 4:51 PM
[2021-08-23 17:02] LABS: Hematocrit (blood only) 17.7 % (42-52); Hemoglobin 5.6 g/dL (14.0-18.0); Mean Corpuscular Hemoglobin 30.1 pg (25-34); Mean Corpuscular Hgb Conc 31.6 g/dL (32-36); Mean Corpuscular Volume 95.2 fL (80-100); Mean Platelet Volume 8.3 fL (7.4-10.4); Nucleated RBC # (auto) 0.02 K/uL (0-0); Nucleated RBC % (auto) 0.2 %; Platelet Count 219 K/uL (130-400); RDW Coefficient of Variation 20.3 % (11.5-14.5); RDW Standard Deviation 69.6 fL (36.4-46.3); Red Blood Count 1.86 M/uL (4.7-6.1); White Blood Count 9.53 K/uL (4.8-10.8)
[2021-08-23 17:05] LABS: INR 1.2 (0.9-1.1); Partial Thromboplastin Time 25.5 Seconds (21.0-31.0); Prothrombin Time 11.9 Seconds (9.0-12.0)
[2021-08-23] MEDS ORDERED: SODIUM CHLORIDE 0.9% 250 ML IV PRN ×2 (17:06→17:50)
[2021-08-23 17:18] LABS: Anisocytosis Present; Basophils # (auto) 0.01 K/uL (0-0.2); Basophils % (auto) 0.1 %; Eosinophils # (auto) 0.02 K/uL (0-0.5); Eosinophils % (auto) 0.2 %; Immature Granulocytes # (auto) 0.03 K/uL (0.00-0.02); Immature Granulocytes % (auto) 0.3 %; Lymphocytes # (auto) 0.84 K/uL (1.2-3.4); Lymphocytes % (auto) 8.8 %; Monocytes # (auto) 0.81 K/uL (0.11-0.59); Monocytes % (auto) 8.5 %; Neutrophils # (auto) 7.82 K/uL (1.4-6.5); Neutrophils % (auto) 82.1 %; Polychromasia 1+
[2021-08-23 17:27] LABS: Alanine Aminotransferase 72 U/L (12-78); Albumin Globulin Ratio 0.7 (0.9-2); Albumin Level 2.8 gm/dl (3.4-5.0); Alkaline Phosphatase 60 U/L (45-117); Aspartate Aminotransferase 34 U/L (15-37); BUN Creatinine Ratio 17.6 (10-20); Bilirubin,Total 0.3 mg/dl (0.2-1); Blood Urea Nitrogen 91 mg/dl (7-18); Calcium 8.5 mg/dl (8.5-10.1); Carbon Dioxide 26 mmol/L (21-32); Chloride 108 mmol/L (98-107); Est GFR (African American) 12.3 ml/min; Est GFR (Non-African American) 10.6 ml/min; Glucose 129 mg/dl (70-99); Magnesium 2.4 mg/dl (1.8-2.4); Potassium 4.4 mmol/L (3.5-5.1); Sodium 140 mmol/L (136-145); Total Protein 6.8 gm/dl (6.4-8.2)
[2021-08-23] MEDS ORDERED: PANTOPRAZOLE BOLUS/DRIP 1 EA IV STA (18:13)
--- NOTE | 2021-08-23 18:24 | History & Physical Report ---
Date of Service August 23, 2021 Assessment & Plan (1) Blood loss anemia: Plan: Hold Eliquis and aspirin Transfuse 2 units packed RBCs. Repeat H&H Q6H. Transfusion threshold overnight < 7. Suspect relatively chronic given 2 months of melena and hemodynamic stability Pantoprazole 40mg IV BID Consult GI (2) GI bleed: Plan: As above (3) TATE (acute kidney injury): Plan: Hold losartan. NSS 1L bolus given in ER. Continue fluid replacement with packed RBCs as above. Normosol @125ml/hr when not having a blood transfusion. Consult nephrology (4) Cellulitis: Plan: Daptomycin given history of MRSA. Would recommend against Bactrim in the future given his renal function. Consider doxycycline on discharge Wound culture Follow up blood cultures (5) Liver lesion: Plan: Patient is unclear if this was ever followed up Pathology from [facility] in February without obvious features of HCC. Will defer to GI regarding outpatient follow up if further imaging / biopsies warranted. AFP normal in February. (6) Paroxysmal A-fib: Plan: Amiodarone 200mg PO BID Holding anticoagulation due to GI bleed above. (7) HTN (hypertension): Plan: Continue metoprolol with hold parameters Hold losartan (8) Diabetes mellitus type 2 in obese: Plan: Unknown HbA1C and not accurate in setting of GI bleed Reduce insulin while on clear liquids to lantus 20 units BID Novolog: Goal BSG Range: Low 110 mg/dL, High 140 mg/dL Correction Factor: 20 mg/dL/unit Carbohydrate ratio = 6 g/unit BSGs ACHS if eating, q6h if npo (9) Hyperlipidemia: Plan: Hold rosuvastatin while on daptomycin Plan: VTE Prophylaxis - deferred Diet - clear liquids Disposition - admit to med/tele Admission and Anticipated Discharge Date Admission Date: August 23, 2021 History of Present Illness Chief Complaint: Leg wound, Fatigue Primary Care Provider: [facility] Efrain Lalit Crooks is a 65 year old male who presents from [facility] due to right lower extremity wound and outpatient labs with significant anemia (Hgb 5.7). The patient reports he has been having melena for the last 2 months. He reports generalized fatigue but no chest pain, shortness of breath or dizziness. He also has a wound just above his right ankle. He reports this started on Thursday and has been progressively getting worse. He denies any antibiotic use although he does have Bactrim listed on his medication list. Of note he was diagnosed with liver lesions on last admission. He is unable to tell me about any follow up regarding this. He also never had any follow up EGD or colonoscopy after he was diagnosed with acute blood loss anemia here. In the ER fecal occult is positive. Hemoglobin stable at 5.6. He was also noted to have TATE with creatinine 5.3 (baseline 2.5-2.7). He was referred to medicine for admission and ongoing management of anemia. Allergies Allergy/AdvReac Type Severity Reaction Status Date / Time sodium chloride Allergy Unknown Verified 08/23/21 18:15 [From [place] Nasal] Home Medications Medication Instructions Recorded Confirmed Type insulin human U-100 NPH-regulr 40 unit SUBCUT QPM 08/13/20 08/23/21 History 70-30 mix 100 unit/mL subcutaneous susp (Novolin 70/30 U-100 Insulin) insulin human U-100 NPH-regulr 45 unit SUBCUT QAM 08/13/20 08/23/21 History 70-30 mix 100 unit/mL subcutaneous susp (Novolin 70/30 U-100 Insulin) rosuvastatin 40 mg tablet 40 mg PO DAILY 08/13/20 08/23/21 History amiodarone 200 mg tablet 200 mg PO BID 02/27/21 08/23/21 History aspirin 81 mg tablet,delayed 81 mg PO DAILY 02/27/21 08/23/21 History release (Aspirin Low Dose) losartan 25 mg tablet 25 mg PO DAILY 02/27/21 08/23/21 History metoprolol tartrate 25 mg tablet 25 mg PO BID 02/27/21 08/23/21 History apixaban 5 mg tablet 5 mg PO BID 08/23/21 08/23/21 History insulin regular human 100 unit/mL 1 sliding scale dose SUBCUT 08/23/21 08/23/21 History injection solution cartridge USEASDIRECTD sulfamethoxazole 800 1 tab PO BID 08/23/21 08/23/21 History mg-trimethoprim 160 mg tablet (Bactrim DS) Past Med/Surg History Medical History (Updated 08/23/21 @ 23:30 by Deshaun Wesley MD) Cellulitis Diabetes Diabetes mellitus type 2 in obese Endocarditis Gangrene HTN (hypertension) Hyperlipidemia Paroxysmal A-fib Sepsis Umbilical hernia Surgical History History of Diann's gangrene With debridement x2 in 2019 at [facility] Family History Other Family history non-contributory Social History Smoking Status: Unknown if ever smoked Hx Alcohol Use: No Hx Substance Use: No Preferred Language: Kyrgyz Communication Ability: Effective 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 Beliefs That Will Affect Care: None Current Living Situation: Other Current Living Situation Comment: [facility] current occupation: Incarcerated Other Information That Helps Us Care for You: No Feels Safe at Home: Yes Assistive Devices: None Review of Systems Review of Systems: All systems reviewed & are unremarkable except as noted in HPI & below Physical Exam Constitutional: WD/WN, vitals as above Eyes: + anicteric sclerae; normal pupil size ENMT: external ear and nose normal, oropharynx normal Respiratory: normal respiratory effort, lungs clear to auscultation Cardiovascular: Rate/Rhythm: regular rate and regular rhythm Heart Sounds: no murmur Extremities: + pedal edema (1+ ankles b/l equal) Gastrointestinal (Abdomen): Inspection/Auscultation: normal bowel sounds Percussion/Palpation: abdomen soft; abdomen nontender, no guarding and abdomen not rigid Skin: + erythema (RLE from ankle to mid [place]) Neurologic: moves all extremities and awake; not confused Psychiatric: A+Ox3, euthymic affect Results & Data Results & Data ([facility]) Vital Signs (Past 12 Hours) Vital Signs Temp Pulse Pulse Resp BP BP Pulse Ox 08/23/21 17:28 37 C 70 18 117/54 L 95 08/23/21 17:09 66 18 94 08/23/21 15:30 36.7 C 88 22 91/53 L 98 Diagnostic Findings XR chest 1V portable HISTORY: 65 years-old Male SEPSIS acute sepsis COMPARISON: Chest radiograph 08/13/2020 TECHNIQUE: Portable AP view of the chest FINDINGS: Cardiac silhouette is enlarged. No pneumothorax, pleural effusion, airspace consolidation or overt pulmonary edema. No acute fracture. IMPRESSION: Cardiomegaly without acute process. Medications Administered ER Medications Given: NSS 1L bolus ECG Indication: other (anemia) Rhythm: normal sinus Findings: + 1st degree AV block; no acute ischemic change Comparison ECG Date: from (August 13, 2020) Change: the following changes noted (non-specific TW changes no longer present in lateral leads) Code Status & VTE Plan VTE Prophylaxis Plan VTE Prophylaxis will be ordered: No Reason for no VTE drug order: Contraindicated PG Care Time/CCT Total # of Minutes Spent Total Time Spent with Patient: Total time spent is greater than 50% in coordination of care (as documented) at patient's floor/unit and/or counseling patient: Coding Level of Care Code 71550 Initial Inpt Care Lvl 3 Diagnoses Liver lesion K76.9 TATE (acute kidney injury) N17.9 Blood loss anemia D50.0 Cellulitis L03.90 GI bleed K92.2 GI bleed type/associated pathology: unspecified gastrointestinal hemorrhage type Paroxysmal A-fib I48.0 HTN (hypertension) I10 Hypertension type: essential hypertension Diabetes mellitus type 2 in obese E11.69; E66.9 Hyperlipidemia E78.5 Hyperlipidemia type: unspecified (1) GI bleed GI bleed type/associated pathology: unspecified gastrointestinal hemorrhage type Qualified Code(s): K92.2 - Gastrointestinal hemorrhage, unspecified (2) Hyperlipidemia Hyperlipidemia type: unspecified Qualified Code(s): E78.5 - Hyperlipidemia, unspecified (3) HTN (hypertension) Hypertension type: essential hypertension Qualified Code(s): I10 - Essential (primary) hypertension
[2021-08-23] MEDS ORDERED: PANTOprazole 40 MG in DEXTROSE 5% 100 ML IV SCH (18:30)
[2021-08-23] MEDS ORDERED: PANTOprazole 80 MG in DEXTROSE 5% 100 ML IV ONE (18:30)
[2021-08-23] MEDS ORDERED: FAMOTIDINE 20MG/5ML IV PUSH IV STA (19:03)
[2021-08-23 19:20] LABS: Appearance Urine Clear (Clear); Bacteria Urine Automated Negative (Negative); Bilirubin Urine Negative (Negative); Blood Urine 1+ (Negative); Color Urine Yellow; Epithelial Cell Urine Auto 20-30 /lpf (0-5); Glucose Urine UA Negative (Negative); Ketones Urine Negative (Negative); Leukocyte Esterase Urine Negative (Negative); Nitrite Urine Negative (Negative); RBC Urine Automated 0-4 /hpf (0-4); Specific Gravity Urine 1.014 (1.000-1.030); Urobilinogen Urine Negative (Negative); pH Urine 7.5 (4.5-7.5)
[2021-08-23 19:24] LABS: Protein Urine 2+ (Negative)
[2021-08-23] MEDS ORDERED: PANTOprazole 40 MG in SYRINGE 0 ML IV ONE (20:30)
[2021-08-23] MEDS: DAPTOmycin 300 MG in SYRINGE 0 ML IV SCH (20:48)
[2021-08-23] MEDS ORDERED: GLUCOSE 10 TABS/TUBE PO PRN (23:16)
[2021-08-23] MEDS ORDERED: GLUCAGON FOR INJ 1 MG VIAL SQ PRN (23:16)
[2021-08-23] MEDS ORDERED: DEXTROSE 50% 50 ML SYRINGE IV PRN (23:16)
[2021-08-23] MEDS ORDERED: GLUCOSE 40% GEL 15 GM TUBE PO PRN (23:16)
[2021-08-23] MEDS ORDERED: CARBOHYDRATES FOR HYPOGLYCEMIA PO PRN (23:16)
[2021-08-24] MEDS ORDERED: METOPROLOL TARTRATE 25 MG TAB PO SCH
[2021-08-24] MEDS ORDERED: AMIODARONE 200 MG TAB PO SCH
--- NOTE | 2021-08-24 00:17 | Emergency Department Note ---
Impression & Plan Anemia Past Med/Surg History Medical History (Updated 08/23/21 @ 23:30 by Deshaun Wesley MD) Cellulitis Diabetes Diabetes mellitus type 2 in obese Endocarditis Gangrene HTN (hypertension) Hyperlipidemia Paroxysmal A-fib Sepsis Umbilical hernia Surgical History History of Diann's gangrene With debridement x2 in 2019 at [facility] Family History Other Family history non-contributory Social History Smoking Status: Never smoker Hx Alcohol Use: No Hx Substance Use: No Preferred Language: [place] Communication Ability: Effective [employer] Required: No Beliefs That Will Affect Care: None Current Living Situation: Other Current Living Situation Comment: [facility] current occupation: Incarcerated Feels Safe at Home: Yes Assistive Devices: None Allergies Allergies Allergy/AdvReac Type Severity Reaction Status Date / Time sodium chloride Allergy Unknown Verified 08/23/21 18:15 [From [place] Nasal] Home Meds Home Medications Medication Instructions Recorded Confirmed insulin human U-100 NPH-regulr 40 unit SUBCUT QPM 08/13/20 08/23/21 70-30 mix 100 unit/mL subcutaneous susp (Novolin 70/30 U-100 Insulin) insulin human U-100 NPH-regulr 45 unit SUBCUT QAM 08/13/20 08/23/21 70-30 mix 100 unit/mL subcutaneous susp (Novolin 70/30 U-100 Insulin) rosuvastatin 40 mg tablet 40 mg PO DAILY 08/13/20 08/23/21 amiodarone 200 mg tablet 200 mg PO BID 02/27/21 08/23/21 aspirin 81 mg tablet,delayed 81 mg PO DAILY 02/27/21 08/23/21 release (Aspirin Low Dose) losartan 25 mg tablet 25 mg PO DAILY 02/27/21 08/23/21 metoprolol tartrate 25 mg tablet 25 mg PO BID 02/27/21 08/23/21 apixaban 5 mg tablet 5 mg PO BID 08/23/21 08/23/21 insulin regular human 100 unit/mL 1 sliding scale dose SUBCUT 08/23/21 08/23/21 injection solution cartridge USEASDIRECTD sulfamethoxazole 800 1 tab PO BID 08/23/21 08/23/21 mg-trimethoprim 160 mg tablet (Bactrim DS) Results & Data (ED) Vital Signs Vital Signs - 24 hr 08/23/21 15:30 08/23/21 16:39 08/23/21 17:09 Temperature 36.7 C Temperature Source Temporal Artery Scan Pulse Rate 88 Pulse Rate [Apical] 66 Pulse Rate from SpO2 Sensor Pulse Rhythm [Apical] Respiratory Rate 22 18 Respiratory Effort / Characteristics Non-Labored Spontaneous Non-Labored Non-Labored Respiratory Depth Normal Normal Respiratory Pattern Regular Blood Pressure 91/53 L Blood Pressure [Right Arm] Blood Pressure Mean 65 Blood Pressure Mean [Right Arm] Pulse Oximetry 98 94 Oxygen Delivery Method Room Air Room Air Sepsis Recent Fever Within 48 Hours No Sepsis New/Unexplained Change in Mental Status No Sepsis Action Taken by Nursing No Action Required 08/23/21 17:15 08/23/21 17:18 08/23/21 17:28 Temperature 37 C 37 C Temperature Source Oral Oral Pulse Rate 67 Pulse Rate [Apical] 70 Pulse Rate from SpO2 Sensor 67 Pulse Rhythm [Apical] Respiratory Rate 16 18 Respiratory Effort / Characteristics Respiratory Depth Normal Respiratory Pattern Blood Pressure 117/54 L Blood Pressure [Right Arm] 117/54 L Blood Pressure Mean 75 Blood Pressure Mean [Right Arm] 75 Pulse Oximetry 100 95 Oxygen Delivery Method Room Air Sepsis Recent Fever Within 48 Hours Sepsis New/Unexplained Change in Mental Status Sepsis Action Taken by Nursing 08/23/21 17:30 08/23/21 17:45 08/23/21 17:49 Temperature Temperature Source Pulse Rate 70 Pulse Rate [Apical] 70 Pulse Rate from SpO2 Sensor Pulse Rhythm [Apical] Regular Respiratory Rate 15 Respiratory Effort / Characteristics Non-Labored Respiratory Depth Respiratory Pattern Blood Pressure 112/69 Blood Pressure [Right Arm] Blood Pressure Mean 83 Blood Pressure Mean [Right Arm] Pulse Oximetry 97 Oxygen Delivery Method Room Air Sepsis Recent Fever Within 48 Hours Sepsis New/Unexplained Change in Mental Status Sepsis Action Taken by Nursing 08/23/21 18:00 08/23/21 18:15 08/23/21 18:28 Temperature 37 C Temperature Source Oral Pulse Rate 66 68 70 Pulse Rate [Apical] 72 Pulse Rate from SpO2 Sensor Pulse Rhythm [Apical] Respiratory Rate 16 17 18 Respiratory Effort / Characteristics Non-Labored Respiratory Depth Respiratory Pattern Blood Pressure 130/66 133/69 133/69 Blood Pressure [Right Arm] Blood Pressure Mean 87 90 90 Blood Pressure Mean [Right Arm] Pulse Oximetry 94 Oxygen Delivery Method Sepsis Recent Fever Within 48 Hours Sepsis New/Unexplained Change in Mental Status Sepsis Action Taken by Nursing 08/23/21 18:30 08/23/21 18:46 08/23/21 19:00 Temperature Temperature Source Pulse Rate 70 69 Pulse Rate [Apical] 69 Pulse Rate from SpO2 Sensor 68 Pulse Rhythm [Apical] Respiratory Rate 25 H 15 20 Respiratory Effort / Characteristics Non-Labored Respiratory Depth Respiratory Pattern Blood Pressure 135/65 77/62 L Blood Pressure [Right Arm] 135/65 112/75 Blood Pressure Mean 88 67 Blood Pressure Mean [Right Arm] 88 87 Pulse Oximetry 96 96 Oxygen Delivery Method Room Air Room Air Sepsis Recent Fever Within 48 Hours Sepsis New/Unexplained Change in Mental Status Sepsis Action Taken by Nursing 08/23/21 19:01 Temperature Temperature Source Pulse Rate 67 Pulse Rate [Apical] Pulse Rate from SpO2 Sensor Pulse Rhythm [Apical] Respiratory Rate 17 Respiratory Effort / Characteristics Respiratory Depth Respiratory Pattern Blood Pressure 105/59 L Blood Pressure [Right Arm] Blood Pressure Mean 74 Blood Pressure Mean [Right Arm] Pulse Oximetry Oxygen Delivery Method Sepsis Recent Fever Within 48 Hours Sepsis New/Unexplained Change in Mental Status Sepsis Action Taken by Nursing Laboratory Data Result diagrams: 08/23/21 16:43 08/23/21 16:43 Lab Results 08/23/21 08/23/21 08/23/21 Range/Units 16:43 16:43 16:43 WBC 9.53 (4.8-10.8) K/uL RBC 1.86 L (4.7-6.1) M/uL Hgb 5.6 L* (14.0-18.0) g/dL Hct 17.7 L* (42-52) % MCV 95.2 (80-100) fL MCH 30.1 (25-34) pg MCHC 31.6 L (32-36) g/dL RDW Std Deviation 69.6 H (36.4-46.3) fL RDW Coeff of Sharad 20.3 H (11.5-14.5) % Plt Count 219 (130-400) K/uL MPV 8.3 (7.4-10.4) fL Immature Gran % (Auto) 0.3 % Neut % (Auto) 82.1 % Lymph % (Auto) 8.8 % [place] % (Auto) 8.5 % Eos % (Auto) 0.2 % Baso % (Auto) 0.1 % Neut # (Auto) 7.82 H (1.4-6.5) K/uL Lymph # (Auto) 0.84 L (1.2-3.4) K/uL [place] # (Auto) 0.81 H (0.11-0.59) K/uL Eos # (Auto) 0.02 (0-0.5) K/uL Baso # (Auto) 0.01 (0-0.2) K/uL Immature Gran # (Auto) 0.03 H (0.00-0.02) K/uL Absolute Nucleated RBC 0.02 H (0-0) K/uL Nucleated RBC % (auto) 0.2 % Polychromasia 1+ Anisocytosis Present PT 11.9 (9.0-12.0) Seconds INR 1.2 H (0.9-1.1) APTT 25.5 (21.0-31.0) Seconds PTT Ratio 1.0 Sodium 140 (136-145) mmol/L Potassium 4.4 (3.5-5.1) mmol/L Chloride 108 H (98-107) mmol/L Carbon Dioxide 26 (21-32) mmol/L Anion Gap 6.0 (3-11) BUN 91 H (7-18) mg/dl Creatinine 5.30 H* (0.6-1.4) mg/dl Est Cr Clr Drug Dosing Not Reportable Est GFR ( Amer) 12.3 ml/min Est GFR (Non-Af Amer) 10.6 ml/min BUN/Creatinine Ratio 17.6 (10-20) Glucose 129 H (70-99) mg/dl Lactate (0.4-2.0) mmol/L Calcium 8.5 (8.5-10.1) mg/dl Magnesium 2.4 (1.8-2.4) mg/dl Total Bilirubin 0.3 (0.2-1) mg/dl AST 34 (15-37) U/L ALT 72 (12-78) U/L Alkaline Phosphatase 60 (45-117) U/L Total Protein 6.8 (6.4-8.2) gm/dl Albumin 2.8 L (3.4-5.0) gm/dl Globulin 4.0 (2.5-4.0) gm/dl Albumin/Globulin Ratio 0.7 L (0.9-2) Procalcitonin (0-0.5) ng/ml Urine Color Urine Appearance (Clear) Urine pH (4.5-7.5) Ur Specific [place] (1.000-1.030) Urine Protein (Negative) Urine Glucose (UA) (Negative) Urine Ketones (Negative) Urine Blood (Negative) Urine Nitrite (Negative) Urine Bilirubin (Negative) Urine Urobilinogen (Negative) Ur Leukocyte Esterase (Negative) Urine WBC (Auto) (0-5) /hpf Urine RBC (Auto) (0-4) /hpf U Hyaline Cast (Auto) (0-5) /lpf U Epithel Cells (Auto) (0-5) /lpf Urine Bacteria (Auto) (Negative) COVID-19 Eval Order SARS-CoV-2 (PCR) (Negative) Blood Type Antibody Screen Crossmatch 08/23/21 08/23/21 08/23/21 Range/Units 16:43 16:43 16:43 WBC (4.8-10.8) K/uL RBC (4.7-6.1) M/uL Hgb (14.0-18.0) g/dL Hct (42-52) % MCV (80-100) fL MCH (25-34) pg MCHC (32-36) g/dL RDW Std Deviation (36.4-46.3) fL RDW Coeff of Sharad (11.5-14.5) % Plt Count (130-400) K/uL MPV (7.4-10.4) fL Immature Gran % (Auto) % Neut % (Auto) % Lymph % (Auto) % [place] % (Auto) % Eos % (Auto) % Baso % (Auto) % Neut # (Auto) (1.4-6.5) K/uL Lymph # (Auto) (1.2-3.4) K/uL [place] # (Auto) (0.11-0.59) K/uL Eos # (Auto) (0-0.5) K/uL Baso # (Auto) (0-0.2) K/uL Immature Gran # (Auto) (0.00-0.02) K/uL Absolute Nucleated RBC (0-0) K/uL Nucleated RBC % (auto) % Polychromasia Anisocytosis PT (9.0-12.0) Seconds INR (0.9-1.1) APTT (21.0-31.0) Seconds PTT Ratio Sodium (136-145) mmol/L Potassium (3.5-5.1) mmol/L Chloride (98-107) mmol/L Carbon Dioxide (21-32) mmol/L Anion Gap (3-11) BUN (7-18) mg/dl Creatinine (0.6-1.4) mg/dl Est Cr Clr Drug Dosing Est GFR ( Amer) ml/min Est GFR (Non-Af Amer) ml/min BUN/Creatinine Ratio (10-20) Glucose (70-99) mg/dl Lactate 1.7 (0.4-2.0) mmol/L Calcium (8.5-10.1) mg/dl Magnesium (1.8-2.4) mg/dl Total Bilirubin (0.2-1) mg/dl AST (15-37) U/L ALT (12-78) U/L Alkaline Phosphatase (45-117) U/L Total Protein (6.4-8.2) gm/dl Albumin (3.4-5.0) gm/dl Globulin (2.5-4.0) gm/dl Albumin/Globulin Ratio (0.9-2) Procalcitonin 0.12 (0-0.5) ng/ml Urine Color Urine Appearance (Clear) Urine pH (4.5-7.5) Ur Specific [place] (1.000-1.030) Urine Protein (Negative) Urine Glucose (UA) (Negative) Urine Ketones (Negative) Urine Blood (Negative) Urine Nitrite (Negative) Urine Bilirubin (Negative) Urine Urobilinogen (Negative) Ur Leukocyte Esterase (Negative) Urine WBC (Auto) (0-5) /hpf Urine RBC (Auto) (0-4) /hpf U Hyaline Cast (Auto) (0-5) /lpf U Epithel Cells (Auto) (0-5) /lpf Urine Bacteria (Auto) (Negative) COVID-19 Eval Order SARS-CoV-2 (PCR) (Negative) Blood Type O Negative Antibody Screen NEGATIVE Crossmatch See Detail 08/23/21 08/23/21 08/23/21 Range/Units 18:12 18:12 18:59 WBC (4.8-10.8) K/uL RBC (4.7-6.1) M/uL Hgb (14.0-18.0) g/dL Hct (42-52) % MCV (80-100) fL MCH (25-34) pg MCHC (32-36) g/dL RDW Std Deviation (36.4-46.3) fL RDW Coeff of Sharad (11.5-14.5) % Plt Count (130-400) K/uL MPV (7.4-10.4) fL Immature Gran % (Auto) % Neut % (Auto) % Lymph % (Auto) % [place] % (Auto) % Eos % (Auto) % Baso % (Auto) % Neut # (Auto) (1.4-6.5) K/uL Lymph # (Auto) (1.2-3.4) K/uL [place] # (Auto) (0.11-0.59) K/uL Eos # (Auto) (0-0.5) K/uL Baso # (Auto) (0-0.2) K/uL Immature Gran # (Auto) (0.00-0.02) K/uL Absolute Nucleated RBC (0-0) K/uL Nucleated RBC % (auto) % Polychromasia Anisocytosis PT (9.0-12.0) Seconds INR (0.9-1.1) APTT (21.0-31.0) Seconds PTT Ratio Sodium (136-145) mmol/L Potassium (3.5-5.1) mmol/L Chloride (98-107) mmol/L Carbon Dioxide (21-32) mmol/L Anion Gap (3-11) BUN (7-18) mg/dl Creatinine (0.6-1.4) mg/dl Est Cr Clr Drug Dosing Est GFR ( Amer) ml/min Est GFR (Non-Af Amer) ml/min BUN/Creatinine Ratio (10-20) Glucose (70-99) mg/dl Lactate (0.4-2.0) mmol/L Calcium (8.5-10.1) mg/dl Magnesium (1.8-2.4) mg/dl Total Bilirubin (0.2-1) mg/dl AST (15-37) U/L ALT (12-78) U/L Alkaline Phosphatase (45-117) U/L Total Protein (6.4-8.2) gm/dl Albumin (3.4-5.0) gm/dl Globulin (2.5-4.0) gm/dl Albumin/Globulin Ratio (0.9-2) Procalcitonin (0-0.5) ng/ml Urine Color Yellow Urine Appearance Clear (Clear) Urine pH 7.5 (4.5-7.5) Ur Specific [place] 1.014 (1.000-1.030) Urine Protein 2+ H (Negative) Urine Glucose (UA) Negative (Negative) Urine Ketones Negative (Negative) Urine Blood 1+ H (Negative) Urine Nitrite Negative (Negative) Urine Bilirubin Negative (Negative) Urine Urobilinogen Negative (Negative) Ur Leukocyte Esterase Negative (Negative) Urine WBC (Auto) 1-5 (0-5) /hpf Urine RBC (Auto) 0-4 (0-4) /hpf U Hyaline Cast (Auto) 1-5 (0-5) /lpf U Epithel Cells (Auto) 20-30 H (0-5) /lpf Urine Bacteria (Auto) Negative (Negative) COVID-19 Eval Order Covid19 at [facility] SARS-CoV-2 (PCR) NEGATIVE (Negative) Blood Type Antibody Screen Crossmatch Administered Medications Daptomycin 300 mg/ Syringe 6 mls @ 3 mls/min IV Q48H ALEXANDER; Protocol Stop: 08/30/21 20:59 Last Admin: 08/23/21 20:48 Dose: 3 mls/min Documented by: [id number] Discontinued Medications Famotidine (Famotidine 20mg/5ml Iv Push) 20 mg IV ONE STA Stop: 08/23/21 19:04 Last Admin: 08/23/21 19:35 Dose: 20 mg Documented by: [id number] Pantoprazole Sodium 40 mg/ (Syringe) 10 mls @ 5 mls/min IV NOW ONE Stop: 08/23/21 20:31 Last Admin: 08/23/21 20:48 Dose: 5 mls/min Documented by: [id number] Imaging Data Radiologist's Impression: Chest X-Ray 08/23/21 16:09 XR chest 1V portable HISTORY: 65 years-old Male SEPSIS acute sepsis COMPARISON: Chest radiograph 08/13/2020 TECHNIQUE: Portable AP view of the chest FINDINGS: Cardiac silhouette is enlarged. No pneumothorax, pleural effusion, airspace consolidation or overt pulmonary edema. No acute fracture. IMPRESSION: Cardiomegaly without acute process. ACT 112: Negative or not required by law. The above report was generated using voice recognition software. It may contain grammatical, syntax or spelling errors. Electronically signed by: Yang Cooper M.D. 08/23/2021 4:51 PM Discharge Plan Visit Data Chief Complaint: Infection, Wound Stated Complaint: HEMOGLOBIN 5.7, ABCESS ON R ANKLE ED Provider: Nakul Ashford Discharge Problem: Anemia Patient Disposition: Admitted As Inpatient Discharge Instructions Interventions: ED Discharge Assessment Last Done: 08/23/21 21:59
[2021-08-24] MEDS: NORMOSOL-R 1,000 ML IV SCH ×4 (01:00→19:56)
[2021-08-24] MEDS: INSULIN GLARGINE SOLOSTAR 100 UNITS/ML 3 ML PEN SC SCH ×3 (01:24→21:05)
[2021-08-24 01:31] LABS: Hemoglobin 7.1 g/dL (14.0-18.0)
[2021-08-24 08:02] LABS: Hematocrit (blood only) 20.9 % (42-52); Hemoglobin 6.9 g/dL (14.0-18.0); Mean Corpuscular Volume 90.9 fL (80-100); Mean Platelet Volume 9.2 fL (7.4-10.4); Platelet Count 183 K/uL (130-400); RDW Coefficient of Variation 19.8 % (11.5-14.5); White Blood Count 7.73 K/uL (4.8-10.8)
[2021-08-24 08:13] LABS: Anisocytosis Present; Basophilic Stippling 1+; Basophils # (auto) 0.01 K/uL (0-0.2); Basophils % (auto) 0.1 %; Eosinophils % (auto) 1.3 %; Immature Granulocytes # (auto) 0.02 K/uL (0.00-0.02); Immature Granulocytes % (auto) 0.3 %; Lymphocytes % (auto) 16.8 %; Monocytes # (auto) 0.98 K/uL (0.11-0.59); Monocytes % (auto) 12.7 %; Neutrophils # (auto) 5.32 K/uL (1.4-6.5); Neutrophils % (auto) 68.8 %; Polychromasia 1+
[2021-08-24 08:36] LABS: Albumin Globulin Ratio 0.7 (0.9-2); Albumin Level 2.4 gm/dl (3.4-5.0); BUN Creatinine Ratio 17.1 (10-20); Bilirubin,Total 0.3 mg/dl (0.2-1); Calcium 7.9 mg/dl (8.5-10.1); Creatinine Clr Calc Pharmacy 18.1 ml/min; Est GFR (African American) 14.8 ml/min; Est GFR (Non-African American) 12.8 ml/min; Globulin 3.6 gm/dl (2.5-4.0); Potassium 3.9 mmol/L (3.5-5.1)
[2021-08-24] MEDS: PANTOprazole 40 MG in SYRINGE 0 ML IV SCH ×2 (08:46→21:04)
[2021-08-24] MEDS: INSULIN ASPART 100 UNITS/ML 3 ML PEN SC SCH ×4 (08:52→21:04)
[2021-08-24] MEDS ORDERED: LOSARTAN POTASSIUM 25 MG TAB PO SCH (09:00)
[2021-08-24] MEDS ORDERED: ACETAMINOPHEN 325 MG TAB PO ONE (09:38)
[2021-08-24] MEDS ORDERED: diphenhydrAMINE Capsule 25 MG CAP PO ONE (09:38)
[2021-08-24] MEDS ORDERED: SODIUM CHLORIDE 0.9% 250 ML IV PRN (09:38)
--- NOTE | 2021-08-24 09:52 | Hospitalist Progress Note ---
Date of Service August 24, 2021 Assessment & Plan (1) Cellulitis: Plan: - appears to clinically have a small abscess as well (over anterior santiago) - culture obtained upon admission from crack noted in heel but this does not appear to be clinically infected - I was able to squeeze and facilitate some purulent drainage (which I collected and sent for C&S) but there also seems to be a bigger pocket just lateral to the drainage (with communication) - obtain CT (without contrast given A/CKD)--> Mostly looking for abscess only. May need General surgery for I&D - Patient on Dapto which does have adequate Gram + coverage, including MRSA (h/o MRSA). Does NOT have gram - coverage. He is a diabetic. Would have low threshold to add gram negative (rosalba antipseudomonal coverage) if not improving or developing fever/leukocytosis or worsening cellulitic appearance - blood cultures ordered and pending (2) Blood loss anemia: Plan: - suspect UGI bleed: melanotic stools on Eliquis and ASA (A.Fib), positive Hemoccult - ACT and ASA on hold - s/p transfusion 2 units packed cells. - hgb remains low (6.9) but improving. - Remains marginally hypotensive but otherwise is not tachycardic - given additional 2 units of blood (total of 4U) - ? procrit/epogen. Will D/W Nephro. Appreciate recommendations - I do not see that iron studies/retic count/erythropoeitin level done but patie nt already received blood and results will be skewed. 1 dose venofer ordered - would be inclined to continue additional doses of venofer (x3 days) BUT WILL WAIT UNTIL AFTER BLOOD GIVEN as a cross reaction can occur when giving simultaneously (causing hemolysis) - GI consulted. Appreciate recommendations. ? endoscopy when H/H and BP improved - Plan of care discussed with GI who would prefer to facilitate upper and lower endoscopy while in house. Given concern for further dehydration with prep, this will be deferred until Thursday or Thursday of next week when renal function improved. (3) TATE (acute kidney injury): Plan: - Acute on Chronic renal impairment - likely multifactorial - patient limited historian but Bactrim noted to be on medlist (reports believes to have been on this for long time from old wound on back but documentation states was started on Thursday) - WOULD AVOID BACTRIM given h/o CXR (baseline Cr. 2..5-2.7) - In addition, with anemia noted-- may be lacking adequate oxygenation to kidneys only exacerbating the problem - normosol IVF on board. continue this (hold during blood transfusion). Goal is for positive fluid balance - monitor renal function closely - hold nephrotoxic meds (ARB) and renally adjust when appropriate - nephro consulted. appreciate recommendations - currently, patient with NORMAL anion Gap/serum bicarb and no electrolyte abnormalities. He is producing urine. - JESSICA CATHETER for accurate I&O (4) Diabetes mellitus type 2 in obese: Plan: -Patient ordered Lantus and NovoLog. Continue this with close blood sugar monitoring (5) HTN (hypertension): Plan: -Antihypertensive medications currently on hold given marginal hypotension likely related to anemia. (6) Paroxysmal A-fib: Plan: -Currently in a normal sinus rhythm with controlled ventricular rate -Amiodarone has been continued -Eliquis on hold given melanotic stools and hemoglobin of 5.6 upon presentation Admission and Anticipated Discharge Date Admission Date: August 23, 2021 Subjective Patient seen on daily rounds today. He is a 65-year-old male inmate at [facility]. Presented to the hospital yesterday for a hemoglobin of 5.7. Was complaining of progressive shortness of breath X 1 month with melanotic stools. Also had progressive dyspnea on exertion. Takes Eliquis for atrial fibrillation along with aspirin Has had an upper and lower endoscopy greater than 20 years ago showing polyps Hemoccult was positive in the ED Has been typed and crossed/transfused 2 units packed cells. Follow-up H&H 6.9/20.9. Is marginally hypotensive at 99/50. Antihypertensive medicine is on hold. Baseline hemoglobin with review of old records is about 8.3. Patient is on IV Protonix In addition to the low hemoglobin, was found to have a creatinine of 5.30 without acidemia or electrolyte abnormalities. He is avoiding/making urine and is not confused/uremic. He does have CKD with a baseline creatinine of 2.5. Noted to be on Bactrim DS twice daily. He is uncertain when this was started but per documentation, was started on Thursday for cellulitis. Does have a history of MRSA bacteremia February 2021. Is receiving IV fluids (when not being transfused blood) and his creatinine is downtrending but still elevated. Creatinine 4.55 today. Still without electrolyte abnormalities. He is not acidotic. He is not uremic. ARB on hold. Patient also found to have cellulitis of the right lower extremity. Daptomycin ordered given history of MRSA in the past. Thus far, patient has received 2 units of packed cells and reports that he is "feeling significantly better" but still fatigued. Has not been out of bed to determine if he has persistent dyspnea on exertion. Does not feel dizzy or lightheaded despite a blood pressure of 99/50 this morning. Review of Systems Review of Systems: All systems reviewed and are unremarkable except as noted in HPI and below Denies fevers, chills, headache, nasal congestion, sore throat, cough, chest pain, shortness of breath, palpitations, orthopnea, PND, abdominal pain, nausea, vomiting, diarrhea, constipation, dysuria, hematuria, frequency, back pain, joint pain or swelling, easy bruising or bleeding, skin lesions or rashes. Physical Exam Physical Exam: General: Resting comfortably in his hospital bed. He does not appear ill or toxic. NAD. HEENT: Head is AT/NC buccal mucosa is moist and pink Neck: No JVD. Negative hepatojugular reflex Cardiac: Currently in a normal sinus rhythm with controlled ventricular rate Lungs: CTA without W/R/R Abdomen: Normoactive X4. Soft and nontender in all quadrants. Extremities: Right lower extremity with area of erythema on the anterior santiago. There appears to be a loculated fluid collection that is approximately the size of a $0.50 piece. Just lateral to this, there is a vesicular lesion that was squeezed yielding purulent drainage. This appears to communicate with the lateral pocket that I cannot drain superficially. Neuro: A&O X4 cranial nerves II through XII are grossly intact no focal neuro deficits Skin: See above Psych: Appropriate affect pleasant and cooperative Results & Data Results & Data ([facility]) Vital Signs (Past 12 Hours) Vital Signs Temp Pulse Pulse Resp BP BP Pulse Ox 08/24/21 07:39 36.9 C 67 18 100/60 95 08/24/21 07:33 44 L 08/24/21 03:00 36.9 C 71 16 99/51 L 98 08/24/21 00:20 36.9 C 62 16 108/68 99 08/23/21 23:50 65 08/23/21 23:29 36.7 C 64 18 118/77 99 08/23/21 23:16 36.7 C 64 18 118/77 99 08/23/21 22:00 68 15 100 08/23/21 21:45 68 17 114/71 99 Laboratory Results 08/24/21 07:28 08/24/21 07:28 PG Care Time/CCT Total # of Minutes Spent Total Time Spent with Patient: Total time spent is greater than 50% in coordination of care (as documented) at patient's floor/unit and/or counseling patient: C[place] [address] Subseq Hosp Care Lvl 3 Patient Type Established History Comprehensive Exam Comprehensive Medical Decision Making High Complexity Diagnoses Cellulitis L03.90 Blood loss anemia D50.0 TATE (acute kidney injury) N17.9 Diabetes mellitus type 2 in obese E11.69; E66.9 HTN (hypertension) I10 Hypertension type: essential hypertension Paroxysmal A-fib I48.0 (1) HTN (hypertension) Hypertension type: essential hypertension Qualified Code(s): I10 - Essential (primary) hypertension
--- NOTE | 2021-08-24 10:30 | CT Scan Report ---
CT tib/fib RT wo con INDICATION: Pain and swelling, concern for abscess TECHNIQUE: Multidetector row helical CT of the right tibia and fibula was performed without intraveno us contrast. Coronal and sagittal reformations were obtained. Automated dose lowering techniques and/ or adjustment according to patient size were utilized for this examination. Comparison: None available at the time of this dictation. FINDINGS: The osseous structures are without fracture or dislocation. No joint effusion is seen. The joint spa kishore are maintained. Varices are noted in the soft tissues of the calf. There is distal soft tissue st randing but no drainable fluid collection is seen. 3 vessel atherosclerotic disease is noted. IMPRESSION: No evidence of drainable abscess. Soft tissue stranding and skin thickening in the posterior medial s oft tissues may represent cellulitis, correlation with clinical exam is recommended. Diffuse varices. ACT 112: Negative or not required by law. Electronically signed by: Saul Porter M.D. 08/24/2021 10:29 AM
--- NOTE | 2021-08-24 11:28 | Gastrointestinal Consultation ---
Date of Consultation August 24, 2021 Assessment & Plan (1) Blood loss anemia: 65 yo male with multiple medical problems including PAF on chronic anticoagulation with recent note of enhancing liver lesions concerning for a metastatic process in February (bx was non-diagnostic at that time) now with 2 months of melena and hgb of 5.7 on admission (down from 8.1 in February). Hemodynamically stable. Being transfused. - Hold anticoagulants - Agree with transfusion - Full liquids today. - EGD and colonoscopy on Thursday with [facility]. Please order prep tomorrow. - Will need to further address liver lesions pending results of the EGd and colonoscopy. - Mgt of TATE and cellulitis per primary service. (2) TATE (acute kidney injury): (3) Liver lesion: (4) CKD stage 4 due to type 2 diabetes mellitus: (5) Cellulitis: (6) Paroxysmal A-fib: History of Present Illness Reason for Consultation: anemia and melena liver lesions Attending Physician: Remy Maldonado MD History of Present Illness Mr. Crooks is a 65 yo male wiht multiple comorbidities including PAF on ASA and Eloquis, h/o endocarditis approx 9 months ago, CKD (baseline cr approx 2.6), DM who was admitted in February with anemia and found to have enhancing liver lesions on imaging concerning for metastatic disease. No obvious colon lesions on imaging at that time. He underwent an US guided bx of one of the lesions which was non-diagnostic (showed hepatocytes). Endoscopies were deferred at that time. He tells me he has not had any follow up for that since discharged. He was admitted now with pain and redness and swelling of the right anterior santiago and is being treated for cellulitis. He was noted ot have a hgb of 5.7 on admission and describes 2 months of melena. He thinks he had a colonoscopy 20+ years ago. Does not think he has ever had an EGD. Occasional use of NSAIDs. Was never told he had liver disease or cirrhosis in the past. No nausea or vomiting. No abd pain. No known family history of colon cancer. LFts are normal except for mildly elevated AST of 40. Last BM was yesterday and described by patient was tar like. Allergies Allergy/AdvReac Type Severity Reaction Status Date / Time sodium chloride Allergy Unknown Verified 08/23/21 18:15 [From [place] Nasal] Home Medications Medication Instructions Recorded Confirmed Type insulin human U-100 NPH-regulr 40 unit SUBCUT QPM 08/13/20 08/23/21 History 70-30 mix 100 unit/mL subcutaneous susp (Novolin 70/30 U-100 Insulin) insulin human U-100 NPH-regulr 45 unit SUBCUT QAM 08/13/20 08/23/21 History 70-30 mix 100 unit/mL subcutaneous susp (Novolin 70/30 U-100 Insulin) rosuvastatin 40 mg tablet 40 mg PO DAILY 08/13/20 08/23/21 History amiodarone 200 mg tablet 200 mg PO BID 02/27/21 08/23/21 History aspirin 81 mg tablet,delayed 81 mg PO DAILY 02/27/21 08/23/21 History release (Aspirin Low Dose) losartan 25 mg tablet 25 mg PO DAILY 02/27/21 08/23/21 History metoprolol tartrate 25 mg tablet 25 mg PO BID 02/27/21 08/23/21 History apixaban 5 mg tablet 5 mg PO BID 08/23/21 08/23/21 History insulin regular human 100 unit/mL 1 sliding scale dose SUBCUT 08/23/21 08/23/21 History injection solution cartridge USEASDIRECTD sulfamethoxazole 800 1 tab PO BID 08/23/21 08/23/21 History mg-trimethoprim 160 mg tablet (Bactrim DS) Patient History Medical History (Updated 08/23/21 @ 23:30 by Deshaun Wesley MD) Cellulitis Diabetes Diabetes mellitus type 2 in obese Endocarditis Gangrene HTN (hypertension) Hyperlipidemia Paroxysmal A-fib Sepsis Umbilical hernia Surgical History History of Diann's gangrene With debridement x2 in [address] [facility] Family History Other Family history non-contributory Social History Smoking Status: Unknown if ever smoked Hx Alcohol Use: No Hx Substance Use: No Preferred Language: Telugu Communication Ability: Effective Machine Compositor Required: No Beliefs That Will Affect Care: None Current Living Situation: Other Current Living Situation Comment: [facility] current occupation: Incarcerated Other Information That Helps Us Care for You: No Feels Safe at Home: Yes Assistive Devices: None Review of Systems Review of Systems: 12 systems reviewed and negative except as noted Physical Exam Constitutional: WD/WN, vitals as above Respiratory: normal respiratory effort, lungs clear to auscultation Cardiovascular: RRR, no murmur, no edema Gastrointestinal (Abdomen): normal bowel sounds, soft, nontender, no hepatosplenomegaly Results & Data ([facility]) Vital Signs (Past 12 Hours) Vital Signs Temp Pulse Pulse Resp BP BP Pulse Ox 08/24/21 10:38 36.8 C 67 16 122/74 08/24/21 07:39 36.9 C 67 18 100/60 95 08/24/21 07:33 44 L 08/24/21 03:00 36.9 C 71 16 99/51 L 98 08/24/21 00:20 36.9 C 62 16 108/68 99 08/23/21 23:50 65 08/23/21 23:29 36.7 C 64 18 118/77 99
--- NOTE | 2021-08-24 13:23 | Nephrology Consultation ---
Date of Consultation August 24, 2021 Assessment & Plan (1) TATE (acute kidney injury): Non-oliguric. Electrolytes acceptable. Clinical presentation consistent with prerenal and hemodynamically mediated TATE with ATN and recent Bactrim. Creatinine slightly improved. No emergent indication for dialysis at this time. No current renal imaging. Urine microscopy acellular. Medications appropriate for kidney function. Bactrim discontinued. Rosuvastatin held. CK acceptable. Losartan held. Maintain positive fluid balance. Hgb goal >8. Repeat metabolic profile tomorrow AM. (2) CKD stage 4 due to type 2 diabetes mellitus: Creatinine 2.5-2.7 mg/dL during prior admission. UA +protein. Consistent with DKD. (3) Blood loss anemia: Hgb goal >8 in setting of TATE. PRBC transfusion support. (4) Cellulitis: BActrim stopped. Started on Dapto. Monitor CK. History of Present Illness Reason for Consultation: TATE Requesting Physician: Remy Maldonado MD Attending Physician: Remy Maldonado MD History of Present Illness Mr. Lalit Crooks is a 65-year-old male with DMII, hypertension, paroxysmal atrial fibrillation, chronic anticoagulation, history of IE and Diann's gangrene (2019), enhancing liver lesions, and a history of TATE requiring HD in the past. He presented to the ER at [facility] yesterday with profound weakness and after suffering a fall. History notable for melena. Evaluation revealed notable acute blood loss anemia. He has been supported with IVF and PRBC transfusion support. Upper EGD planned by gastroenterology. Overall, he reports improvement with supportive care. Non-oliguric. Mauricio catheter in place. Lalit was admitted to [facility] in February with anemia. He was found to have enhancing liver lesions concerning for metastatic disease. US guided biopsy of one of the lesions which was non-diagnostic, suggestive of hepatic adenoma but could not exclude HCC. Endoscopy evaluation was deferred at that time. He was discharged from the hospital with a serum creatinine of 2.7 mg/dL. UA demonstrating 2+ protein, 1+ blood, no WBC or RBC on microscopy. Albumin 2.4 g/dL. Creatinine 5.3 mg/dL on admission was 4.5 mg/dL this AM. Noted that Bactrim was started on Thursday for cellulitis on the RLE. Allergies Allergy/AdvReac Type Severity Reaction Status Date / Time sodium chloride Allergy Unknown Verified 08/23/21 18:15 [From [place] Nasal] Home Medications Medication Instructions Recorded Confirmed Type insulin human U-100 NPH-regulr 40 unit SUBCUT QPM 08/13/20 08/23/21 History 70-30 mix 100 unit/mL subcutaneous susp (Novolin 70/30 U-100 Insulin) insulin human U-100 NPH-regulr 45 unit SUBCUT QAM 08/13/20 08/23/21 History 70-30 mix 100 unit/mL subcutaneous susp (Novolin 70/30 U-100 Insulin) rosuvastatin 40 mg tablet 40 mg PO DAILY 08/13/20 08/23/21 History amiodarone 200 mg tablet 200 mg PO BID 02/27/21 08/23/21 History aspirin 81 mg tablet,delayed 81 mg PO DAILY 02/27/21 08/23/21 History release (Aspirin Low Dose) losartan 25 mg tablet 25 mg PO DAILY 02/27/21 08/23/21 History metoprolol tartrate 25 mg tablet 25 mg PO BID 02/27/21 08/23/21 History apixaban 5 mg tablet 5 mg PO BID 08/23/21 08/23/21 History insulin regular human 100 unit/mL 1 sliding scale dose SUBCUT 08/23/21 08/23/21 History injection solution cartridge USEASDIRECTD sulfamethoxazole 800 1 tab PO BID 08/23/21 08/23/21 History mg-trimethoprim 160 mg tablet (Bactrim DS) Patient History Medical History (Updated 08/23/21 @ 23:30 by Deshaun Wesley MD) Cellulitis Diabetes Diabetes mellitus type 2 in obese Endocarditis Gangrene HTN (hypertension) Hyperlipidemia Paroxysmal A-fib Sepsis Umbilical hernia Surgical History History of Diann's gangrene With debridement x2 in 2019 at [facility] Family History Other Family history non-contributory Social History Smoking Status: Unknown if ever smoked Hx Alcohol Use: No Hx Substance Use: No Preferred Language: Lithuanian Communication Ability: Effective Family Practice Md Required: No Beliefs That Will Affect Care: None Current Living Situation: Other Current Living Situation Comment: [facility] current occupation: Incarcerated Other Information That Helps Us Care for You: No Feels Safe at Home: Yes Assistive Devices: None Review of Systems Review of Systems: All systems reviewed & are unremarkable except as noted in HPI & below Physical Exam Constitutional: well developed; no acute distress Eyes: no scleral abnormality and no corneal abnormality ENMT: Mouth: no oral mucosal abnormality and oral mucous membranes not dry Neck: normal visual inspection and trachea midline Respiratory: normal respiratory effort Auscultation: lungs clear to auscultation bilaterally Cardiovascular: Rate/Rhythm: regular rate Heart Sounds: normal S1 and normal S2 Extremities: no edema Musculoskeletal: Extremities: no cyanosis and no clubbing Skin: normal turgor, + induration and + subcutaneous nodules (sabaceous abscess on lower right extremity) Neurologic: Motor/Sensory: no tremor and no asterixis Psychiatric: Orientation: alert and oriented x 3 Results & Data ([facility]) Vital Signs (Past 12 Hours) Vital Signs Temp Pulse Pulse Resp BP BP Pulse Ox 08/24/21 12:59 37.0 C 69 14 96/60 L 96 08/24/21 12:04 37.3 C 64 12 111/67 98 08/24/21 10:38 36.8 C 67 16 122/74 08/24/21 07:39 36.9 C 67 18 100/60 95 08/24/21 07:33 44 L 08/24/21 03:00 36.9 C 71 16 99/51 L 98 Laboratory Results Laboratory Results - last 24 hr 08/23/21 08/23/21 08/23/21 16:43 16:43 16:43 WBC 9.53 RBC 1.86 L Hgb 5.6 L* Hct 17.7 L* MCV 95.2 MCH 30.1 MCHC 31.6 L RDW Std Deviation 69.6 H RDW Coeff of Sharad 20.3 H Plt Count 219 MPV 8.3 Immature Gran % (Auto) 0.3 Neut % (Auto) 82.1 Lymph % (Auto) 8.8 [place] % (Auto) 8.5 Eos % (Auto) 0.2 Baso % (Auto) 0.1 Neut # (Auto) 7.82 H Lymph # (Auto) 0.84 L [place] # (Auto) 0.81 H Eos # (Auto) 0.02 Baso # (Auto) 0.01 Immature Gran # (Auto) 0.03 H Absolute Nucleated RBC 0.02 H Nucleated RBC % (auto) 0.2 Polychromasia 1+ Basophilic Stippling Anisocytosis Present PT 11.9 INR 1.2 H APTT 25.5 PTT Ratio 1.0 Sodium 140 Potassium 4.4 Chloride 108 H Carbon Dioxide 26 Anion Gap 6.0 BUN 91 H Creatinine 5.30 H* Est Cr Clr Drug Dosing Not Reportable Est GFR ( Amer) 12.3 Est GFR (Non-Af Amer) 10.6 BUN/Creatinine Ratio 17.6 Glucose 129 H POC Glucose Lactate Calcium 8.5 Magnesium 2.4 Total Bilirubin 0.3 AST 34 ALT 72 Alkaline Phosphatase 60 Total Protein 6.8 Albumin 2.8 L Globulin 4.0 Albumin/Globulin Ratio 0.7 L Procalcitonin Urine Color Urine Appearance Urine pH Ur Specific [place] Urine Protein Urine Glucose (UA) Urine Ketones Urine Blood Urine Nitrite Urine Bilirubin Urine Urobilinogen Ur Leukocyte Esterase Urine WBC (Auto) Urine RBC (Auto) U Hyaline Cast (Auto) U Epithel Cells (Auto) Urine Bacteria (Auto) COVID-19 Eval Order SARS-CoV-2 (PCR) Blood Type Antibody Screen Crossmatch 08/23/21 08/23/21 08/23/21 16:43 16:43 16:43 WBC RBC Hgb Hct MCV MCH MCHC RDW Std Deviation RDW Coeff of Sharad Plt Count MPV Immature Gran % (Auto) Neut % (Auto) Lymph % (Auto) [place] % (Auto) Eos % (Auto) Baso % (Auto) Neut # (Auto) Lymph # (Auto) [place] # (Auto) Eos # (Auto) Baso # (Auto) Immature Gran # (Auto) Absolute Nucleated RBC Nucleated RBC % (auto) Polychromasia Basophilic Stippling Anisocytosis PT INR APTT PTT Ratio Sodium Potassium Chloride Carbon Dioxide Anion Gap BUN Creatinine Est Cr Clr Drug Dosing Est GFR ( Amer) Est GFR (Non-Af Amer) BUN/Creatinine Ratio Glucose POC Glucose Lactate 1.7 Calcium Magnesium Total Bilirubin AST ALT Alkaline Phosphatase Total Protein Albumin Globulin Albumin/Globulin Ratio Procalcitonin 0.12 Urine Color Urine Appearance Urine pH Ur Specific Enterprise Urine Protein Urine Glucose (UA) Urine Ketones Urine Blood Urine Nitrite Urine Bilirubin Urine Urobilinogen Ur Leukocyte Esterase Urine WBC (Auto) Urine RBC (Auto) U Hyaline Cast (Auto) U Epithel Cells (Auto) Urine Bacteria (Auto) COVID-19 Eval Order SARS-CoV-2 (PCR) Blood Type O Negative Antibody Screen NEGATIVE Crossmatch See Detail 08/23/21 08/23/21 08/23/21 18:12 18:12 18:59 WBC RBC Hgb Hct MCV MCH MCHC RDW Std Deviation RDW Coeff of Sharad Plt Count MPV Immature Gran % (Auto) Neut % (Auto) Lymph % (Auto) [place] % (Auto) Eos % (Auto) Baso % (Auto) Neut # (Auto) Lymph # (Auto) [place] # (Auto) Eos # (Auto) Baso # (Auto) Immature Gran # (Auto) Absolute Nucleated RBC Nucleated RBC % (auto) Polychromasia Basophilic Stippling Anisocytosis PT INR APTT PTT Ratio Sodium Potassium Chloride Carbon Dioxide Anion Gap BUN Creatinine Est Cr Clr Drug Dosing Est GFR ( Amer) Est GFR (Non-Af Amer) BUN/Creatinine Ratio Glucose POC Glucose Lactate Calcium Magnesium Total Bilirubin AST ALT Alkaline Phosphatase Total Protein Albumin Globulin Albumin/Globulin Ratio Procalcitonin Urine Color Yellow Urine Appearance Clear Urine pH 7.5 Ur Specific [place] 1.014 Urine Protein 2+ H Urine Glucose (UA) Negative Urine Ketones Negative Urine Blood 1+ H Urine Nitrite Negative Urine Bilirubin Negative Urine Urobilinogen Negative Ur Leukocyte Esterase Negative Urine WBC (Auto) 1-5 Urine RBC (Auto) 0-4 U Hyaline Cast (Auto) 1-5 U Epithel Cells (Auto) 20-30 H Urine Bacteria (Auto) Negative COVID-19 Eval Order Covid19 at [facility] SARS-CoV-2 (PCR) NEGATIVE Blood Type Antibody Screen Crossmatch 08/24/21 08/24/21 08/24/21 00:53 07:28 07:28 WBC 7.73 RBC 2.30 L Hgb 7.1 L 6.9 L* Hct 22.0 L 20.9 L* MCV 90.9 MCH 30.0 MCHC 33.0 RDW Std Deviation 64.0 H RDW Coeff of Sharad 19.8 H Plt Count 183 MPV 9.2 Immature Gran % (Auto) 0.3 Neut % (Auto) 68.8 Lymph % (Auto) 16.8 [place] % (Auto) 12.7 Eos % (Auto) 1.3 Baso % (Auto) 0.1 Neut # (Auto) 5.32 Lymph # (Auto) 1.30 [place] # (Auto) 0.98 H Eos # (Auto) 0.10 Baso # (Auto) 0.01 Immature Gran # (Auto) 0.02 Absolute Nucleated RBC Nucleated RBC % (auto) Polychromasia 1+ Basophilic Stippling 1+ Anisocytosis Present PT INR APTT PTT Ratio Sodium 140 Potassium 3.9 Chloride 109 H Carbon Dioxide 24 Anion Gap 7.0 BUN 79 H Creatinine 4.55 H* D Est Cr Clr Drug Dosing 18.1 Est GFR ( Amer) 14.8 Est GFR (Non-Af Amer) 12.8 BUN/Creatinine Ratio 17.1 Glucose 96 POC Glucose Lactate Calcium 7.9 L Magnesium Total Bilirubin 0.3 AST 40 H ALT 59 Alkaline Phosphatase 48 Total Protein 6.0 L Albumin 2.4 L Globulin 3.6 Albumin/Globulin Ratio 0.7 L Procalcitonin Urine Color Urine Appearance Urine pH Ur Specific [place] Urine Protein Urine Glucose (UA) Urine Ketones Urine Blood Urine Nitrite Urine Bilirubin Urine Urobilinogen Ur Leukocyte Esterase Urine WBC (Auto) Urine RBC (Auto) U Hyaline Cast (Auto) U Epithel Cells (Auto) Urine Bacteria (Auto) COVID-19 Eval Order SARS-CoV-2 (PCR) Blood Type Antibody Screen Crossmatch 08/24/21 11:09 WBC RBC Hgb Hct MCV MCH MCHC RDW Std Deviation RDW Coeff of Sharad Plt Count MPV Immature Gran % (Auto) Neut % (Auto) Lymph % (Auto) [place] % (Auto) Eos % (Auto) Baso % (Auto) Neut # (Auto) Lymph # (Auto) [place] # (Auto) Eos # (Auto) Baso # (Auto) Immature Gran # (Auto) Absolute Nucleated RBC Nucleated RBC % (auto) Polychromasia Basophilic Stippling Anisocytosis PT INR APTT PTT Ratio Sodium Potassium Chloride Carbon Dioxide Anion Gap BUN Creatinine Est Cr Clr Drug Dosing Est GFR ( Amer) Est GFR (Non-Af Amer) BUN/Creatinine Ratio Glucose POC Glucose 205 H Lactate Calcium Magnesium Total Bilirubin AST ALT Alkaline Phosphatase Total Protein Albumin Globulin Albumin/Globulin Ratio Procalcitonin Urine Color Urine Appearance Urine pH Ur Specific [place] Urine Protein Urine Glucose (UA) Urine Ketones Urine Blood Urine Nitrite Urine Bilirubin Urine Urobilinogen Ur Leukocyte Esterase Urine WBC (Auto) Urine RBC (Auto) U Hyaline Cast (Auto) U Epithel Cells (Auto) Urine Bacteria (Auto) COVID-19 Eval Order SARS-CoV-2 (PCR) Blood Type Antibody Screen Crossmatch PG Care Time/CCT Total # of Minutes Spent Total Time Spent with Patient: Total time spent is greater than 50% in coordination of care (as documented) at patient's floor/unit and/or counseling patient: Coding Level of Care Code 36228 Inpt Consult Level 4 Diagnoses Blood loss anemia D50.0 TATE (acute kidney injury) N17.9 CKD stage 4 due to type 2 diabetes mellitus E11.22; N18.4 Cellulitis L03.90
[2021-08-24 15:07] LABS: Hematocrit (blood only) 25.1 % (42-52); Hemoglobin 8.1 g/dL (14.0-18.0)
[2021-08-24] MEDS ORDERED: Nursing to Pharmacy Communication SCH (19:00)
[2021-08-24 21:10] LABS: Hematocrit (blood only) 28.2 % (42-52); Hemoglobin 9.3 g/dL (14.0-18.0)
[2021-08-25] MEDS: NORMOSOL-R 1,000 ML IV SCH ×2 (05:44→16:59)
[2021-08-25 07:35] LABS: Hematocrit (blood only) 29.2 % (42-52); Hemoglobin 9.6 g/dL (14.0-18.0); Mean Corpuscular Hemoglobin 29.6 pg (25-34); Mean Corpuscular Hgb Conc 32.9 g/dL (32-36); Mean Corpuscular Volume 90.1 fL (80-100); Mean Platelet Volume 8.8 fL (7.4-10.4); Platelet Count 165 K/uL (130-400); RDW Coefficient of Variation 18.3 % (11.5-14.5); RDW Standard Deviation 59.4 fL (36.4-46.3); Red Blood Count 3.24 M/uL (4.7-6.1); White Blood Count 9.16 K/uL (4.8-10.8)
[2021-08-25 07:46] LABS: INR 1.1 (0.9-1.1)
[2021-08-25 08:11] LABS: Albumin Level 2.6 gm/dl (3.4-5.0); BUN Creatinine Ratio 14.9 (10-20); Calcium 8.1 mg/dl (8.5-10.1); Creatinine Clr Calc Pharmacy 18.8 ml/min; Est GFR (African American) 15.2 ml/min; Est GFR (Non-African American) 13.2 ml/min; Magnesium 2.2 mg/dl (1.8-2.4); Potassium 3.9 mmol/L (3.5-5.1)
[2021-08-25 08:14] LABS: Albumin Globulin Ratio 0.7 (0.9-2); Bilirubin,Total 0.6 mg/dl (0.2-1); Globulin 3.8 gm/dl (2.5-4.0); Total Protein 6.4 gm/dl (6.4-8.2)
[2021-08-25] MEDS: PANTOprazole 40 MG in SYRINGE 0 ML IV SCH ×2 (08:50→22:23)
[2021-08-25] MEDS: INSULIN GLARGINE SOLOSTAR 100 UNITS/ML 3 ML PEN SC SCH ×2 (08:51→22:25)
[2021-08-25] MEDS: INSULIN ASPART 100 UNITS/ML 3 ML PEN SC SCH ×4 (08:54→22:24)
[2021-08-25] MEDS ORDERED: EPOETIN ALFA 4,000 UNIT/ML VIAL SQ ONE (10:30)
[2021-08-25] MEDS ORDERED: IRON SUCROSE 200 MG in 0.9 % SODIUM CHLORIDE 100 ML IV ONE (10:30)
[2021-08-25] MEDS ORDERED: NORMOSOL-R 1,000 ML IV SCH (11:30)
--- NOTE | 2021-08-25 11:31 | Nephrology Progress Note ---
Date of Service August 25, 2021 Assessment & Plan (1) TATE (acute kidney injury): Plan: Non-oliguric. Electrolytes acceptable. Clinical presentation consistent with prerenal and hemodynamically mediated TATE with ATN and recent Bactrim. Creatinine slightly improved. No emergent indication for dialysis at this time. No current renal imaging. Urine microscopy acellular. Medications appropriate for kidney function. Bactrim discontinued. Rosuvastatin held. CK acceptable. Losartan held. Maintain positive fluid balance. Hgb goal >8. Repeat metabolic profile tomorrow AM. (2) CKD stage 4 due to type 2 diabetes mellitus: Plan: Creatinine 2.5-2.7 mg/dL during prior admission. UA +protein. Consistent with DKD. (3) Blood loss anemia: Plan: Hgb goal >8 in setting of TATE. Improved with PRBC transfusion support. No melena or hematochezia reported this AM. I have ordered 4000 units of Epogen and 200 mg IV iron this AM. (4) Cellulitis: Plan: BActrim stopped. Started on Dapto. Monitor CK. Admission and Anticipated Discharge Date Admission Date: August 23, 2021 Subjective No acute events overnight. No BM this AM. Overall feels well. Some persistent pain in leg. No fevers or chills. Good urine output. Review of Systems Review of Systems: All systems reviewed & are unremarkable except as noted in HPI & below Physical Exam Constitutional: well developed; no acute distress Eyes: no scleral abnormality and no corneal abnormality ENMT: Mouth: no oral mucosal abnormality and oral mucous membranes not dry Neck: normal visual inspection and trachea midline Respiratory: normal respiratory effort Auscultation: lungs clear to auscultation bilaterally Cardiovascular: Rate/Rhythm: regular rate Heart Sounds: normal S1 and no rmal S2 Extremities: no edema Musculoskeletal: Extremities: no cyanosis and no clubbing Skin: normal turgor, + induration and + subcutaneous nodules (sabaceous abscess on lower right extremity) Neurologic: Motor/Sensory: no tremor and no asterixis Psychiatric: Orientation: alert and oriented x 3 Results & Data ([facility]) Vital Signs (Past 12 Hours) Vital Signs Temp Pulse Pulse Resp BP Pulse Ox 08/25/21 09:58 36.9 C 65 18 148/78 H 97 08/25/21 07:32 67 08/25/21 04:12 36.7 C 65 18 128/76 96 08/25/21 00:46 72 Laboratory Results Laboratory Results - last 24 hr 08/23/21 08/24/21 08/24/21 16:43 14:58 16:38 WBC RBC Hgb 8.1 L Hct 25.1 L MCV MCH MCHC RDW Std Deviation RDW Coeff of Sharad Plt Count MPV PT INR Sodium Potassium Chloride Carbon Dioxide Anion Gap BUN Creatinine Est Cr Clr Drug Dosing Est GFR ( Amer) Est GFR (Non-Af Amer) BUN/Creatinine Ratio Glucose POC Glucose 134 H Calcium Magnesium Total Bilirubin AST ALT Alkaline Phosphatase Total Protein Albumin Globulin Albumin/Globulin Ratio Blood Type O Negative Antibody Screen NEGATIVE Crossmatch See Detail 08/24/21 08/24/21 08/25/21 20:33 20:45 07:03 WBC 9.16 RBC 3.24 L Hgb 9.3 L 9.6 L Hct 28.2 L 29.2 L MCV 90.1 MCH 29.6 MCHC 32.9 RDW Std Deviation 59.4 H RDW Coeff of Sharad 18.3 H Plt Count 165 MPV 8.8 PT INR Sodium Potassium Chloride Carbon Dioxide Anion Gap BUN Creatinine Est Cr Clr Drug Dosing Est GFR ( Amer) Est GFR (Non-Af Amer) BUN/Creatinine Ratio Glucose POC Glucose 149 H Calcium Magnesium Total Bilirubin AST ALT Alkaline Phosphatase Total Protein Albumin Globulin Albumin/Globulin Ratio Blood Type Antibody Screen Crossmatch 08/25/21 08/25/21 08/25/21 07:03 07:03 07:37 WBC RBC Hgb Hct MCV MCH MCHC RDW Std Deviation RDW Coeff of Sharad Plt Count MPV PT 11.0 INR 1.1 Sodium 140 Potassium 3.9 Chloride 105 Carbon Dioxide 24 Anion Gap 11.0 BUN 66 H Creatinine 4.44 H Est Cr Clr Drug Dosing 18.8 Est GFR ( Amer) 15.2 Est GFR (Non-Af Amer) 13.2 BUN/Creatinine Ratio 14.9 Glucose 94 POC Glucose 107 H Calcium 8.1 L Magnesium 2.2 Total Bilirubin 0.6 AST 53 H ALT 80 H Alkaline Phosphatase 61 Total Protein 6.4 Albumin 2.6 L Globulin 3.8 Albumin/Globulin Ratio 0.7 L Blood Type Antibody Screen Crossmatch 08/25/21 11:22 WBC RBC Hgb Hct MCV MCH MCHC RDW Std Deviation RDW Coeff of Sharad Plt Count MPV PT INR Sodium Potassium Chloride Carbon Dioxide Anion Gap BUN Creatinine Est Cr Clr Drug Dosing Est GFR ( Amer) Est GFR (Non-Af Amer) BUN/Creatinine Ratio Glucose POC Glucose 228 H Calcium Magnesium Total Bilirubin AST ALT Alkaline Phosphatase Total Protein Albumin Globulin Albumin/Globulin Ratio Blood Type Antibody Screen Crossmatch PG Care Time/CCT Total # of Minutes Spent Total Time Spent with Patient: Total time spent is greater than 50% in coordina tion of care (as documented) at patient's floor/unit and/or counseling patient: Coding Level of Care Code 59177 Subseq Hosp Care Lvl 3 Diagnoses TATE (acute kidney injury) N17.9 CKD stage 4 due to type 2 diabetes mellitus E11.22; N18.4 Blood loss anemia D50.0 Cellulitis L03.90
--- NOTE | 2021-08-25 13:28 | Hospitalist Progress Note ---
Date of Service August 25, 2021 Assessment & Plan (1) Cellulitis: Plan: - appears to clinically have a small abscess as well (over anterior santiago). I was able to squeeze this and facilitate passing of purulent fluid. - CT done showing no evidence of abscess - The area around this is still indurate. ? communicating abscess just lateral to where area was drained. Will obtain an MRI - culture obtained upon admission from crack noted in heel but this does not appear to be clinically infected - Repeat culture obtained from anterior santiago wound with prelim growth of Staph species. Patient has h/o MRSA. Continue Dapto with final culture data to guide treatment - blood cultures showing NGTD (2) Blood loss anemia: Plan: - suspect UGI bleed: melanotic stools on Eliquis and ASA (A.Fib), positive Hemoccult - ACT and ASA remain on hold - s/p transfusion 4 units packed cells total - Was marginally hypotensive. This has stabilized with improvement in H/H - Epogen and Venofer given by Nephro (which is also on board). Appreciate recommendations - I do not see that iron studies/retic count/erythropoietin level done but zeynep ent already received blood and results will be skewed. 1 dose venofer ordered - GI consulted for endoscopy--? Plan is to pursue Upper and lower endoscopy per GI. Initially plan was for Thursday but with persistent A/CKD-- this has been moved until Thursday as I an concerned that the prep will only exacerbate his acute renal impairment. - Continue PPI - monitor labs closely to trend (3) TATE (acute kidney injury): Plan: - Acute on Chronic renal impairment - likely multifactorial - patient limited historian but Bactrim noted to be on medlist (reports believes to have been on this for long time from old wound on back but documentation states was started on Thursday) - WOULD AVOID BACTRIM given h/o CXR (baseline Cr. 2.5-2.7) - In addition, may have component of ATN d/t hypoperfusion from anemia/hypotension). Get urine lytes to differentiate FENa - No significant change in renal function compared to yesterday. - normosol IVF on board. Goal is for positive fluid balance (again, reason for holding of on c-scope for now) - monitor renal function closely - hold nephrotoxic meds (ARB) and renally adjust when appropriate - nephro consulted. appreciate recommendations - currently, patient with NORMAL anion Gap/serum bicarb and no electrolyte abnormalities. good urinary output - refused JESSICA CATHETER (4) Diabetes mellitus type 2 in obese: Plan: -Patient ordered Lantus and NovoLog. Continue this with close blood sugar monitoring (BS acceptable this am at 107) (5) HTN (hypertension): Plan: -Antihypertensive medications currently on hold given marginal hypotension upfront-- likely related to anemia. -BP currently stable at 125/71. HR 68. Reassess tomorrow with likely resumption of antihypertensive medications (at least the metoprolol. Patient chronically on losartan; however, this may need stopped all together with the renal impairment) (6) Paroxysmal A-fib: Plan: -Currently in a normal sinus rhythm with controlled ventricular rate -Amiodarone has been continued -Eliquis on hold given melanotic stools and hemoglobin of 5.6 upon presentation with presumed UGI bleed Plan: - continue IV hydration - continue abx therapy - plan for Upper and lower endoscopy on Thursday (Prep will need ordered for ) Admission and Anticipated Discharge Date Admission Date: August 23, 2021 Subjective Patient seen on daily rounds today. Overall, feeling better. No longer having fatigue, dyspnea on exertion. H&H has remained stable (9.6 and 29.2). Seen by GI who is planning for upper and lower endoscopy on Thursday. I did vocalize some concern with colonoscopy prepgiven his acute on chronic renal impairment. GI appreciated this and plan is for upper and lower endoscopy on Thursday. His Eliquis and aspirin remain on hold and he is empirically on Protonix. Regarding the cellulitis, his wound culture is growing staph species. Sensitivities to follow. Complaining of persistent pain in the leg but has been afebrile and his white blood cell count has been normal. CT scan showed no evidence of drainable abscess. Renal function appears stable from yesterday. Improved from baseline. Creatinine 4.44. He is not acidotic (anion gap closed. Serum bicarb normal.) No electrolyte abnormalities. Not confused or uremic. Making urine. Jessica catheter was ordered for accurate I's and O's but patient refused. Patient did receive Normosol between blood transfusion units. Nephrology on boardappreciate recommendations. Review of Systems Review of Systems: All systems reviewed and are unremarkable except as noted in HPI and below Denies fevers, chills, headache, nasal congestion, sore throat, cough, chest pain, shortness of breath, palpitations, orthopnea, PND, abdominal pain, nausea, vomiting, diarrhea, constipation, dysuria, hematuria, frequency, back pain, easy bruising or bleeding Physical Exam Physical Exam: General: Resting comfortably in his hospital bed. Does not appear ill or toxic. NAD. HEENT: Head is AT/NC buccal mucosa is moist and pink Neck: No JVD. Negative hepatojugular reflex Cardiac: Appears RRR but distant Lungs: CTA without W/R/R Abdomen: Normoactive X4. Soft and nontender in all quadrants. Extremities: Area of erythema on the anterior santiago appears similar to yesterday. Was able to facilitate drainage yesterday. None noted today. There still appears to be an area of induration lateral to where drainage was (? communicating abscess) Neuro: A&O X4 cranial nerves II through XII are grossly intact no focal neuro deficits Skin: See above Psych: Appropriate affect pleasant and cooperative Results & Data Results & Data ([facility]) Vital Signs (Past 12 Hours) Vital Signs Temp Pulse Pulse Resp BP Pulse Ox 08/25/21 11:40 36.9 C 68 18 125/71 98 08/25/21 09:58 36.9 C 65 18 148/78 H 97 08/25/21 07:32 67 08/25/21 04:12 36.7 C 65 18 128/76 96 Laboratory Results 08/25/21 07:03 08/25/21 07:03 Gram Stain Final 08/24/21-1455 Gram Stain Result Rare WBCs Seen Rare Gram Positive Cocci Surface Wound Culture Preliminary 08/25/21 Organism 1 Staphylococcus species Quantity Moderate Sens Sensitivities to Follow Procedure Result Verified Site Blood Culture Aerobic Preliminary 08/24/21 No growth in Aerobic bottle after 24 hours. Blood Culture Anaerobic Preliminary 08/24/21 No growth in Anaerobic bottle after 24 hours. Procedure Result Verified Site Blood Culture Aerobic Preliminary 08/24/21 No growth in Aerobic bottle after 24 hours. Blood Culture Anaerobic Preliminary 08/24/21 No growth in Anaerobic bottle after [address] of the Right lower extremity: IMPRESSION: No evidence of drainable abscess. Soft tissue stranding and skin thickening in the posterior medial soft tissues may represent cellulitis, correlation with clinical exam is recommended. Diffuse varices. PG Care Time/CCT Total # of Minutes Spent Total Time Spent with Patient: Total time spent is greater than 50% in coordination of care (as documented) at patient's floor/unit and/or counseling patient: [place] [address] Subseq Hosp Care Lvl 3 Patient Type Established History Comprehensive Exam Comprehensive Medical Decision Making High Complexity Diagnoses Cellulitis L03.90 Blood loss anemia D50.0 TATE (acute kidney injury) N17.9 Diabetes mellitus type 2 in obese E11.69; E66.9 HTN (hypertension) I10 Hypertension type: essential hypertension Paroxysmal A-fib I48.0 (1) HTN (hypertension) Hypertension type: essential hypertension Qualified Code(s): I10 - Essential (primary) hypertension
--- NOTE | 2021-08-25 16:46 | Magnetic Resonance Report ---
MR lower leg RT wo con HISTORY: Right leg swelling. presumed abscess right lower extremity. cant have contrast TECHNIQUE: Multiplanar multisequence MRI of the right lower leg was performed without contrast accord ing to standard departmental protocol. COMPARISON STUDY: Right lower leg CT 08/24/2021. FINDINGS: Extensive subcutaneous edema seen throughout the right lower leg most pronounced distally. Multiple superficial varicosities seen within the medial aspect of the lower leg. 1 cm subcutaneous f ocal fluid collection within the mid right lower leg laterally best seen on axial image 31. This may represent a small subcutaneous abscess. There is mild soft tissue edema surrounding the mid fibula. E brando appears to be extending from the superficial abscess. Normal marrow signal intensity seen throug hout the tibia and fibula. No evidence for osteomyelitis. No fracture or dislocation within the right lower leg. IMPRESSION: 1. There is a 1 cm subcutaneous focal fluid collection within the mid right lower leg laterally as de scribed above. This favors a small subcutaneous abscess. 2. There is also mild soft tissue edema surrounding the mid fibula at the level of the suspected smal l abscess. This appears to extend from the superficial abscess and suggests an associated mild myosit is/fasciitis. 3. Extensive subcutaneous edema within the right lower leg. 4. No abnormal signal intensity within the tibia or fibula to suggest an osteomyelitis. ACT 112: Negative or not required by law. Electronically signed by: Leo Mckeon M.D. 08/25/2021 4:45 PM
--- NOTE | 2021-08-25 19:21 | Electrocardiogram Report ---
Test Reason : Blood Pressure : / mmHG Vent. Rate : 065 BPM Atrial Rate : 065 BPM P-R Int : 224 ms QRS Dur : 094 ms QT Int : 472 ms P-R-T Axes : 068 018 035 degrees QTc Int : 490 ms Sinus rhythm with 1st degree A-V block Prolonged QT Abnormal ECG When compared with ECG of 13-AUG-2020 14:04, Nonspecific T wave abnormality no longer evident in Lateral leads Confirmed by Guillermo Sidhu ([id number]) on 08/25/2021 7:21:23 PM Referred By: Efrain SCI Confirmed By:Guillermo Sidhu
[2021-08-25 21:23] LABS: Creatinine Urine Random 33.8 mg/dl
[2021-08-25] MEDS: DAPTOmycin 300 MG in SYRINGE 0 ML IV SCH (22:23)
[2021-08-26] MEDS: NORMOSOL-R 1,000 ML IV SCH ×2 (02:12→13:43)
[2021-08-26 07:16] LABS: Basophils # (auto) 0.02 K/uL (0-0.2); Basophils % (auto) 0.2 %; Eosinophils # (auto) 0.16 K/uL (0-0.5); Eosinophils % (auto) 1.7 %; Hematocrit (blood only) 28.6 % (42-52); Hemoglobin 9.3 g/dL (14.0-18.0); Immature Granulocytes # (auto) 0.02 K/uL (0.00-0.02); Immature Granulocytes % (auto) 0.2 %; Lymphocytes # (auto) 1.12 K/uL (1.2-3.4); Lymphocytes % (auto) 12.1 %; Mean Corpuscular Hemoglobin 29.3 pg (25-34); Mean Corpuscular Hgb Conc 32.5 g/dL (32-36); Mean Corpuscular Volume 90.2 fL (80-100); Mean Platelet Volume 9.1 fL (7.4-10.4); Monocytes # (auto) 1.13 K/uL (0.11-0.59); Monocytes % (auto) 12.2 %; Neutrophils # (auto) 6.82 K/uL (1.4-6.5); Neutrophils % (auto) 73.6 %; Platelet Count 193 K/uL (130-400); RDW Coefficient of Variation 18.2 % (11.5-14.5); RDW Standard Deviation 59.3 fL (36.4-46.3); Red Blood Count 3.17 M/uL (4.7-6.1); White Blood Count 9.27 K/uL (4.8-10.8)
[2021-08-26 07:46] LABS: Albumin Level 2.4 gm/dl (3.4-5.0); BUN Creatinine Ratio 13.4 (10-20); Calcium 8.3 mg/dl (8.5-10.1); Creatinine Clr Calc Pharmacy 20.1 ml/min; Est GFR (African American) 16.5 ml/min; Est GFR (Non-African American) 14.3 ml/min; Potassium 3.9 mmol/L (3.5-5.1)
[2021-08-26 07:49] LABS: Albumin Globulin Ratio 0.6 (0.9-2); Bilirubin,Total 0.4 mg/dl (0.2-1); Total Protein 6.4 gm/dl (6.4-8.2)
[2021-08-26] MEDS: INSULIN GLARGINE SOLOSTAR 100 UNITS/ML 3 ML PEN SC SCH ×2 (08:51→21:33)
[2021-08-26] MEDS: INSULIN ASPART 100 UNITS/ML 3 ML PEN SC SCH ×4 (08:54→21:33)
[2021-08-26] MEDS: PANTOprazole 40 MG in SYRINGE 0 ML IV SCH ×2 (08:57→21:34)
--- NOTE | 2021-08-26 10:06 | Communication Note ---
Date of Service: August 26, 2021 Spoke with patient's nurse as patient was to have an EGD & colon today and does not appear to be prepped. Was informed hospitalist deferred this due to other medical concerns at the moment. Would ask that hospitalist team please notify GI when patient is medically ready to proceed and we will then determine date/time of endoscopy. Agree with EVE Mirza as above Proceed with EGD and Colonoscopy when patient is medically stable to proceed.
--- NOTE | 2021-08-26 10:15 | Nephrology Progress Note ---
Date of Service August 26, 2021 Assessment & Plan (1) TATE (acute kidney injury): Plan: Non-oliguric. Electrolytes acceptable. Clinical presentation consistent with prerenal and hemodynamically mediated TATE with ATN and recent Bactrim. Creatinine continues to demonstrate early stages of renal recovery. No indication for dialysis at this time. No current renal imaging. Urine microscopy acellular. Medications appropriate for kidney function. Bactrim discontinued. Rosuvastatin held. CK acceptable. Losartan held. Maintain positive fluid balance. Hgb goal >8. Repeat metabolic profile tomorrow AM. (2) CKD stage 4 due to type 2 diabetes mellitus: Plan: Creatinine 2.5-2.7 mg/dL during prior admission. UA +protein. Consistent with DKD. (3) Blood loss anemia: Plan: Hgb goal >8 in setting of TATE. Improved with PRBC transfusion support. No melena or hematochezia reported this AM. Epogen 4000 units and 200 mg IV iron provided yesterday. (4) Cellulitis: Plan: BActrim stopped. Started on Dapto. Monitor CK. Admission and Anticipated Discharge Date Admission Date: August 23, 2021 Subjective No acute events overnight. Mr. Crooks states that he is tired this morning but otherwise feels well. No BM. Denies any melena or hematochezia overnight. Breathing comfortably. No fevers or chills. Appetite good. Review of Systems Review of Systems: All systems reviewed & are unremarkable except as noted in HPI & below Physical Exam Constitutional: well developed; no acute distress Eyes: no scleral abnormality and no corneal abnormality ENMT: Mouth: no oral mucosal abnormality and oral mucous membranes not dry Neck: normal visual inspection and trachea midline Respiratory: normal respiratory effort Auscultation: lungs clear to auscultation bilaterally Cardiovascular: Rate/Rhythm: regular rate Heart Sounds: normal S1 and normal S2 Extremities: no edema Musculoskeletal: Extremities: no cyanosis and no clubbing Skin: normal turgor, + induration and + subcutaneous nodules (sabaceous abscess on lower right extremity) Neurologic: Motor/Sensory: no tremor and no asterixis Psychiatric: Orientation: alert and oriented x 3 Results & Data ([facility]) Vital Signs (Past 12 Hours) Vital Signs Temp Pulse Pulse Resp BP BP Pulse Ox 08/26/21 07:47 36.7 C 68 18 137/73 95 08/26/21 07:27 78 10/04/21 03:08 36.9 C 72 18 132/65 96 08/26/21 01:41 71 08/25/21 22:56 36.9 C 70 18 152/76 H 95 Laboratory Results Laboratory Results - last 24 hr 08/25/21 08/25/21 08/25/21 11:22 16:54 20:01 WBC RBC Hgb Hct MCV MCH MCHC RDW Std Deviation RDW Coeff of Sharad Plt Count MPV Immature Gran % (Auto) Neut % (Auto) Lymph % (Auto) Hernando % (Auto) Eos % (Auto) Baso % (Auto) Neut # (Auto) Lymph # (Auto) Hernando # (Auto) Eos # (Auto) Baso # (Auto) Immature Gran # (Auto) Sodium Potassium Chloride Carbon Dioxide Anion Gap BUN Creatinine Est Cr Clr Drug Dosing Est GFR ( Amer) Est GFR (Non-Af Amer) BUN/Creatinine Ratio Glucose POC Glucose 228 H 142 H 162 H Calcium Total Bilirubin AST ALT Alkaline Phosphatase Total Protein Albumin Globulin Albumin/Globulin Ratio Ur Random Creatinine Ur Random Sodium 08/25/21 08/26/21 08/26/21 20:50 06:17 06:17 WBC 9.27 RBC 3.17 L Hgb 9.3 L Hct 28.6 L MCV 90.2 MCH 29.3 MCHC 32.5 RDW Std Deviation 59.3 H RDW Coeff of Sharad 18.2 H Plt Count 193 MPV 9.1 Immature Gran % (Auto) 0.2 Neut % (Auto) 73.6 Lymph % (Auto) 12.1 Hernando % (Auto) 12.2 Eos % (Auto) 1.7 Baso % (Auto) 0.2 Neut # (Auto) 6.82 H Lymph # (Auto) 1.12 L Hernando # (Auto) 1.13 H Eos # (Auto) 0.16 Baso # (Auto) 0.02 Immature Gran # (Auto) 0.02 Sodium 141 Potassium 3.9 Chloride 107 Carbon Dioxide 24 Anion Gap 10.0 BUN 56 H Creatinine 4.15 H Est Cr Clr Drug Dosing 20.1 Est GFR ( Amer) 16.5 Est GFR (Non-Af Amer) 14.3 BUN/Creatinine Ratio 13.4 Glucose 125 H POC Glucose Calcium 8.3 L Total Bilirubin 0.4 AST 49 H ALT 76 Alkaline Phosphatase 73 Total Protein 6.4 Albumin 2.4 L Globulin 4.0 Albumin/Globulin Ratio 0.6 L Ur Random Creatinine 33.8 Ur Random Sodium 86 08/26/21 07:59 WBC RBC Hgb Hct MCV MCH MCHC RDW Std Deviation RDW Coeff of Sharad Plt Count MPV Immature Gran % (Auto) Neut % (Auto) Lymph % (Auto) Hernando % (Auto) Eos % (Auto) Baso % (Auto) Neut # (Auto) Lymph # (Auto) Hernando # (Auto) Eos # (Auto) Baso # (Auto) Immature Gran # (Auto) Sodium Potassium Chloride Carbon Dioxide Anion Gap BUN Creatinine Est Cr Clr Drug Dosing Est GFR ( Amer) Est GFR (Non-Af Amer) BUN/Creatinine Ratio Glucose POC Glucose 143 H Calcium Total Bilirubin AST ALT Alkaline Phosphatase Total Protein Albumin Globulin Albumin/Globulin Ratio Ur Random Creatinine Ur Random Sodium PG Care Time/CCT Total # of Minutes Spent Total Time Spent with Patient: Total time spent is greater than 50% in coordination of care (as documented) at patient's floor/unit and/or counseling patient: Coding Level of Care Code 19741 Subseq Hosp Care Lvl 3 Diagnoses TATE (acute kidney injury) N17.9 CKD stage 4 due to type 2 diabetes mellitus E11.22; N18.4 Blood loss anemia D50.0 Cellulitis L03.90
--- NOTE | 2021-08-26 12:33 | Orthopedic Consultation ---
Date of Consultation August 26, 2021 Assessment & Plan (1) Abscess of right lower extremity: 65-year-old male with noted abscess as seen on MRI of the right lower extremity. Patient has a history of being on apixaban which has been held since his admission. He is slated for a colonoscopy and EGD on Thursday. I will discuss this case with Dr. Simon who is on-call today. Patient will likely need a small irrigation debridement of this area. Currently on daptomycin. History of Present Illness Reason for Consultation: Abscess right lateral lower extremity Attending Physician: Reji Laurent History of Present Illness Patient is a 65-year-old male who resides at [facility], [place]. Patient has history of diabetes mellitus type 2, endocarditis, hypertension, hyperlipidemia, paroxysmal atrial fibrillation. Patient states that he began noticing increased redness of the lateral portion of his left lower extremity just above the ankle on Thursday. He has not been taking any antibiotics etc. for this. He felt to be looked at and placed medical papers into the [facility] to be seen. Patient was having multiple other problems though and was eventually brought to the hospital. Admitting hemoglobin was 5.6 and patient had a history of melena. Creatinine was also elevated at 5.3 whereas his normal was running in the upper twos. Patient states " I have got a lot of medical problems". Patient is planned for EGD and colonoscopy on Thursday. Current hemoglobin is above 9. It was noticed that his area of cellulitis was getting a little bit larger and that he had an area that was indurated and swollen. At 1 point some drainage was expressed from a small area over the anterior santiago which proved to be MRSA. MRI was obtained and showed a small abscess over the lateral aspect of the lower extremity. We have been asked to see him for this abscess. Allergies Allergy/AdvReac Type Severity Reaction Status Date / Time eggplant Allergy Verified 08/24/21 16:38 sodium chloride Allergy Unknown Verified 08/23/21 18:15 [From [place] Nasal] Home Medications Medication Instructions Recorded Confirmed Type insulin human U-100 NPH-regulr 40 unit SUBCUT QPM 08/13/20 08/23/21 History 70-30 mix 100 unit/mL subcutaneous susp (Novolin 70/30 U-100 Insulin) insulin human U-100 NPH-regulr 45 unit SUBCUT QAM 08/13/20 08/23/21 History 70-30 mix 100 unit/mL subcutaneous susp (Novolin 70/30 U-100 Insulin) rosuvastatin 40 mg tablet 40 mg PO DAILY 08/13/20 08/23/21 History amiodarone 200 mg tablet 200 mg PO BID 02/27/21 08/23/21 History aspirin 81 mg tablet,delayed 81 mg PO DAILY 02/27/21 08/23/21 History release (Aspirin Low Dose) losartan 25 mg tablet 25 mg PO DAILY 02/27/21 08/23/21 History metoprolol tartrate 25 mg tablet 25 mg PO BID 02/27/21 08/23/21 History apixaban 5 mg tablet 5 mg PO BID 08/23/21 08/23/21 History insulin regular human 100 unit/mL 1 sliding scale dose SUBCUT 08/23/21 08/23/21 History injection solution cartridge USEASDIRECTD sulfamethoxazole 800 1 tab PO BID 08/23/21 08/23/21 History mg-trimethoprim 160 mg tablet (Bactrim DS) Patient History Medical History Cellulitis Diabetes Diabetes mellitus type 2 in obese Endocarditis Gangrene HTN (hypertension) Hyperlipidemia Paroxysmal A-fib Sepsis Umbilical hernia Surgical History History of Diann's gangrene With debridement x2 in 2019 at [facility] Family History Other Family history non-contributory Social History Smoking Status: Unknown if ever smoked Hx Alcohol Use: No Hx Substance Use: No Preferred Language: Kinyarwanda Communication Ability: Effective 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 He is sitting up in bed watching TV. He is in no acute distress, pleasant and cooperative. Oriented x3. Patient takes the covers off of his right lower extremity to show me the area. Just above the ankle over the lateral aspect of the lower extremity there is an area of cellulitis and induration that has been marked with a marker. The erythema does not appear to have overstep the boundaries. He has another small area marked that is over the posterior area as well with no induration. He has an obvious lump protruding out from the skin with some small superficial pustules. This area is approximately 2 cm wide. There are no open areas of drainage. I am unable to express any drainage from this area. He is tender on palpation. Induration noted around this area of abscess. Results & Data ([facility]) Vital Signs (Past 12 Hours) Vital Signs Temp Pulse Pulse Resp BP Pulse Ox 08/26/21 07:47 36.7 C 68 18 137/73 95 08/26/21 07:27 78 08/26/21 03:08 36.9 C 72 18 132/65 96 08/26/21 01:41 71 Diagnostic Findings Laboratory Results WBC 9.27 K/uL (4.8-10.8) 08/26/21 06:17 RBC 3.17 M/uL (4.7-6.1) L 08/26/21 06:17 Hgb 9.3 g/dL (14.0-18.0) L 08/26/21 06:17 Hct 28.6 % (42-52) L 08/26/21 06:17 MCV 90.2 fL (80-100) 08/26/21 06:17 MCH 29.3 pg (25-34) 08/26/21 06:17 MCHC 32.5 g/dL (32-36) 08/26/21 06:17 RDW Std Deviation 59.3 fL (36.4-46.3) H 08/26/21 06:17 RDW Coeff of Sharad 18.2 % (11.5-14.5) H 08/26/21 06:17 Plt Count 193 K/uL (130-400) 08/26/21 06:17 MPV 9.1 fL (7.4-10.4) 08/26/21 06:17 Immature Gran % (Auto) 0.2 % 08/26/21 06:17 Neut % (Auto) 73.6 % 08/26/21 06:17 Lymph % (Auto) 12.1 % 08/26/21 06:17 [place] % (Auto) 12.2 % 08/26/21 06:17 Eos % (Auto) 1.7 % 08/26/21 06:17 Baso % (Auto) 0.2 % 08/26/21 06:17 Neut # (Auto) 6.82 K/uL (1.4-6.5) H 08/26/21 06:17 Lymph # (Auto) 1.12 K/uL (1.2-3.4) L 08/26/21 06:17 [place] # (Auto) 1.13 K/uL (0.11-0.59) H 08/26/21 06:17 Eos # (Auto) 0.16 K/uL (0-0.5) 08/26/21 06:17 Baso # (Auto) 0.02 K/uL (0-0.2) 08/26/21 06:17 Immature Gran # (Auto) 0.02 K/uL (0.00-0.02) 08/26/21 06:17 Absolute Nucleated RBC 0.02 K/uL (0-0) H 08/23/21 16:43 Nucleated RBC % (auto) 0.2 % 08/23/21 16:43 Polychromasia 1+ 08/24/21 07:28 Basophilic Stippling 1+ 08/24/21 07:28 Anisocytosis Present 08/24/21 07:28 PT 11.0 Seconds (9.0-12.0) 08/25/21 07:03 INR 1.1 (0.9-1.1) 08/25/21 07:03 APTT 25.5 Seconds (21.0-31.0) 08/23/21 16:43 PTT Ratio 1.0 08/23/21 16:43 Sodium 141 mmol/L (136-145) 08/26/21 06:17 Potassium 3.9 mmol/L (3.5-5.1) 08/26/21 06:17 Chloride 107 mmol/L (98-107) 08/26/21 06:17 Carbon Dioxide 24 mmol/L (21-32) 08/26/21 06:17 Anion Gap 10.0 (3-11) 08/26/21 06:17 BUN 56 mg/dl (7-18) H 08/26/21 06:17 Creatinine 4.15 mg/dl (0.6-1.4) H 08/26/21 06:17 Est Cr Clr Drug Dosing 20.1 ml/min 08/26/21 06:17 Est GFR ( Amer) 16.5 ml/min 08/26/21 06:17 Est GFR (Non-Af Amer) 14.3 ml/min 08/26/21 06:17 BUN/Creatinine Ratio 13.4 (10-20) 08/26/21 06:17 Glucose 125 mg/dl (70-99) H 08/26/21 06:17 POC Glucose 200 mg/dl (70-99) H 08/26/21 11:53 Lactate 1.7 mmol/L (0.4-2.0) 08/23/21 16:43 Calcium 8.3 mg/dl (8.5-10.1) L 08/26/21 06:17 Magnesium 2.2 mg/dl (1.8-2.4) 08/25/21 07:03 Total Bilirubin 0.4 mg/dl (0.2-1) 08/26/21 06:17 AST 49 U/L (15-37) H 08/26/21 06:17 ALT 76 U/L (12-78) 08/26/21 06:17 Alkaline Phosphatase 73 U/L (45-117) 08/26/21 06:17 Total Protein 6.4 gm/dl (6.4-8.2) 08/26/21 06:17 Albumin 2.4 gm/dl (3.4-5.0) L 08/26/21 06:17 Globulin 4.0 gm/dl (2.5-4.0) 08/26/21 06:17 Albumin/Globulin Ratio 0.6 (0.9-2) L 08/26/21 06:17 Procalcitonin 0.12 ng/ml (0-0.5) 08/23/21 16:43 Urine Color Yellow 08/23/21 18:59 Urine Appearance Clear (Clear) 08/23/21 18:59 Urine pH 7.5 (4.5-7.5) 08/23/21 18:59 Ur Specific [place] 1.014 (1.000-1.030) 08/23/21 18:59 Urine Protein 2+ (Negative) H 08/23/21 18:59 Urine Glucose (UA) Negative (Negative) 08/23/21 18:59 Urine Ketones Negative (Negative) 08/23/21 18:59 Urine Blood 1+ (Negative) H 08/23/21 18:59 Urine Nitrite Negative (Negative) 08/23/21 18:59 Urine Bilirubin Negative (Negative) 08/23/21 18:59 Urine Urobilinogen Negative (Negative) 08/23/21 18:59 Ur Leukocyte Esterase Negative (Negative) 08/23/21 18:59 Urine WBC (Auto) 1-5 /hpf (0-5) 08/23/21 18:59 Urine RBC (Auto) 0-4 /hpf (0-4) 08/23/21 18:59 U Hyaline Cast (Auto) 1-5 /lpf (0-5) 08/23/21 18:59 U Epithel Cells (Auto) 20-30 /lpf (0-5) H 08/23/21 18:59 Urine Bacteria (Auto) Negative (Negative) 08/23/21 18:59 Ur Random Creatinine 33.8 mg/dl 08/25/21 20:50 Ur Random Sodium 86 mmol/L 08/25/21 20:50 COVID-19 Eval Order Covid19 at [facility] 08/23/21 18:12 SARS-CoV-2 (PCR) NEGATIVE (Negative) 08/23/21 18:12 Blood Type O Negative 08/23/21 16:43 Antibody Screen NEGATIVE 08/23/21 16:43 Crossmatch See Detail 08/23/21 16:43 Impressions Chest X-Ray 08/23/21 16:09 XR chest 1V portable HISTORY: 65 years-old Male SEPSIS acute sepsis COMPARISON: Chest radiograph 08/13/2020 TECHNIQUE: Portable AP view of the chest FINDINGS: Cardiac silhouette is enlarged. No pneumothorax, pleural effusion, airspace consolidation or overt pulmonary edema. No acute fracture. IMPRESSION: Cardiomegaly without acute process. ACT 112: Negative or not required by law. The above report was generated using voice recognition software. It may contain grammatical, syntax or spelling errors. Electronically signed by: Yang Cooper M.D. 08/23/2021 4:[address] 08/24/21 09:38 CT tib/fib RT wo con INDICATION: Pain and swelling, concern for abscess TECHNIQUE: Multidetector row helical CT of the right tibia and fibula was performed without intravenous contrast. Coronal and sagittal reformations were obtained. Automated dose lowering techniques and/or adjustment according to patient size were utilized for this examination. Comparison: None available at the time of this dictation. FINDINGS: The osseous structures are without fracture or dislocation. No joint effusion is seen. The joint spaces are maintained. Varices are noted in the soft tissues of the calf. There is distal soft tissue stranding but no drainable fluid collection is seen. 3 vessel atherosclerotic disease is noted. IMPRESSION: No evidence of drainable abscess. Soft tissue stranding and skin thickening in the posterior medial soft tissues may represent cellulitis, correlation with clinical exam is recommended. Diffuse varices. ACT 112: Negative or not required by law. Electronically signed by: Saul Porter M.D. 08/24/2021 10:29 AM Lower Extremity MRI 08/25/21 08:34 MR lower leg RT wo con HISTORY: Right leg swelling. presumed abscess right lower extremity. cant have contrast TECHNIQUE: Multiplanar multisequence MRI of the right lower leg was performed without contrast according to standard departmental protocol. COMPARISON STUDY: Right lower leg CT 08/24/2021. FINDINGS: Extensive subcutaneous edema seen throughout the right lower leg most pronounced distally. Multiple superficial varicosities seen within the medial aspect of the lower leg. 1 cm subcutaneous focal fluid collection within the mid right lower leg laterally best seen on axial image 31. This may represent a small subcutaneous abscess. There is mild soft tissue edema surrounding the mid fibula. Edema appears to be extending from the superficial abscess. Normal marrow signal intensity seen throughout the tibia and fibula. No evidence for osteomyelitis. No fracture or dislocation within the right lower leg. IMPRESSION: 1. There is a 1 cm subcutaneous focal fluid collection within the mid right lower leg laterally as described above. This favors a small subcutaneous abscess. 2. There is also mild soft tissue edema surrounding the mid fibula at the level of the suspected small abscess. This appears to extend from the superficial abscess and suggests an associated mild myositis/fasciitis. 3. Extensive subcutaneous edema within the right lower leg. 4. No abnormal signal intensity within the tibia or fibula to suggest an osteomyelitis. ACT 112: Negative or not required by law. Electronically signed by: Leo Mckeon M.D. 08/25/2021 4:45 PM
--- NOTE | 2021-08-26 15:19 | Orthopedic Consultation ---
Date of Consultation August 26, 2021 Assessment & Plan (1) Cellulitis: Discussed case with Dr. Baker seen the patient. Imaging study showed no definitive abscess in the area of fluctuance, confirms Cellulitis. Continue IV antibiotics and care per medicine service. If patient does experience an opening or drainage from the area, the wound may be treated with packing and a dressing over it. Orthopedically the patient is WBAT . If abscess develops may require I&D, but not needed at this time. Present on Admission?: Yes Supervising Physician Co-Signing Physician Notes I, Dr. Baker, agree with the above findings and plan of care which I discussed with my PA. Patient may also start warm soaks with 50 : 50 mix of warm Normal Saline and Peroxide BID. History of Present Illness Reason for Consultation: Right lower leg cellulitis Requesting Physician: Dr. Kelechi Baker Attending Physician: Reji Laurent History of Present Illness This 65-year-old male from [facility] was seen in consultation this afternoon. Patient states that he was scheduled to have a EGD and colonoscopy this morning but states that his case was canceled because he has an infection in his lower leg. He states that the redness has been there since this weekend. He states that when he first arrived, someone squeezed it and took a sample and now he is on IV antibiotics. Patient denies fever, chills, sweats, lethargy, numbness or tingling in his right lower extremity, chest pain, shortness of breath. He does have a history of type 2 diabetes and has had a history of MRSA in the past. Allergies Allergy/AdvReac Type Severity Reaction Status Date / Time eggplant Allergy Verified 08/24/21 16:38 sodium chloride Allergy Unknown Verified 08/23/21 18:15 [From [place] Nasal] Home Medications Medication Instructions Recorded Confirmed Type insulin human U-100 NPH-regulr 40 unit SUBCUT QPM 08/13/20 08/23/21 History 70-30 mix 100 unit/mL subcutaneous susp (Novolin 70/30 U-100 Insulin) insulin human U-100 NPH-regulr 45 unit SUBCUT QAM 08/13/20 08/23/21 History 70-30 mix 100 unit/mL subcutaneous susp (Novolin 70/30 U-100 Insulin) rosuvastatin 40 mg tablet 40 mg PO DAILY 08/13/20 08/23/21 History amiodarone 200 mg tablet 200 mg PO BID 02/27/21 08/23/21 History aspirin 81 mg tablet,delayed 81 mg PO DAILY 02/27/21 08/23/21 History release (Aspirin Low Dose) losartan 25 mg tablet 25 mg PO DAILY 02/27/21 08/23/21 History metoprolol tartrate 25 mg tablet 25 mg PO BID 02/27/21 08/23/21 History apixaban 5 mg tablet 5 mg PO BID 08/23/21 08/23/21 History insulin regular human 100 unit/mL 1 sliding scale dose SUBCUT 08/23/21 08/23/21 History injection solution cartridge USEASDIRECTD sulfamethoxazole 800 1 tab PO BID 08/23/21 08/23/21 History mg-trimethoprim 160 mg tablet (Bactrim DS) Patient History Medical History Cellulitis Diabetes Diabetes mellitus type 2 in obese Endocarditis Gangrene HTN (hypertension) Hyperlipidemia Paroxysmal A-fib Sepsis Umbilical hernia Surgical History History of Diann's gangrene With debridement x2 in 2019 at [facility] Family History Other Family history non-contributory Social History Smoking Status: Unknown if ever smoked Hx Alcohol Use: No Hx Substance Use: No Preferred Language: Lithuanian Communication Ability: Effective [place] Required: No Beliefs That Will Affect Care: None marital status: Single Current Living Situation: Other Current Living Situation Comment: [facility] current occupation: Incarcerated Other Information That Helps Us Care for You: No Feels Safe at Home: Yes Assistive Devices: None Review of Systems Review of Systems: All systems reviewed & are unremarkable except as noted in Subjective Physical Exam Physical Exam: Right lower leg: Patient has a 10 cm x 6 cm area of erythema to the anterolateral aspect of the mid right lower leg with a central area of fluctuance approximately 2 cm x 2 cm with multiple purulent areas. There is no opening or drainage appreciated. Erythematous area is warm to touch. Fluctuant area is tender to palpation. There is a border around this area marked with a skin marker. Patient has full range of motion in his knee. Appropriate dexterity of his digits. He is able to dorsi and plantarflex actively and has no pain with resistance. He has full range of motion of his ankle. His calf soft supple nontender to palpation. There are no lesions the plantar surface of his foot. His peripheral pulses 2+. Capillary fill is less than 2 seconds. Results & Data ([facility]) Vital Signs (Past 12 Hours) Vital Signs Temp Pulse Pulse Resp BP Pulse Ox 08/26/21 11:43 36.7 C 73 18 122/74 96 08/26/21 07:47 36.7 C 68 18 137/73 95 08/26/21 07:27 78 Laboratory Results 08/26/21 08/26/21 08/26/21 Range/Units 16:34 11:53 07:59 WBC (4.8-10.8) K/uL RBC (4.7-6.1) M/uL Hgb (14.0-18.0) g/dL Hct (42-52) % MCV (80-100) fL MCH (25-34) pg MCHC (32-36) g/dL RDW Std Deviation (36.4-46.3) fL RDW Coeff of Sharad (11.5-14.5) % Plt Count (130-400) K/uL MPV (7.4-10.4) fL Immature Gran % (Auto) % Neut % (Auto) % Lymph % (Auto) % [place] % (Auto) % Eos % (Auto) % Baso % (Auto) % Neut # (Auto) (1.4-6.5) K/uL Lymph # (Auto) (1.2-3.4) K/uL [place] # (Auto) (0.11-0.59) K/uL Eos # (Auto) (0-0.5) K/uL Baso # (Auto) (0-0.2) K/uL Immature Gran # (Auto) (0.00-0.02) K/uL Sodium (136-145) mmol/L Potassium (3.5-5.1) mmol/L Chloride (98-107) mmol/L Carbon Dioxide (21-32) mmol/L Anion Gap (3-11) BUN (7-18) mg/dl Creatinine (0.6-1.4) mg/dl Est Cr Clr Drug Dosing ml/min Est GFR ( Amer) ml/min Est GFR (Non-Af Amer) ml/min BUN/Creatinine Ratio (10-20) Glucose (70-99) mg/dl POC Glucose 106 H 200 H 143 H (70-99) mg/dl Calcium (8.5-10.1) mg/dl Total Bilirubin (0.2-1) mg/dl AST (15-37) U/L ALT (12-78) U/L Alkaline Phosphatase (45-117) U/L Total Protein (6.4-8.2) gm/dl Albumin (3.4-5.0) gm/dl Globulin (2.5-4.0) gm/dl Albumin/Globulin Ratio (0.9-2) Ur Random Creatinine mg/dl Ur Random Sodium mmol/L 08/26/21 08/26/21 08/25/21 Range/Units 06:17 06:17 20:50 WBC 9.27 (4.8-10.8) K/uL RBC 3.17 L (4.7-6.1) M/uL Hgb 9.3 L (14.0-18.0) g/dL Hct 28.6 L (42-52) % MCV 90.2 (80-100) fL MCH 29.3 (25-34) pg MCHC 32.5 (32-36) g/dL RDW Std Deviation 59.3 H (36.4-46.3) fL RDW Coeff of Sharad 18.2 H (11.5-14.5) % Plt Count 193 (130-400) K/uL MPV 9.1 (7.4-10.4) fL Immature Gran % (Auto) 0.2 % Neut % (Auto) 73.6 % Lymph % (Auto) 12.1 % [place] % (Auto) 12.2 % Eos % (Auto) 1.7 % Baso % (Auto) 0.2 % Neut # (Auto) 6.82 H (1.4-6.5) K/uL Lymph # (Auto) 1.12 L (1.2-3.4) K/uL [place] # (Auto) 1.13 H (0.11-0.59) K/uL Eos # (Auto) 0.16 (0-0.5) K/uL Baso # (Auto) 0.02 (0-0.2) K/uL Immature Gran # (Auto) 0.02 (0.00-0.02) K/uL Sodium 141 (136-145) mmol/L Potassium 3.9 (3.5-5.1) mmol/L Chloride 107 (98-107) mmol/L Carbon Dioxide 24 (21-32) mmol/L Anion Gap 10.0 (3-11) BUN 56 H (7-18) mg/dl Creatinine 4.15 H (0.6-1.4) mg/dl Est Cr Clr Drug Dosing 20.1 ml/min Est GFR ( Amer) 16.5 ml/min Est GFR (Non-Af Amer) 14.3 ml/min BUN/Creatinine Ratio 13.4 (10-20) Glucose 125 H (70-99) mg/dl POC Glucose (70-99) mg/dl Calcium 8.3 L (8.5-10.1) mg/dl Total Bilirubin 0.4 (0.2-1) mg/dl AST 49 H (15-37) U/L ALT 76 (12-78) U/L Alkaline Phosphatase 73 (45-117) U/L Total Protein 6.4 (6.4-8.2) gm/dl Albumin 2.4 L (3.4-5.0) gm/dl Globulin 4.0 (2.5-4.0) gm/dl Albumin/Globulin Ratio 0.6 L (0.9-2) Ur Random Creatinine 33.8 mg/dl Ur Random Sodium 86 mmol/L 08/25/21 08/25/21 Range/Units 20:01 16:54 WBC (4.8-10.8) K/uL RBC (4.7-6.1) M/uL Hgb (14.0-18.0) g/dL Hct (42-52) % MCV (80-100) fL MCH (25-34) pg MCHC (32-36) g/dL RDW Std Deviation (36.4-46.3) fL RDW Coeff of Sharad (11.5-14.5) % Plt Count (130-400) K/uL MPV (7.4-10.4) fL Immature Gran % (Auto) % Neut % (Auto) % Lymph % (Auto) % [place] % (Auto) % Eos % (Auto) % Baso % (Auto) % Neut # (Auto) (1.4-6.5) K/uL Lymph # (Auto) (1.2-3.4) K/uL [place] # (Auto) (0.11-0.59) K/uL Eos # (Auto) (0-0.5) K/uL Baso # (Auto) (0-0.2) K/uL Immature Gran # (Auto) (0.00-0.02) K/uL Sodium (136-145) mmol/L Potassium (3.5-5.1) mmol/L Chloride (98-107) mmol/L Carbon Dioxide (21-32) mmol/L Anion Gap (3-11) BUN (7-18) mg/dl Creatinine (0.6-1.4) mg/dl Est Cr Clr Drug Dosing ml/min Est GFR ( Amer) ml/min Est GFR (Non-Af Amer) ml/min BUN/Creatinine Ratio (10-20) Glucose (70-99) mg/dl POC Glucose 162 H 142 H (70-99) mg/dl Calcium (8.5-10.1) mg/dl Total Bilirubin (0.2-1) mg/dl AST (15-37) U/L ALT (12-78) U/L Alkaline Phosphatase (45-117) U/L Total Protein (6.4-8.2) gm/dl Albumin (3.4-5.0) gm/dl Globulin (2.5-4.0) gm/dl Albumin/Globulin Ratio (0.9-2) Ur Random Creatinine mg/dl Ur Random Sodium mmol/L Diagnostic Findings Laboratory Results WBC 9.27 K/uL (4.8-10.8) 08/26/21 06:17 RBC 3.17 M/uL (4.7-6.1) L 08/26/21 06:17 Hgb 9.3 g/dL (14.0-18.0) L 08/26/21 06:17 Hct 28.6 % (42-52) L 08/26/21 06:17 MCV 90.2 fL (80-100) 08/26/21 06:17 MCH 29.3 pg (25-34) 08/26/21 06:17 MCHC 32.5 g/dL (32-36) 08/26/21 06:17 RDW Std Deviation 59.3 fL (36.4-46.3) H 08/26/21 06:17 RDW Coeff of Sharad 18.2 % (11.5-14.5) H 08/26/21 06:17 Plt Count 193 K/uL (130-400) 08/26/21 06:17 MPV 9.1 fL (7.4-10.4) 08/26/21 06:17 Immature Gran % (Auto) 0.2 % 08/26/21 06:17 Neut % (Auto) 73.6 % 08/26/21 06:17 Lymph % (Auto) 12.1 % 08/26/21 06:17 [place] % (Auto) 12.2 % 08/26/21 06:17 Eos % (Auto) 1.7 % 08/26/21 06:17 Baso % (Auto) 0.2 % 08/26/21 06:17 Neut # (Auto) 6.82 K/uL (1.4-6.5) H 08/26/21 06:17 Lymph # (Auto) 1.12 K/uL (1.2-3.4) L 08/26/21 06:17 [place] # (Auto) 1.13 K/uL (0.11-0.59) H 08/26/21 06:17 Eos # (Auto) 0.16 K/uL (0-0.5) 08/26/21 06:17 Baso # (Auto) 0.02 K/uL (0-0.2) 08/26/21 06:17 Immature Gran # (Auto) 0.02 K/uL (0.00-0.02) 08/26/21 06:17 Absolute Nucleated RBC 0.02 K/uL (0-0) H 08/23/21 16:43 Nucleated RBC % (auto) 0.2 % 08/23/21 16:43 Polychromasia 1+ 08/24/21 07:28 Basophilic Stippling 1+ 08/24/21 07:28 Anisocytosis Present 08/24/21 07:28 PT 11.0 Seconds (9.0-12.0) 08/25/21 07:03 INR 1.1 (0.9-1.1) 08/25/21 07:03 APTT 25.5 Seconds (21.0-31.0) 08/23/21 16:43 PTT Ratio 1.0 08/23/21 16:43 Sodium 141 mmol/L (136-145) 08/26/21 06:17 Potassium 3.9 mmol/L (3.5-5.1) 08/26/21 06:17 Chloride 107 mmol/L (98-107) 08/26/21 06:17 Carbon Dioxide 24 mmol/L (21-32) 08/26/21 06:17 Anion Gap 10.0 (3-11) 08/26/21 06:17 BUN 56 mg/dl (7-18) H 08/26/21 06:17 Creatinine 4.15 mg/dl (0.6-1.4) H 08/26/21 06:17 Est Cr Clr Drug Dosing 20.1 ml/min 08/26/21 06:17 Est GFR ( Amer) 16.5 ml/min 08/26/21 06:17 Est GFR (Non-Af Amer) 14.3 ml/min 08/26/21 06:17 BUN/Creatinine Ratio 13.4 (10-20) 08/26/21 06:17 Glucose 125 mg/dl (70-99) H 08/26/21 06:17 POC Glucose 200 mg/dl (70-99) H 08/26/21 11:53 Lactate 1.7 mmol/L (0.4-2.0) 08/23/21 16:43 Calcium 8.3 mg/dl (8.5-10.1) L 08/26/21 06:17 Magnesium 2.2 mg/dl (1.8-2.4) 08/25/21 07:03 Total Bilirubin 0.4 mg/dl (0.2-1) 08/26/21 06:17 AST 49 U/L (15-37) H 08/26/21 06:17 ALT 76 U/L (12-78) 08/26/21 06:17 Alkaline Phosphatase 73 U/L (45-117) 08/26/21 06:17 Total Protein 6.4 gm/dl (6.4-8.2) 08/26/21 06:17 Albumin 2.4 gm/dl (3.4-5.0) L 08/26/21 06:17 Globulin 4.0 gm/dl (2.5-4.0) 08/26/21 06:17 Albumin/Globulin Ratio 0.6 (0.9-2) L 08/26/21 06:17 Procalcitonin 0.12 ng/ml (0-0.5) 08/23/21 16:43 Urine Color Yellow 08/23/21 18:59 Urine Appearance Clear (Clear) 08/23/21 18:59 Urine pH 7.5 (4.5-7.5) 08/23/21 18:59 Ur Specific [place] 1.014 (1.000-1.030) 08/23/21 18:59 Urine Protein 2+ (Negative) H 08/23/21 18:59 Urine Glucose (UA) Negative (Negative) 08/23/21 18:59 Urine Ketones Negative (Negative) 08/23/21 18:59 Urine Blood 1+ (Negative) H 08/23/21 18:59 Urine Nitrite Negative (Negative) 08/23/21 18:59 Urine Bilirubin Negative (Negative) 08/23/21 18:59 Urine Urobilinogen Negative (Negative) 08/23/21 18:59 Ur Leukocyte Esterase Negative (Negative) 08/23/21 18:59 Urine WBC (Auto) 1-5 /hpf (0-5) 08/23/21 18:59 Urine RBC (Auto) 0-4 /hpf (0-4) 08/23/21 18:59 U Hyaline Cast (Auto) 1-5 /lpf (0-5) 08/23/21 18:59 U Epithel Cells (Auto) 20-30 /lpf (0-5) H 08/23/21 18:59 Urine Bacteria (Auto) Negative (Negative) 08/23/21 18:59 Ur Random Creatinine 33.8 mg/dl 08/25/21 20:50 Ur Random Sodium 86 mmol/L 08/25/21 20:50 COVID-19 Eval Order Covid19 at [facility] 08/23/21 18:12 SARS-CoV-2 (PCR) NEGATIVE (Negative) 08/23/21 18:12 Blood Type O Negative 08/23/21 16:43 Antibody Screen NEGATIVE 08/23/21 16:43 Crossmatch See Detail 08/23/21 16:43 Impressions Chest X-Ray 08/23/21 16:09 XR chest 1V portable HISTORY: 65 years-old Male SEPSIS acute sepsis COMPARISON: Chest radiograph 08/13/2020 TECHNIQUE: Portable AP view of the chest FINDINGS: Cardiac silhouette is enlarged. No pneumothorax, pleural effusion, airspace consolidation or overt pulmonary edema. No acute fracture. IMPRESSION: Cardiomegaly without acute process. ACT 112: Negative or not required by law. The above report was generated using voice recognition software. It may contain grammatical, syntax or spelling errors. Electronically signed by: Yang Cooper M.D. 08/23/2021 4:[address] 08/24/21 09:38 CT tib/fib RT wo con INDICATION: Pain and swelling, concern for abscess TECHNIQUE: Multidetector row helical CT of the right tibia and fibula was performed without intravenous contrast. Coronal and sagittal reformations were obtained. Automated dose lowering techniques and/or adjustment according to patient size were utilized for this examination. Comparison: None available at the time of this dictation. FINDINGS: The osseous structures are without fracture or dislocation. No joint effusion is seen. The joint spaces are maintained. Varices are noted in the soft tissues of the calf. There is distal soft tissue stranding but no drainable fluid collection is seen. 3 vessel atherosclerotic disease is noted. IMPRESSION: No evidence of drainable abscess. Soft tissue stranding and skin thickening in the posterior medial soft tissues may represent cellulitis, correlation with clinical exam is recommended. Diffuse varices. ACT 112: Negative or not required by law. Electronically signed by: Saul Porter M.D. 08/24/2021 10:29 AM Lower Extremity MRI 08/25/21 08:34 MR lower leg RT wo con HISTORY: Right leg swelling. presumed abscess right lower extremity. cant have contrast TECHNIQUE: Multiplanar multisequence MRI of the right lower leg was performed without contrast according to standard departmental protocol. COMPARISON STUDY: Right lower leg CT 08/24/2021. FINDINGS: Extensive subcutaneous edema seen throughout the right lower leg most pronounced distally. Multiple superficial varicosities seen within the medial aspect of the lower leg. 1 cm subcutaneous focal fluid collection within the mid right lower leg laterally best seen on axial image 31. This may represent a small subcutaneous abscess. There is mild soft tissue edema surrounding the mid fibula. Edema appears to be extending from the superficial abscess. Normal marrow signal intensity seen throughout the tibia and fibula. No evidence for osteomyelitis. No fracture or dislocation within the right lower leg. IMPRESSION: 1. There is a 1 cm subcutaneous focal fluid collection within the mid right lower leg laterally as described above. This favors a small subcutaneous abscess. 2. There is also mild soft tissue edema surrounding the mid fibula at the level of the suspected small abscess. This appears to extend from the superficial abscess and suggests an associated mild myositis/fasciitis. 3. Extensive subcutaneous edema within the right lower leg. 4. No abnormal signal intensity within the tibia or fibula to suggest an osteomyelitis. ACT 112: Negative or not required by law. Electronically signed by: Leo Mckeon M.D. 08/25/2021 4:45 PM
--- NOTE | 2021-08-26 22:02 | Hospitalist Progress Note ---
Date of Service August 26, 2021 Assessment & Plan (1) Cellulitis: Plan: - appears to clinically have a small abscess as well (over anterior santiago). I was able to squeeze this and facilitate passing of purulent fluid. - CT done showing no evidence of abscess - The area around this is still indurate. ? communicating abscess just lateral to where area was drained. Will obtain an MRI - culture obtained upon admission from crack noted in heel but this does not appear to be clinically infected - Repeat culture obtained from anterior santiago wound with prelim growth of Staph species. Patient has h/o MRSA. Continue Dapto with final culture data to guide treatment - blood cultures showing NGTD will consult ortho. Awaiting input. (2) Blood loss anemia: Plan: - suspect UGI bleed: melanotic stools on Eliquis and ASA (A.Fib), positive Hemoccult - ACT and ASA remain on hold - s/p transfusion 4 units packed cells total - Was marginally hypotensive. This has stabilized with improvement in H/H - Epogen and Venofer given by Nephro (which is also on board). Appreciate recommendations - I do not see that iron studies/retic count/erythropoietin level done but patient already received blood and results will be skewed. 1 dose venofer ordered - GI consulted for endoscopy--? Plan is to pursue Upper and lower endoscopy per GI. Initially plan was for Thursday but with persistent A/CKD-- this has been moved until Thursday as I an concerned that the prep will only exacerbate his acute renal impairment. - Continue PPI - monitor labs closely to trend (3) TATE (acute kidney injury): Plan: - Acute on Chronic renal impairment - likely multifactorial - patient limited historian but Bactrim noted to be on medlist (reports believes to have been on this for long time from old wound on back but documentation states was started on Thursday) - WOULD AVOID BACTRIM given h/o CXR (baseline Cr. 2.5-2.7) - In addition, may have component of ATN d/t hypoperfusion from anemia/hypotension). Get urine lytes to differentiate FENa - No significant change in renal function compared to yesterday. - normosol IVF on board. Goal is for positive fluid balance (again, reason for holding of on c-scope for now) - monitor renal function closely - hold nephrotoxic meds (ARB) and renally adjust when appropriate - nephro consulted. appreciate recommendations - currently, patient with NORMAL anion Gap/serum bicarb and no electrolyte abnormalities. good urinary output - refused JESSICA CATHETER (4) Diabetes mellitus type 2 in obese: Plan: -Patient ordered Lantus and NovoLog. Continue this with close blood sugar monitoring (BS acceptable this am at 107) (5) HTN (hypertension): Plan: -Antihypertensive medications currently on hold given marginal hypotension upfront-- likely related to anemia. -BP currently stable at 125/71. HR 68. Reassess tomorrow with likely resumption of antihypertensive medications (at least the metoprolol. Patient chronically on losartan; however, this may need stopped all together with the renal impairment) (6) Paroxysmal A-fib: Plan: -Currently in a normal sinus rhythm with controlled ventricular rate -Amiodarone has been continued -Eliquis on hold given melanotic stools and hemoglobin of 5.6 upon presentation with presumed UGI bleed Plan: - continue IV hydration - continue abx therapy - plan for Upper and lower endoscopy on Thursday (Prep will need ordered for Thursday) Admission and Anticipated Discharge Date Admission Date: August 23, 2021 Subjective Patient reports NO NEW SYMPTOMS. His leg is still bothering him. Review of Systems Review of Systems: All systems reviewed & are unremarkable except as noted in HPI & below Physical Exam Physical Exam: General: Resting comfortably in his hospital bed. Does not appear ill or toxic. NAD. HEENT: Head is AT/NC buccal mucosa is moist and pink Neck: No JVD. Negative hepatojugular reflex Cardiac: Appears RRR but distant Lungs: CTA without W/R/R Abdomen: Normoactive X4. Soft and nontender in all quadrants. Extremities: Area of erythema on the anterior santiago appears similar to yesterday. No drainage today. Neuro: A&O X4 cranial nerves II through XII are grossly intact no focal neuro deficits Skin: See above Psych: Appropriate affect pleasant and cooperative Results & Data Results & Data ([facility]) Vital Signs (Past 12 Hours) Vital Signs Temp Pulse Pulse Resp BP BP Pulse Ox 08/26/21 20:00 36.9 C 71 18 131/74 95 08/26/21 15:24 36.9 C 72 18 131/82 95 08/26/21 15:21 72 08/26/21 11:43 36.7 C 73 18 122/74 96 PG Care Time/CCT Total # of Minutes Spent Total Time Spent with Patient: Total time spent is greater than 50% in co ordination of care (as documented) at patient's floor/unit and/or counseling patient: Coding Level of Care Code 77747 Subseq Hosp Care Lvl 2 Diagnoses Cellulitis L03.90 Blood loss anemia D50.0 TATE (acute kidney injury) N17.9 Diabetes mellitus type 2 in obese E11.69; E66.9 HTN (hypertension) I10 Hypertension type: essential hypertension Paroxysmal A-fib I48.0 (1) HTN (hypertension) Hypertension type: essential hypertension Qualified Code(s): I10 - Essential (primary) hypertension
[2021-08-27] MEDS: NORMOSOL-R 1,000 ML IV SCH ×3 (01:34→22:43)
[2021-08-27 08:38] LABS: Creatinine Clr Calc Pharmacy 23.2 ml/min; Est GFR (African American) 19.6 ml/min; Est GFR (Non-African American) 16.9 ml/min
[2021-08-27] MEDS: INSULIN GLARGINE SOLOSTAR 100 UNITS/ML 3 ML PEN SC SCH ×2 (09:08→21:23)
[2021-08-27] MEDS: INSULIN ASPART 100 UNITS/ML 3 ML PEN SC SCH ×4 (09:09→21:24)
[2021-08-27] MEDS ORDERED: INFLUENZA VIRUS QUAD VACCINE 0.5 ML SYR IM ONE (09:45)
--- NOTE | 2021-08-27 10:22 | Nephrology Progress Note ---
Date of Service August 27, 2021 Assessment & Plan (1) TATE (acute kidney injury): Plan: Non-oliguric. Electrolytes acceptable. Clinical presentation consistent with prerenal and hemodynamically mediated TATE with ATN and recent Bactrim. Creatinine continues to demonstrate early stages of renal recovery. No indication for dialysis at this time. Urine microscopy acellular. Medications appropriate for kidney function. Rosuvastatin held. Losartan held. Maintain positive fluid balance. Hgb goal >8. Repeat metabolic profile tomorrow AM. (2) CKD stage 4 due to type 2 diabetes mellitus: Plan: Creatinine 2.5-2.7 mg/dL during prior admission. UA +protein. Consistent with DKD. (3) Blood loss anemia: Plan: Hgb goal >8 in setting of TATE. Epogen 4000 units and 200 mg IV iron provided 08/25. (4) Cellulitis: Plan: BActrim stopped. Started on Dapto. Monitor CK. Admission and Anticipated Discharge Date Admission Date: August 23, 2021 Subjective No acute events overnight. No complaints this AM. Review of Systems Review of Systems: All systems reviewed & are unremarkable except as noted in HPI & below Physical Exam Constitutional: well developed; no acute distress Eyes: no scleral abnormality and no corneal abnormality ENMT: Mouth: no oral mucosal abnormality and oral mucous membranes not dry Neck: normal visual inspection and trachea midline Respiratory: normal respiratory effort Auscultation: lungs clear to auscultation bilaterally Cardiovascular: Rate/Rhythm: regular rate Heart Sounds: normal S1 and normal S2 Extremities: no edema Musculoskeletal: Extremities: no cyanosis and no clubbing Skin: normal turgor, + induration and + subcutaneous nodules (sabaceous abscess on lower right extremity) Neurologic: Motor/Sensory: no tremor and no asterixis Psychiatric: Orientation: alert and oriented x 3 Results & Data ([facility]) Vital Signs (Past 12 Hours) Vital Signs Temp Pulse Pulse Resp BP BP Pulse Ox 08/27/21 07:55 36.9 C 65 20 151/80 H 97 08/27/21 07:23 69 08/27/21 05:24 70 08/27/21 05:03 36.9 C 73 18 113/49 L 97 08/26/21 23:34 36.8 C 72 18 148/84 H 96 Laboratory Results Laboratory Results - last 24 hr 08/26/21 08/26/21 08/26/21 11:53 16:34 20:48 Creatinine Est Cr Clr Drug Dosing Est GFR ( Amer) Est GFR (Non-Af Amer) POC Glucose 200 H 106 H 166 H 08/27/21 08/27/21 07:45 07:58 Creatinine 3.60 H D Est Cr Clr Drug Dosing 23.2 Est GFR ( Amer) 19.6 Est GFR (Non-Af Amer) 16.9 POC Glucose 125 H PG Care Time/CCT Total # of Minutes Spent Total Time Spent with Patient: Total time spent is greater than 50% in coordination of care (as documented) at patient's floor/unit and/or counseling patient: Coding Level of Care Code 20012 Subseq Hosp Care Lvl 3 Diagnoses TATE (acute kidney injury) N17.9 CKD stage 4 due to type 2 diabetes mellitus E11.22; N18.4 Blood loss anemia D50.0 Cellulitis L03.90
[2021-08-27] MEDS: PANTOprazole 40 MG in SYRINGE 0 ML IV SCH ×2 (10:26→21:17)
--- NOTE | 2021-08-27 16:12 | Orthopedic Progress Note ---
Date of Service August 27, 2021 Assessment & Plan (1) Cellulitis: Plan: Imaging study showed no definitive abscess in the area of fluctuance, confirms Cellulitis. Continue IV antibiotics and care per medicine service. If patient does experience an opening or drainage from the area, the wound may be treated with packing and a dressing over it. Continue peroxide soaks. Orthopedically the patient is WBAT . If abscess develops may require I&D, but not needed at this time. Present on Admission?: Yes Admission and Anticipated Discharge Date Admission Date: August 23, 2021 Subjective No changes with RLE Review of Systems Review of Systems: All systems reviewed & are unremarkable except as noted in HPI & below Physical Exam Physical Exam: RLE: Neurovascularly unchanged. Erythema is slightly , but encompassing slightly larger area. No pustules. Central portion laterally less than 1 cm raised area approximately quarter sized. Unable to express any fluid or drainage. Calf soft and non-tender. Results & Data ([facility]) Vital Signs (Past 12 Hours) Vital Signs Temp Pulse Pulse Resp BP BP Pulse Ox 08/27/21 15:35 62 08/27/21 15:19 37.0 C 69 20 138/82 95 08/27/21 11:33 36.8 C 73 20 128/69 97 08/27/21 07:55 36.9 C 65 20 151/80 H 97 08/27/21 07:23 69 08/27/21 05:24 70 08/27/21 05:03 36.9 C 73 18 113/49 L 97 Laboratory Results 08/27/21 08/27/21 08/27/21 Range/Units 11:12 07:58 07:45 Creatinine 3.60 H D (0.6-1.4) mg/dl Est Cr Clr Drug Dosing 23.2 ml/min Est GFR ( Amer) 19.6 ml/min Est GFR (Non-Af Amer) 16.9 ml/min POC Glucose 188 H 125 H (70-99) mg/dl 08/26/21 08/26/21 Range/Units 20:48 16:34 Creatinine (0.6-1.4) mg/dl Est Cr Clr Drug Dosing ml/min Est GFR ( Amer) ml/min Est GFR (Non-Af Amer) ml/min POC Glucose 166 H 106 H (70-99) mg/dl
--- NOTE | 2021-08-27 20:15 | Hospitalist Progress Note ---
Date of Service August 27, 2021 Assessment & Plan (1) Cellulitis: Plan: - appears to clinically have a small abscess as well (over anterior santiago). I was able to squeeze this and facilitate passing of purulent fluid. - CT done showing no evidence of abscess, however, - On MRI: There is a 1 cm subcutaneous focal fluid collection within the mid right lower leg laterally as described above. This favors a small subcutaneous abscess - The area around this is still indurate. ? communicating abscess just lateral to where area was drained. - culture obtained upon admission from crack noted in heel but this does not appear to be clinically infected - Repeat culture obtained from anterior santiago wound with prelim growth of Staph species. Patient has h/o MRSA. Continue Dapto with final culture data to guide treatment - blood cultures showing NGTD ortho evaluated patient and do not feel patient has an abscess at this time. will continue to monitor. (2) Blood loss anemia: Plan: - suspect UGI bleed: melanotic stools on Eliquis and ASA (A.Fib), positive Hemoccult - ACT and ASA remain on hold - s/p transfusion 4 units packed cells total - Was marginally hypotensive. This has stabilized with improvement in H/H - Epogen and Venofer given by Nephro (which is also on board). Appreciate recommendations - I do not see that iron studies/retic count/erythropoietin level done but patient already received blood and results will be skewed. 1 dose venofer ordered - GI consulted for endoscopy--? Plan is to pursue Upper and lower endoscopy per GI. Initially plan was for Thursday but with persistent A/CKD-- this has been moved until Thursday as I an concerned that the prep will only exacerbate his acute renal impairment. - Continue PPI - monitor labs closely to trend (3) TATE (acute kidney injury): Plan: - Acute on Chronic renal impairment - likely multifactorial - patient limited historian but Bactrim noted to be on medlist (reports believes to have been on this for long time from old wound on back but documentation states was started on Thursday) - WOULD AVOID BACTRIM given h/o CXR (baseline Cr. 2.5-2.7) - In addition, may have component of ATN d/t hypoperfusion from anemia/hypotension). Get urine lytes to differentiate FENa - No significant change in renal function compared to yesterday. - normosol IVF on board. Goal is for positive fluid balance (again, reason for holding of on c-scope for now) - monitor renal function closely - hold nephrotoxic meds (ARB) and renally adjust when appropriate - nephro consulted. appreciate recommendations - currently, patient with NORMAL anion Gap/serum bicarb and no electrolyte abnormalities. good urinary output - refused JESSICA CATHETER (4) Diabetes mellitus type 2 in obese: Plan: -Patient ordered Lantus and NovoLog. Continue this with close blood sugar monitoring (BS acceptable this am at 107) (5) HTN (hypertension): Plan: -Antihypertensive medications currently on hold given marginal hypotension upfront-- likely related to anemia. -BP currently stable at 125/71. HR 68. Reassess tomorrow with likely resumption of antihypertensive medications (at least the metoprolol. Patient chronically on losartan; however, this may need stopped all together with the renal impairment) (6) Paroxysmal A-fib: Plan: -Currently in a normal sinus rhythm with controlled ventricular rate -Amiodarone has been continued -Eliquis on hold given melanotic stools and hemoglobin of 5.6 upon presentation with presumed UGI bleed Plan: - continue IV hydration - continue abx therapy - plan for Upper and lower endoscopy on Thursday (Prep will need ordered for Thursday) Admission and Anticipated Discharge Date Admission Date: August 23, 2021 Subjective No complaints this AM. Review of Systems Review of Systems: All systems reviewed & are unremarkable except as noted in HPI & below Physical Exam Physical Exam: General: Resting comfortably in his hospital bed. Does not appear ill or toxic. NAD. HEENT: Head is AT/NC buccal mucosa is moist and pink Neck: No JVD. Negative hepatojugular reflex Cardiac: Appears RRR but distant Lungs: CTA without W/R/R Abdomen: Normoactive X4. Soft and nontender in all quadrants. Extremities: Area of erythema on the anterior santiago appears similar to yesterday. Small protuberance. No drainage today. Neuro: A&O X4 cranial nerves II through XII are grossly intact no focal neuro deficits Skin: See above Psych: Appropriate affect pleasant and cooperative Results & Data Results & Data ([facility]) Vital Signs (Past 12 Hours) Vital Signs Temp Pulse Pulse Resp BP Pulse Ox 08/27/21 15:35 62 08/27/21 15:19 37.0 C 69 20 138/82 95 08/27/21 11:33 36.8 C 73 20 128/69 97 PG Care Time/CCT Total # of Minutes Spent Total Time Spent with Patient: Total time spent is greater than 50% in coordination of care (as documented) at patient's floor/unit and/or counseling patient: Coding Level of Care Code 45465 Subseq Hosp Care Lvl 2 Diagnoses Cellulitis L03.90 Blood loss anemia D50.0 TATE (acute kidney injury) N17.9 Diabetes mellitus type 2 in obese E11.69; E66.9 HTN (hypertension) I10 Hypertension type: essential hypertension Paroxysmal A-fib I48.0 Time Spent (min) 25 (1) HTN (hypertension) Hypertension type: essential hypertension Qualified Code(s): I10 - Essential (primary) hypertension
[2021-08-27] MEDS: DAPTOmycin 300 MG in SYRINGE 0 ML IV SCH (21:21)
[2021-08-28 08:45] LABS: Creatinine Clr Calc Pharmacy 24.1 ml/min; Est GFR (African American) 20.4 ml/min; Est GFR (Non-African American) 17.6 ml/min
[2021-08-28] MEDS: NORMOSOL-R 1,000 ML IV SCH ×2 (08:52→19:04)
[2021-08-28] MEDS: INSULIN GLARGINE SOLOSTAR 100 UNITS/ML 3 ML PEN SC SCH ×2 (08:55→20:32)
[2021-08-28] MEDS: PANTOprazole 40 MG in SYRINGE 0 ML IV SCH ×2 (08:55→20:33)
[2021-08-28] MEDS: INSULIN ASPART 100 UNITS/ML 3 ML PEN SC SCH ×4 (08:56→20:33)
--- NOTE | 2021-08-28 09:35 | Gastroenterology Progress Note ---
Date of Service August 28, 2021 Assessment & Plan (1) GI bleed: (2) Blood loss anemia: Plan: Continue Pantoprazole 40 mg IV BID Continue supportive care Bowel prep tonight Proceed with EGD and colonoscopy tomorrow Admission and Anticipated Discharge Date Admission Date: August 23, 2021 Subjective Patient doing well today. He states he continues to have dark stools. He denies any fevers, chills, nausea, vomiting, hematemesis, or hematochezia. He further denies any dysphagia or odynophagia. He denies any abdominal pain. No further complaints. Review of Systems Constitutional: as per Subjective / HPI Eyes: as per Subjective / HPI Ear, Nose, Mouth, Throat: as per Subjective / HPI Respiratory: as per Subjective / HPI Cardiovascular: as per Subjective / HPI Gastrointestinal: as per Subjective / HPI Musculoskeletal: as per Subjective / HPI Integumentary: as per Subjective / HPI Neurologic: as per Subjective / HPI Psychiatric: as per Subjective / HPI Endocrine: as per Subjective / HPI Hematologic / Lymphatic: as per Subjective / HPI Allergy / Immunological: as per Subjective / HPI Physical Exam Constitutional: WD/WN, vitals as above + obese; no acute distress Neck: normal visual inspection Respiratory: normal respiratory effort, lungs clear to auscultation Cardiovascular: RRR, no murmur, no edema Gastrointestinal (Abdomen): normal bowel sounds, soft, nontender, no hepatosplenomegaly Skin: no pallor Psychiatric: A+Ox3, euthymic affect Results & Data Results & Data ([facility]) Vital Signs (Past 12 Hours) Vital Signs Temp Pulse Pulse Resp BP Pulse Ox 08/28/21 07:53 72 08/28/21 07:05 36.6 C 73 18 128/64 97 08/28/21 03:44 37.0 C 73 18 129/55 L 97 08/27/21 23:29 36.7 C 72 18 152/75 H 96 08/27/21 23:10 71 PG Care Time/CCT Total # of Minutes Spent Total Time Spent with Patient: Total time spent is greater than 50% in coordination of care (as documented) at patient's floor/unit and/or counseling patient: Coding Level of Care Code 94817 Subseq Hosp Care Lvl 3 Diagnoses GI bleed K92.2 GI bleed type/associated pathology: unspecified gastrointestinal hemorrhage type Blood loss anemia D50.0 (1) GI bleed GI bleed type/associated pathology: unspecified gastrointestinal hemorrhage type Qualified Code(s): K92.2 - Gastrointestinal hemorrhage, unspecified
[2021-08-28] MEDS ORDERED: XYLOCAINE 1%/SOD BICARB 20 ML VIAL INFIL ONE (09:43)
--- NOTE | 2021-08-28 09:53 | Nephrology Progress Note ---
Date of Service August 28, 2021 Assessment & Plan (1) TATE (acute kidney injury): Plan: Non-oliguric. Electrolytes acceptable. Clinical presentation consistent with prerenal and hemodynamically mediated TATE with ATN and recent Bactrim. Creatinine continues to demonstrate renal recovery. No indication for dialysis at this time. Urine microscopy acellular. Medications appropriate for kidney function. Rosuvastatin held. Losartan held. Maintain positive fluid balance. Hgb goal >8. Repeat metabolic profile tomorrow AM. (2) CKD stage 4 due to type 2 diabetes mellitus: Plan: Creatinine 2.5-2.7 mg/dL during prior admission. UA +protein. Consistent with DKD. (3) Blood loss anemia: Plan: Hgb goal >8 in setting of TATE. Epogen 4000 units and 200 mg IV iron provided 08/25. (4) Cellulitis: Plan: Remains on Dapto. Monitor CK. Admission and Anticipated Discharge Date Admission Date: August 23, 2021 Subjective No acute events overnight. No BM in 24 hours. Denies any abdominal pain. EGD/colonoscopy are not scheduled today. I discussed the plan of care with Dr. Laurent. Mr. Crooks states that overall he feels well. Review of Systems Review of Systems: All systems reviewed & are unremarkable except as noted in HPI & below Physical Exam Constitutional: well developed; no acute distress Eyes: no scleral abnormality and no corneal abnormality ENMT: Mouth: no oral mucosal abnormality and oral mucous membranes not dry Neck: normal visual inspection and trachea midline Respiratory: normal respiratory effort Auscultation: lungs clear to auscultation bilaterally Cardiovascular: Rate/Rhythm: regular rate Heart Sounds: normal S1 and normal S2 Extremities: no edema Musculoskeletal: Extremities: no cyanosis and no clubbing Skin: normal turgor, + induration and + subcutaneous nodules (sabaceous abscess on lower right extremity) Neurologic: Motor/Sensory: no tremor and no asterixis Psychiatric: Orientation: alert and oriented x 3 Results & Data ([facility]) Vital Signs (Past 12 Hours) Vital Signs Temp Pulse Pulse Resp BP Pulse Ox 08/28/21 07:53 72 08/28/21 07:05 36.6 C 73 18 128/64 97 08/28/21 03:44 37.0 C 73 18 129/55 L 97 08/27/21 23:29 36.7 C 72 18 152/75 H 96 08/27/21 23:10 71 Laboratory Results Laboratory Results - last 24 hr 08/27/21 08/27/21 08/27/21 11:12 16:29 20:13 Creatinine Est Cr Clr Drug Dosing Est GFR ( Amer) Est GFR (Non-Af Amer) POC Glucose 188 H 99 139 H 08/28/21 08/28/21 07:30 08:01 Creatinine 3.49 H Est Cr Clr Drug Dosing 24.1 Est GFR ( Amer) 20.4 Est GFR (Non-Af Amer) 17.6 POC Glucose 123 H PG Care Time/CCT Total # of Minutes Spent Total Time Spent with Patient: Total time spent is greater than 50% in coordination of care (as documented) at patient's floor/unit and/or counseling patient: Coding Level of Care Code 11225 Subseq Hosp Care Lvl 3 Diagnoses TATE (acute kidney injury) N17.9 CKD stage 4 due to type 2 diabetes mellitus E11.22; N18.4 Blood loss anemia D50.0 Cellulitis L03.90
--- NOTE | 2021-08-28 15:04 | Procedure Note ---
Procedure Note Date of Service August 28, 2021 Note Bedside I&D of the right lower extremity abscess/cellulitis. A timeout was performed with this patient he verbalized we will proceed with the incision and debridement of the abscess to his right lower extremity. Abscessed lesion measuring 3 cm x 3 cm with central fluctuance over the lateral aspect of the right mid lower leg with surrounding cellulitis was anesthetized with 6 mL of 1% lidocaine solution. Lower extremity from the knee to the foot was prepped and draped in a sterile fashion. Using ethyl chloride spray the skin was anesthetized. I then again cleansed the abscessed area with Betadine and wiped clean with an alcohol soaked 4 x 4 that was also sterile. Using an 11 blade scalpel a 2 cm x 2 cm X was Made over the abscess lesion. Then using a sterile hemostat the loculations were broken internally which allowed for expression of a thick whitish/yellow-colored material. I then manually compressed around the area expressing more of this material. Wound was then irrigated with a copious amount of normal saline solution. Wound was then packed with iodoform gauze, covered with sterile 4 x 4's, ABDs, Kerlix and an Ramon bandage. Patient tolerated procedure very well and experienced no pain during the procedure. Supervising Physician Co-Signing Physician Notes My PA preformed the I&D per my instructions and under my direct supervision. Coding
[2021-08-28] MEDS ORDERED: Nursing to Pharmacy Communication SCH (19:15)
--- NOTE | 2021-08-28 20:57 | Hospitalist Progress Note ---
Date of Service August 28, 2021 Assessment & Plan (1) Cellulitis: Plan: - appears to clinically have a small abscess as well (over anterior santiago). I was able to squeeze this and facilitate passing of purulent fluid. - CT done showing no evidence of abscess, however, - On MRI: There is a 1 cm subcutaneous focal fluid collection within the mid right lower leg laterally as described above. This favors a small subcutaneous abscess - The area around this is still indurate. ? communicating abscess just lateral to where area was drained. - culture obtained upon admission from crack noted in heel but this does not appear to be clinically infected - Repeat culture obtained from anterior santiago wound with prelim growth of Staph species. Patient has h/o MRSA. Continue Dapto with final culture data to guide treatment - blood cultures showing NGTD ortho evaluated patient performed an I and D today. (2) Blood loss anemia: Plan: - suspect UGI bleed: melanotic stools on Eliquis and ASA (A.Fib), positive Hemoccult - ACT and ASA remain on hold - s/p transfusion 4 units packed cells total - Was marginally hypotensive. This has stabilized with improvement in H/H - Epogen and Venofer given by Nephro (which is also on board). Appreciate recommendations - I do not see that iron studies/retic count/erythropoietin level done but patient already received blood and results will be skewed. 1 dose venofer ordered - GI consulted for endoscopy--? Plan is to pursue Upper and lower endoscopy per GI. Initially plan was for Thursday but with persistent A/CKD-- this has been moved until Thursday as I an concerned that the prep will only exacerbate his acute renal impairment. - Continue PPI (3) TATE (acute kidney injury): Plan: - Acute on Chronic renal impairment - likely multifactorial - patient limited historian but Bactrim noted to be on medlist (reports believes to have been on this for long time from old wound on back but documentation states was started on Thursday) - WOULD AVOID BACTRIM given h/o CXR (baseline Cr. 2.5-2.7) - In addition, may have component of ATN d/t hypoperfusion from anemia/hypotension). Get urine lytes to differentiate FENa - No significant change in renal function compared to yesterday. - normosol IVF on board. Goal is for positive fluid balance (again, reason for holding of on c-scope for now) - monitor renal function closely - hold nephrotoxic meds (ARB) and renally adjust when appropriate - nephro consulted. appreciate recommendations - currently, patient with NORMAL anion Gap/serum bicarb and no electrolyte abnormalities. good urinary output - refused JESSICA CATHETER (4) Diabetes mellitus type 2 in obese: Plan: -Patient ordered Lantus and NovoLog. Continue this with close blood sugar monit oring (BS acceptable this am at 107) (5) HTN (hypertension): Plan: -Antihypertensive medications currently on hold given marginal hypotension upfront-- likely related to anemia. -BP currently stable at 125/71. HR 68. Reassess tomorrow with likely resumption of antihypertensive medications (at least the metoprolol. Patient chronically on losartan; however, this may need stopped all together with the renal impairment) (6) Paroxysmal A-fib: Plan: -Currently in a normal sinus rhythm with controlled ventricular rate -Amiodarone has been continued -Eliquis on hold given melanotic stools and hemoglobin of 5.6 upon presentation with presumed UGI bleed Plan: - continue IV hydration - continue abx therapy - plan for Upper and lower endoscopy on Thursday (Prep will need ordered for Thursday) Admission and Anticipated Discharge Date Admission Date: August 23, 2021 Subjective Patient reports no new symptoms today. Review of Systems Review of Systems: All systems reviewed & are unremarkable except as noted in HPI & below Physical Exam Physical Exam: General: Resting comfortably in his hospital bed. Does not appear ill or toxic. NAD. HEENT: Head is AT/NC buccal mucosa is moist and pink Neck: No JVD. Negative hepatojugular reflex Cardiac: Appears RRR but distant Lungs: CTA without W/R/R Abdomen: Normoactive X4. Soft and nontender in all quadrants. Extremities: Area of erythema on the anterior santiago appears similar to yesterday. Neuro: A&O X4 cranial nerves II through XII are grossly intact no focal neuro deficits Skin: See above Psych: Appropriate affect pleasant and cooperative Results & Data Results & Data ([facility]) Vital Signs (Past 12 Hours) Vital Signs Temp Pulse Pulse Resp BP BP Pulse Ox 08/28/21 19:47 36.8 C 67 18 144/74 H 97 08/28/21 15:44 36.9 C 69 18 153/81 H 98 10/06/21 15:15 79 08/28/21 11:55 36.7 C 68 18 143/72 H 96 PG Care Time/CCT Total # of Minutes Spent Total Time Spent with Patient: Total time spent is greater than 50% in coordination of care (as documented) at patient's floor/unit and/or counseling patient: Coding Level of Care Code 51793 Subseq Hosp Care Lvl 2 Diagnoses Cellulitis L03.90 Blood loss anemia D50.0 TATE (acute kidney injury) N17.9 Diabetes mellitus type 2 in obese E11.69; E66.9 HTN (hypertension) I10 Hypertension type: essential hypertension Paroxysmal A-fib I48.0 Time Spent (min) 25 (1) HTN (hypertension) Hypertension type: essential hypertension Qualified Code(s): I10 - Essential (primary) hypertension
[2021-08-28] MEDS ORDERED: LAVAGE SOLUTION 4000ML PO ONE ×2 (22:00→22:45)
[2021-08-29] MEDS ORDERED: Nursing to Pharmacy Communication SCH ×2 (03:45→17:00)
[2021-08-29] MEDS: NORMOSOL-R 1,000 ML IV SCH ×2 (05:18→17:41)
[2021-08-29 06:26] LABS: Est GFR (African American) 26.6 ml/min
[2021-08-29] MEDS: INSULIN ASPART 100 UNITS/ML 3 ML PEN SC SCH ×4 (06:32→21:11)
[2021-08-29] MEDS: PANTOprazole 40 MG in SYRINGE 0 ML IV SCH ×2 (08:09→21:11)
[2021-08-29] MEDS: INSULIN GLARGINE SOLOSTAR 100 UNITS/ML 3 ML PEN SC SCH ×2 (08:10→21:11)
[2021-08-29 09:24] LABS: Albumin Level 2.7 gm/dl (3.4-5.0); Calcium 8.5 mg/dl (8.5-10.1); Creatinine Clr Calc Pharmacy 31.6 ml/min; Est GFR (African American) 28.3 ml/min; Est GFR (Non-African American) 24.4 ml/min; Phosphorus 2.8 mg/dl (2.5-4.9)
--- NOTE | 2021-08-29 09:38 | History & Physical Bridge Note ---
Date of Service August 29, 2021 History & Physical Bridge Note I have examined the patient, reviewed the History & Physical and in the interval since the performance of the History & Physical I have noted the following changes of clinical significance: no changes noted. H/H 9.3/28.6. Patient denies rectal bleeding during bowel preparation. He has completed his bowel prep and denies further issues. Keep NPO & proceed with EGD & colonoscopy today.
--- NOTE | 2021-08-29 10:21 | Nephrology Progress Note ---
Date of Service August 29, 2021 Assessment & Plan (1) TATE (acute kidney injury): Plan: Non-oliguric. Electrolytes acceptable. Clinical presentation consistent with prerenal and hemodynamically mediated TATE with ATN and recent Bactrim. Creatinine continues to demonstrate renal recovery. No indication for dialysis at this time. Urine microscopy acellular. Medications appropriate for kidney function. Rosuvastatin held. Losartan held. Maintain positive fluid balance. Hgb goal >8. Repeat metabolic profile tomorrow AM. (2) CKD stage 4 due to type 2 diabetes mellitus: Plan: Creatinine 2.5-2.7 mg/dL during prior admission. UA +protein. Consistent with DKD. (3) Blood loss anemia: Plan: Hgb goal >8 in setting of TATE. Epogen 4000 units and 200 mg IV iron provided 08/25. (4) Cellulitis: Plan: Remains on Dapto. Monitor CK. Admission and Anticipated Discharge Date Admission Date: August 23, 2021 Subjective No acute events overnight. No complaints this AM. Tolerated prep. Awaiting colonoscopy/EGD. Review of Systems Review of Systems: All systems reviewed & are unremarkable except as noted in HPI & below Physical Exam Constitutional: well developed; no acute distress Eyes: no scleral abnormality and no corneal abnormality ENMT: Mouth: no oral mucosal abnormality and oral mucous membranes not dry Neck: normal visual inspection and trachea midline Respiratory: normal respiratory effort Auscultation: lungs clear to auscultation bilaterally Cardiovascular: Rate/Rhythm: regular rate Heart Sounds: normal S1 and normal S2 Extremities: no edema Musculoskeletal: Extremities: no cyanosis and no clubbing Skin: normal turgor, + induration and + subcutaneous nodules (sabaceous abscess on lower right extremity) Neurologic: Motor/Sensory: no tremor and no asterixis Psychiatric: Orientation: alert and oriented x 3 Results & Data ([facility]) Vital Signs (Past 12 Hours) Vital Signs Temp Pulse Pulse Resp BP Pulse Ox 08/29/21 07:41 36.8 C 72 18 171/89 H 98 08/29/21 07:28 85 08/29/21 04:00 36.9 C 73 18 161/83 H 98 08/29/21 02:16 70 08/29/21 00:18 36.7 C 73 18 159/82 H 97 Laboratory Results Laboratory Results - last 24 hr 08/28/21 08/28/21 08/28/21 11:35 16:25 20:31 Sodium Potassium Chloride Carbon Dioxide Anion Gap BUN Creatinine Est Cr Clr Drug Dosing Est GFR ( Amer) Est GFR (Non-Af Amer) BUN/Creatinine Ratio Glucose POC Glucose 171 H 72 102 H Calcium Phosphorus Albumin 08/29/21 08/29/21 08/29/21 05:41 05:41 06:30 Sodium 142 Potassium 4.0 Chloride 109 H Carbon Dioxide 27 Anion Gap 6.0 BUN 35 H Creatinine 2.80 H D 2.66 H Est Cr Clr Drug Dosing 30.0 31.6 Est GFR ( Amer) 26.6 28.3 Est GFR (Non-Af Amer) 23.0 24.4 BUN/Creatinine Ratio 13.0 Glucose 97 POC Glucose 103 H Calcium 8.5 Phosphorus 2.8 Albumin 2.7 L 08/29/21 07:37 Sodium Potassium Chloride Carbon Dioxide Anion Gap BUN Creatinine Est Cr Clr Drug Dosing Est GFR ( Amer) Est GFR (Non-Af Amer) BUN/Creatinine Ratio Glucose POC Glucose 110 H Calcium Phosphorus Albumin PG Care Time/CCT Total # of Minutes Spent Total Time Spent with Patient: Total time spent is greater than 50% in coordination of care (as documented) at patient's floor/unit and/or counseling patient: Coding Level of Care Code 79961 Subseq Hosp Care Lvl 3 Diagnoses TATE (acute kidney injury) N17.9 CKD stage 4 due to type 2 diabetes mellitus E11.22; N18.4 Blood loss anemia D50.0 Cellulitis L03.90
[2021-08-29] MEDS ORDERED: DAPTOmycin 300 MG in SYRINGE 0 ML IV SCH (11:15)
--- NOTE | 2021-08-29 11:20 | Orthopedic Progress Note ---
Date of Service August 29, 2021 Assessment & Plan (1) Cellulitis: Plan: Day 1 s/p incision and drainage of Right lower extremtiy abscess Continue IV antibiotics and care per medicine service. Continue twice daily dressing changes, irrigation and repacking of wound. Orthopedically the patient is WBAT . Present on Admission?: Yes Admission and Anticipated Discharge Date Admission Date: August 23, 2021 Supervising Physician Co-Signing Physician Notes I, Dr. Baker, saw and examined the patient and agree with the above findings and plan of care. Subjective This 65 yo M is seen this am one day after having a bedside incision and drainage of a right lower extremity abscess with surrounding cellulitis. He states that he had has the dressing changed twice since the procedure was preformed. States that leg is a little tender today but denies CP, SOB, nausea, vomiting, fever, chills, sweats, lethargy or Numbness/Tingling in Rt LE. Review of Systems Review of Systems: All systems reviewed & are unremarkable except as noted in Subjective Physical Exam Physical Exam: Right lower leg: Patient has a 10 cm x 6 cm area of erythema to the anterolateral aspect of the mid right lower leg with a central area that is filled with packing with no active drainage. Erythematous area is warm to touch. Area around the incisions is mildly TTP. Patient has full range of motion in his knee. Appropriate dexterity of his digits. He is able to dorsi and plantarflex actively and has no pain with resistance. He has full range of motion of his ankle. His calf soft supple nontender to palpation. There are no lesions the plantar surface of his foot. His peripheral pulses 2+. Capillary fill is less than 2 seconds. Results & Data ([facility]) Vital Signs (Past 12 Hours) Vital Signs Temp Pulse Pulse Resp BP Pulse Ox 08/29/21 07:41 36.8 C 72 18 171/89 H 98 08/29/21 07:28 85 08/29/21 04:00 36.9 C 73 18 161/83 H 98 08/29/21 02:16 70 08/29/21 00:18 36.7 C 73 18 159/82 H 97 Laboratory Results 08/29/21 08/29/21 08/29/21 Range/Units 07:37 06:30 05:41 Sodium 142 (136-145) mmol/L Potassium 4.0 (3.5-5.1) mmol/L Chloride 109 H (98-107) mmol/L Carbon Dioxide 27 (21-32) mmol/L Anion Gap 6.0 (3-11) BUN 35 H (7-18) mg/dl Creatinine 2.66 H (0.6-1.4) mg/dl Est Cr Clr Drug Dosing 31.6 ml/min Est GFR ( Amer) 28.3 ml/min Est GFR (Non-Af Amer) 24.4 ml/min BUN/Creatinine Ratio 13.0 (10-20) Glucose 97 (70-99) mg/dl POC Glucose 110 H 103 H (70-99) mg/dl Calcium 8.5 (8.5-10.1) mg/dl Phosphorus 2.8 (2.5-4.9) mg/dl Albumin 2.7 L (3.4-5.0) gm/dl 08/29/21 08/28/21 08/28/21 Range/Units 05:41 20:31 16:25 Sodium (136-145) mmol/L Potassium (3.5-5.1) mmol/L Chloride (98-107) mmol/L Carbon Dioxide (21-32) mmol/L Anion Gap (3-11) BUN (7-18) mg/dl Creatinine 2.80 H D (0.6-1.4) mg/dl Est Cr Clr Drug Dosing 30.0 ml/min Est GFR ( Amer) 26.6 ml/min Est GFR (Non-Af Amer) 23.0 ml/min BUN/Creatinine Ratio (10-20) Glucose (70-99) mg/dl POC Glucose 102 H 72 (70-99) mg/dl Calcium (8.5-10.1) mg/dl Phosphorus (2.5-4.9) mg/dl Albumin (3.4-5.0) gm/dl 08/28/21 Range/Units 11:35 Sodium (136-145) mmol/L Potassium (3.5-5.1) mmol/L Chloride (98-107) mmol/L Carbon Dioxide (21-32) mmol/L Anion Gap (3-11) BUN (7-18) mg/dl Creatinine (0.6-1.4) mg/dl Est Cr Clr Drug Dosing ml/min Est GFR ( Amer) ml/min Est GFR (Non-Af Amer) ml/min BUN/Creatinine Ratio (10-20) Glucose (70-99) mg/dl POC Glucose 171 H (70-99) mg/dl Calcium (8.5-10.1) mg/dl Phosphorus (2.5-4.9) mg/dl Albumin (3.4-5.0) gm/dl
--- NOTE | 2021-08-29 14:41 | Anesthesiology Consultation ---
Date of Service August 29, 2021 Assessment & Plan (1) Encounter for pre-operative examination: Chart Review Chart Review: Acceptable Risk for Surgery and Patient NOT seen in Pre Admission Testing Consults Requested none History Surgery Operation Date: 08/26/21 17:00 Proposed Procedures p Colonoscopy EGD Dr. Taiwo Maravilla, Operation Date: 08/29/21 16:30 Proposed Procedures p Colonoscopy EGD Dr. Yaritza Vigil MD Height/Weight Height: 5 ft 4 in Weight: 107.4 kg Allergies Allergy/AdvReac Type Severity Reaction Status Date / Time eggplant Allergy Verified 08/24/21 16:38 sodium chloride Allergy Unknown Verified 08/23/21 18:15 [From [place] Nasal] Medications Home Medications Medication Instructions Recorded Confirmed Last Taken insulin human U-100 NPH-regulr 40 unit SUBCUT QPM 08/13/20 08/23/21 02/26/21 70-30 mix 100 unit/mL subcutaneous susp (Novolin 70/30 U-100 Insulin) insulin human U-100 NPH-regulr 45 unit SUBCUT QA 08/13/20 08/23/21 08/23/21 70-30 mix 100 unit/mL subcutaneous susp (Novolin 70/30 U-100 Insulin) rosuvastatin 40 mg tablet 40 mg PO DAILY 08/13/20 08/23/21 02/26/21 amiodarone 200 mg tablet 200 mg PO BID 02/27/21 08/23/21 02/26/21 aspirin 81 mg tablet,delayed 81 mg PO DAILY 02/27/21 08/23/21 02/26/21 release (Aspirin Low Dose) losartan 25 mg tablet 25 mg PO DAILY 02/27/21 08/23/21 02/26/21 metoprolol tartrate 25 mg tablet 25 mg PO BID 02/27/21 08/23/21 02/26/21 apixaban 5 mg tablet 5 mg PO BID 08/23/21 08/23/21 08/23/21 insulin regular human 100 unit/mL 1 sliding scale dose SUBCUT 08/23/21 08/23/21 08/23/21 06:30 injection solution cartridge USEASDIRECTD 8 sulfamethoxazole 800 1 tab PO BID 08/23/21 08/23/21 Unknown mg-trimethoprim 160 mg tablet (Bactrim DS) Active Medications Generic Name Dose Route Start Last Admin Trade Name Freq PRN Reason Stop Dose Admin Amiodarone HCl 200 mg 08/24/21 00:00 08/24/21 01:24 Amiodarone 200 Mg Tab PO 09/23/21 00:00 200 mg BID ALEXANDER Administration Pantoprazole Sodium 40 mg/ 10 mls @ 5 mls/min 08/24/21 09:00 08/29/21 08:09 Syringe IV 09/23/21 08:59 5 mls/min BID ALEXANDER Administration Parenteral Electrolytes 1,000 mls @ 100 mls/hr 08/24/21 20:00 08/29/21 05:18 Normosol-R IV 09/23/21 19:59 100 mls/hr .Q10H ALEXANDER Administration Insulin Aspart 0 units 08/29/21 06:00 08/29/21 11:54 Insulin Aspart 100 Units/Ml 3 Ml Pen SC 09/28/21 05:59 Not Given Q6 ALEXANDER Insulin Glargine 20 units 08/24/21 00:00 08/29/21 08:10 Insulin Glargine Solostar 100 Units/Ml 3 Ml Pen SC 09/23/21 00:00 20 units BID ALEXANDER Administration Past Medical History Medical History Cellulitis Diabetes Diabetes mellitus type 2 in obese Endocarditis Gangrene HTN (hypertension) Hyperlipidemia Paroxysmal A-fib Sepsis Umbilical hernia Past Family History Family History Other Family history non-contributory Past Surgical History Surgical History History of Diann's gangrene With debridement x2 in 2019 at [facility] Social History Smoking Status: Unknown if ever smoked Hx Alcohol Use: No Hx Substance Use: No Physical Exam Vital Signs Last Vital Signs Temp 36.6 C 08/29/21 11:48 Pulse 71 08/29/21 11:48 Resp 18 08/29/21 11:48 BP 151/74 H 08/29/21 11:48 Pulse Ox 96 08/29/21 11:48 Testing Laboratory Results 08/26/21 06:17 08/29/21 05:41 PT 11.0 Seconds (9.0-12.0) 08/25/21 07:03 INR 1.1 (0.9-1.1) 08/25/21 07:03 APTT 25.5 Seconds (21.0-31.0) 08/23/21 16:43 Urine Color Yellow 08/23/21 18:59 Urine Appearance Clear (Clear) 08/23/21 18:59 Urine pH 7.5 (4.5-7.5) 08/23/21 18:59 Ur Specific [place] 1.014 (1.000-1.030) 08/23/21 18:59 Urine Protein 2+ (Negative) H 08/23/21 18:59 Urine Glucose (UA) Negative (Negative) 08/23/21 18:59 Urine Ketones Negative (Negative) 08/23/21 18:59 Urine Nitrite Negative (Negative) 08/23/21 18:59 Ur Leukocyte Esterase Negative (Negative) 08/23/21 18:59 Urine WBC (Auto) 1-5 /hpf (0-5) 08/23/21 18:59 Urine RBC (Auto) 0-4 /hpf (0-4) 08/23/21 18:59 U Hyaline Cast (Auto) 1-5 /lpf (0-5) 08/23/21 18:59 U Epithel Cells (Auto) 20-30 /lpf (0-5) H 08/23/21 18:59 Urine Bacteria (Auto) Negative (Negative) 08/23/21 18:59 Blood Type O Negative 08/23/21 16:43 Antibody Screen NEGATIVE 08/23/21 16:43 08/23/21 16:43 Aerobic Blood Culture - Final Blood No growth in Aerobic bottle after 5 days. Anaerobic Blood Culture - Final No growth in Anaerobic bottle after 5 days. 08/23/21 Unknown Aerobic Blood Culture - Final Blood No growth in Aerobic bottle after 5 days. Anaerobic Blood Culture - Final No growth in Anaerobic bottle after 5 days. 08/24/21 09:29 Gram Stain - Final Leg,Right Wound Culture - Final Staph aureus MRSA 08/24/21 01:00 Gram Stain - Final Leg Wound Culture - Final Staph aureus MRSA 08/29/21 08/29/21 08/29/21 11:36 07:37 06:30 POC Glucose 105 H 110 H 103 H Electrocardiogram Date: 08/23/21 Findings: + NSR @ (65) Prolonged QT, 1st degree AV block, When compared with ECG of 13-AUG-2020 14:04, Nonspecific T wave abnormality no longer evident in Lateral leads Chest X-Ray Date: 08/23/21 Cardiomegaly without acute process.
[2021-08-29] MEDS ORDERED: PROPOFOL IV EMULSION 10 MG/ML 20 ML VIAL IV ONE ×2 (15:08→16:11)
[2021-08-29] MEDS ORDERED: MIDAZOLAM HCL 1 MG/ML 2ML VIAL ONE (15:08)
[2021-08-29] MEDS ORDERED: LIDOCAINE 2% 2 ML VIAL/AMP(20MG/ML) INFIL ONE (15:08)
[2021-08-29] MEDS ORDERED: ONDANSETRON INJ 2 MG/ML 2 ML VIAL ONE (15:09)
[2021-08-29] MEDS ORDERED: ATROPINE SULFATE 0.1 MG/ML 10ML SYR IV PRN (15:58)
[2021-08-29] MEDS ORDERED: ePHEDrine sulfate 50 MG/ML AMP IV PRN (15:58)
--- NOTE | 2021-08-29 16:28 | GI REPORT ---
Patient Name: Lalit Crooks Procedure Date: 08/29/2021 3:57 PM Date of : 1955 Admit Type: Inpatient Age: 65 Gender: Male Attending MD: Wilfrido Vigil MD Procedure: Upper GI endoscopy Providers: Wilfrido Vigil MD Referring MD: Efrain Young Indications: Iron deficiency anemia Medicines: Monitored Anesthesia Care Complications: No immediate complications. Estimated blood loss: None. Estimated Blood Loss: Estimated blood loss: none. Procedure: Pre-Anesthesia Assessment: - Prior Anticoagulants: The patient has taken no previous anticoagulant or antiplatelet agents. - ASA Grade Assessment: II - A patient with mild systemic disease. After obtaining informed consent, the endoscope was passed under direct vision. Throughout the procedure, the patient's blood pressure, pulse, and oxygen saturations were monitored continuously. The Endoscope was introduced through the mouth, and advanced to the second part of duodenum. The upper GI endoscopy was accomplished without difficulty. The patient tolerated the procedure well. Findings: The examined esophagus was normal. The entire examined stomach was normal. Diffuse mucosal flattening was found in the second portion of the duodenum. Biopsies for histology were taken with a cold forceps for evaluation of celiac disease. Estimated blood loss: none. Impression: - Normal esophagus. - Normal stomach. - Flattened mucosa was found in the duodenum, suspicious for celiac disease. Biopsied. Recommendation: - Return patient to [facility] for ongoing care. - Advance diet as tolerated today. - Await pathology results. Wilfrido Vigil MD 08/29/2021 4:28:16 PM This report has been signed electronically. Note Initiated On: 08/29/2021 3:57 PM Number of Addenda: 0 I attest to the content of the Intraoperative Record and orders documented therein, exceptions below {[id number]}
--- NOTE | 2021-08-29 16:32 | GI REPORT ---
Patient Name: Lalit Crooks Procedure Date: 08/29/2021 3:56 PM Date of : 1955 Admit Type: Inpatient Age: 65 Gender: Male Attending MD: Wilfrido Vigil MD Procedure: Colonoscopy Providers: Wilfrido Vigil MD Referring MD: Efrain Young Indications: Unexplained iron deficiency anemia Medicines: Monitored Anesthesia Care Complications: No immediate complications. Estimated blood loss: None. Estimated Blood Loss: Estimated blood loss: none. Procedure: Pre-Anesthesia Assessment: - Prior Anticoagulants: The patient has taken no previous anticoagulant or antiplatelet agents. - ASA Grade Assessment: II - A patient with mild systemic disease. After I obtained informed consent, the scope was passed under direct vision. Throughout the procedure, the patient's blood pressure, pulse, and oxygen saturations were monitored continuously. The Colonoscope was introduced through the anus and advanced to the cecum, identified by appendiceal orifice and ileocecal valve. The colonoscopy was performed without difficulty. The patient tolerated the procedure well. The quality of the bowel preparation was fair. Findings: A few small localized angioectasias without bleeding were found in the ascending colon. Coagulation for bleeding prevention using argon plasma at 1.2 liters/minute and 30 palafox was successful. The colon (entire examined portion) appeared normal. Biopsies for histology were taken with a cold forceps from the right colon and left colon for evaluation of microscopic colitis. Estimated blood loss: none. Non-bleeding internal hemorrhoids were found. The hemorrhoids were small. Impression: - Preparation of the colon was fair. - A few non-bleeding colonic angioectasias. Treated with argon plasma coagulation (APC). - The entire examined colon is normal. Biopsied. - Non-bleeding internal hemorrhoids. Recommendation: - Return patient to [facility] for ongoing care. - Advance diet as tolerated today. - Await pathology results. Wilfrido Vigil MD 08/29/2021 4:31:56 PM This report has been signed electronically. Note Initiated On: 08/29/2021 3:56 PM Number of Addenda: 0 I attest to the content of the Intraoperative Record and orders documented therein, exceptions below {[id number]}
--- NOTE | 2021-08-29 16:37 | Anesthesiology Progress Note ---
Date of Service August 29, 2021 Anesthesia Post Procedure Vital Signs Vital Signs: Temp Pulse Pulse Resp BP Pulse Ox 08/29/21 16:30 62 16 123/74 99 08/29/21 15:43 36.8 C 78 18 155/74 H 97 08/29/21 15:22 69 08/29/21 15:20 36.8 C 71 18 167/80 H 95 08/29/21 11:48 36.6 C 71 18 151/74 H 96 08/29/21 07:41 36.8 C 72 18 171/89 H 98 08/29/21 07:28 85 08/29/21 04:00 36.9 C 73 18 161/83 H 98 08/29/21 02:16 70 08/29/21 00:18 36.7 C 73 18 159/82 H 97 08/28/21 19:47 36.8 C 67 18 144/74 H 97 Pain Intensity Right Leg: Pain Intensity: 1 Transfer of Care Handoff Completed per policy Notes Mental Status: alert / awake / arousable Patient Amnestic to Procedure: Yes Nausea / Vomiting: adequately controlled Pain: adequately controlled Airway Patency, RR, SpO2: stable & adequate BP & HR: stable & adequate Hydration State: stable & adequate Anesthetic Complications: no major complications apparent
[2021-08-29 19:39] LABS: Hematocrit (blood only) 30.3 % (42-52); Hemoglobin 9.6 g/dL (14.0-18.0); Mean Corpuscular Hemoglobin 29.6 pg (25-34); Mean Corpuscular Hgb Conc 31.7 g/dL (32-36); Mean Corpuscular Volume 93.5 fL (80-100); Mean Platelet Volume 8.8 fL (7.4-10.4); Platelet Count 198 K/uL (130-400); RDW Coefficient of Variation 18.5 % (11.5-14.5); Red Blood Count 3.24 M/uL (4.7-6.1); White Blood Count 6.77 K/uL (4.8-10.8)
[2021-08-29 19:57] LABS: BUN Creatinine Ratio 10.9 (10-20); Calcium 8.3 mg/dl (8.5-10.1); Creatinine Clr Calc Pharmacy 30.5 ml/min; Est GFR (African American) 27.2 ml/min; Est GFR (Non-African American) 23.5 ml/min; Potassium 4.1 mmol/L (3.5-5.1)
--- NOTE | 2021-08-29 20:43 | Hospitalist Progress Note ---
Date of Service August 29, 2021 Assessment & Plan (1) Cellulitis: Plan: - appears to clinically have a small abscess as well (over anterior santiago). I was able to squeeze this and facilitate passing of purulent fluid. - CT done showing no evidence of abscess, however, - On MRI: There is a 1 cm subcutaneous focal fluid collection within the mid right lower leg laterally as described above. This favors a small subcutaneous abscess - The area around this is still indurate. ? communicating abscess just lateral to where area was drained. - culture obtained upon admission from crack noted in heel but this does not appear to be clinically infected - Repeat culture obtained from anterior santiago wound with prelim growth of Staph species. Patient has h/o MRSA. Continue Dapto with final culture data to guide treatment - blood cultures showing NGTD ortho evaluated patient performed an I and D (2) Blood loss anemia: Plan: - suspect UGI bleed: melanotic stools on Eliquis and ASA (A.Fib), positive Hemoccult - ACT and ASA remain on hold - s/p transfusion 4 units packed cells total - Was marginally hypotensive. This has stabilized with improvement in H/H - Epogen and Venofer given by Nephro (which is also on board). Appreciate recommendations - I do not see that iron studies/retic count/erythropoietin level done but patient already received blood and results will be skewed. 1 dose venofer ordered - GI consulted for endoscopy--? Plan is to pursue Upper and lower endoscopy per GI. Initially plan was for Thursday but with persistent A/CKD-- this has been moved until Thursday as I an concerned that the prep will only exacerbate his acute renal impairment. - Continue PPI UPPER GI AND COLONOSCOPY negative. will monitor h and h. if stable will discharge in AM. (3) TATE (acute kidney injury): Plan: - Acute on Chronic renal impairment - likely multifactorial - patient limited historian but Bactrim noted to be on medlist (reports believes to have been on this for long time from old wound on back but documentation states was started on Thursday) - WOULD AVOID BACTRIM given h/o CXR (baseline Cr. 2.5-2.7) - In addition, may have component of ATN d/t hypoperfusion from anemia/hypotension). Get urine lytes to differentiate FENa - No significant change in renal function compared to yesterday. - normosol IVF on board. Goal is for positive fluid balance (again, reason for holding of on c-scope for now) - monitor renal function closely - hold nephrotoxic meds (ARB) and renally adjust when appropriate - nephro consulted. appreciate recommendations - currently, patient with NORMAL anion Gap/serum bicarb and no electrolyte abnormalities. good urinary output - refused JESSICA CATHETER (4) Diabetes mellitus type 2 in obese: Plan: -Patient ordered Lantus and NovoLog. Continue this with close blood sugar monitoring (BS acceptable this am at 107) (5) HTN (hypertension): Plan: -Antihypertensive medications currently on hold given marginal hypotension upfront-- likely related to anemia. -BP currently stable at 125/71. HR 68. Reassess tomorrow with likely resumption of antihypertensive medications (at least the metoprolol. Patient chronically on losartan; however, this may need stopped all together with the renal impairment) (6) Paroxysmal A-fib: Plan: -Currently in a normal sinus rhythm with controlled ventricular rate -Amiodarone has been continued -Eliquis on hold given melanotic stools and hemoglobin of 5.6 upon presentation with presumed UGI bleed Plan: - continue IV hydration - continue abx therapy - plan for Upper and lower endoscopy on Thursday (Prep will need ordered for Thursday) Admission and Anticipated Discharge Date Admission Date: August 23, 2021 Subjective Patient reports feeling well. He has no new complaints Review of Systems Review of Systems: All systems reviewed & are unremarkable except as noted in HPI & below Physical Exam 2 Physical Exam: General: Resting comfortably in his hospital bed. Does not appear ill or toxic. NAD. HEENT: Head is AT/NC buccal mucosa is moist and pink Neck: No JVD. Negative hepatojugular reflex Cardiac: Appears RRR but distant Lungs: CTA without W/R/R Abdomen: Normoactive X4. Soft and nontender in all quadrants. Extremities: Area of erythema on the anterior santiago appears similar to yesterday. Neuro: A&O X4 cranial nerves II through XII are grossly intact no focal neuro deficits Skin: See above Psych: Appropriate affect pleasant and cooperative Results & Data Results & Data ([facility]) Vital Signs (Past 12 Hours) Vital Signs Temp Pulse Pulse Resp BP Pulse Ox 08/29/21 19:00 36.7 C 64 18 146/77 H 95 10/07/21 17:00 60 18 143/75 H 100 08/29/21 16:45 60 18 140/79 100 08/29/21 16:30 62 16 123/74 99 08/29/21 15:43 36.8 C 78 18 155/74 H 97 08/29/21 15:22 69 08/29/21 15:20 36.8 C 71 18 167/80 H 95 08/29/21 11:48 36.6 C 71 18 151/74 H 96 PG Care Time/CCT Total # of Minutes Spent Total Time Spent with Patient: Total time spent is greater than 50% in coordination of care (as documented) at patient's floor/unit and/or counseling patient: Coding Level of Care Code 56825 Subseq Hosp Care Lvl 2 Diagnoses Cellulitis L03.90 Blood loss anemia D50.0 TATE (acute kidney injury) N17.9 Diabetes mellitus type 2 in obese E11.69; E66.9 HTN (hypertension) I10 Hypertension type: essential hypertension Paroxysmal A-fib I48.0 Time Spent (min) 25 (1) HTN (hypertension) Hypertension type: essential hypertension Qualified Code(s): I10 - Essential (primary) hypertension
[2021-08-29] MEDS ORDERED: DAPTOmycin 325 MG in SYRINGE 0 ML IV SCH (21:00)
[2021-08-29] MEDS ORDERED: LAVAGE SOLUTION 4000ML PO ONE (22:00)
[2021-08-30] MEDS: PANTOprazole 40 MG in SYRINGE 0 ML IV SCH (08:34)
[2021-08-30] MEDS: INSULIN ASPART 100 UNITS/ML 3 ML PEN SC SCH ×3 (08:34→18:15)
[2021-08-30] MEDS: INSULIN GLARGINE SOLOSTAR 100 UNITS/ML 3 ML PEN SC SCH (08:37)
[2021-08-30 09:08] LABS: Albumin Level 2.7 gm/dl (3.4-5.0); BUN Creatinine Ratio 9.8 (10-20); Calcium 8.9 mg/dl (8.5-10.1); Creatinine Clr Calc Pharmacy 30.7 ml/min; Est GFR (African American) 27.1 ml/min; Est GFR (Non-African American) 23.4 ml/min; Phosphorus 3.2 mg/dl (2.5-4.9); Potassium 4.2 mmol/L (3.5-5.1)
--- NOTE | 2021-08-30 10:07 | Orthopedic Progress Note ---
Date of Service August 30, 2021 Assessment & Plan (1) Cellulitis: Plan: Day 2 s/p incision and drainage of Right lower extremtiy abscess Continue IV antibiotics and care per medicine service. Continue twice daily dressing changes, irrigation and repacking of wound. Orthopedically the patient is WBAT . Admission and Anticipated Discharge Date Admission Date: August 23, 2021 Subjective This 65-year-old male seen today for follow-up of a right lower extremity abscess/cellulitis. He states that he just had the dressing and packing changed about 5 AM. He states he is looking much better than it had been. He has questions about bathing when he returns to skilled nursing. Currently he denies any chest pain, shortness of breath, fever, chills, sweats, lethargy, no numbness or tingling in his right lower extremity, nausea, vomiting or diarrhea. Review of Systems Review of Systems: All systems reviewed & are unremarkable except as noted in Subjective Physical Exam Physical Exam: Right lower leg: Patient has a 10 cm x 6 cm area of Very faint erythema to the anterolateral aspect of the mid right lower leg with a central area that is filled with packing with no active drainage. The previous cellulitic area is no longer warm to touch. Area around the incisions is mildly TTP. Patient has full range of motion in his knee. Appropriate dexterity of his digits. He is able to dorsi and plantarflex actively and has no pain with resistance. He has full range of motion of his ankle. His calf soft supple nontender to palpation. There are no lesions the plantar surface of his foot. His peripheral pulses 2+. Capillary fill is less than 2 seconds. Results & Data ([facility]) Vital Signs (Past 12 Hours) Vital Signs Temp Pulse Pulse Resp BP Pulse Ox 08/30/21 08:04 65 08/30/21 07:51 37.0 C 67 20 151/78 H 95 08/30/21 03:00 37.2 C 74 18 111/65 96 08/29/21 23:36 36.9 C 73 18 151/78 H 96 Laboratory Results 08/30/21 08/30/21 08/30/21 Range/Units 09:17 08:20 07:45 WBC (4.8-10.8) K/uL RBC (4.7-6.1) M/uL Hgb (14.0-18.0) g/dL Hct (42-52) % MCV (80-100) fL MCH (25-34) pg MCHC (32-36) g/dL RDW Std Deviation (36.4-46.3) fL RDW Coeff of Sharad (11.5-14.5) % Plt Count (130-400) K/uL MPV (7.4-10.4) fL Sodium 140 (136-145) mmol/L Potassium 4.2 (3.5-5.1) mmol/L Chloride 108 H (98-107) mmol/L Carbon Dioxide 27 (21-32) mmol/L Anion Gap 5.0 (3-11) BUN 27 H (7-18) mg/dl Creatinine 2.76 H (0.6-1.4) mg/dl Est Cr Clr Drug Dosing 30.7 ml/min Est GFR ( Amer) 27.1 ml/min Est GFR (Non-Af Amer) 23.4 ml/min BUN/Creatinine Ratio 9.8 L (10-20) Glucose 95 (70-99) mg/dl POC Glucose 79 (70-99) mg/dl Calcium 8.9 (8.5-10.1) mg/dl Phosphorus 3.2 (2.5-4.9) mg/dl Albumin 2.7 L (3.4-5.0) gm/dl IgA Pending Tiss Transglutamin IgA Pending Celiac Disease Interp Pending 08/29/21 08/29/21 08/29/21 Range/Units 20:41 19:26 19:26 WBC 6.77 (4.8-10.8) K/uL RBC 3.24 L (4.7-6.1) M/uL Hgb 9.6 L (14.0-18.0) g/dL Hct 30.3 L (42-52) % MCV 93.5 (80-100) fL MCH 29.6 (25-34) pg MCHC 31.7 L (32-36) g/dL RDW Std Deviation 64.0 H (36.4-46.3) fL RDW Coeff of Sharad 18.5 H (11.5-14.5) % Plt Count 198 (130-400) K/uL MPV 8.8 (7.4-10.4) fL Sodium 140 (136-145) mmol/L Potassium 4.1 (3.5-5.1) mmol/L Chloride 110 H (98-107) mmol/L Carbon Dioxide 26 (21-32) mmol/L Anion Gap 4.0 (3-11) BUN 30 H (7-18) mg/dl Creatinine 2.75 H (0.6-1.4) mg/dl Est Cr Clr Drug Dosing 30.5 ml/min Est GFR ( Amer) 27.2 ml/min Est GFR (Non-Af Amer) 23.5 ml/min BUN/Creatinine Ratio 10.9 (10-20) Glucose 186 H (70-99) mg/dl POC Glucose 163 H (70-99) mg/dl Calcium 8.3 L (8.5-10.1) mg/dl Phosphorus (2.5-4.9) mg/dl Albumin (3.4-5.0) gm/dl IgA Tiss Transglutamin IgA Celiac Disease Interp 08/29/21 08/29/21 Range/Units 17:14 11:36 WBC (4.8-10.8) K/uL RBC (4.7-6.1) M/uL Hgb (14.0-18.0) g/dL Hct (42-52) % MCV (80-100) fL MCH (25-34) pg MCHC (32-36) g/dL RDW Std Deviation (36.4-46.3) fL RDW Coeff of Sharad (11.5-14.5) % Plt Count (130-400) K/uL MPV (7.4-10.4) fL Sodium (136-145) mmol/L Potassium (3.5-5.1) mmol/L Chloride (98-107) mmol/L Carbon Dioxide (21-32) mmol/L Anion Gap (3-11) BUN (7-18) mg/dl Creatinine (0.6-1.4) mg/dl Est Cr Clr Drug Dosing ml/min Est GFR ( Amer) ml/min Est GFR (Non-Af Amer) ml/min BUN/Creatinine Ratio (10-20) Glucose (70-99) mg/dl POC Glucose 82 105 H (70-99) mg/dl Calcium (8.5-10.1) mg/dl Phosphorus (2.5-4.9) mg/dl Albumin (3.4-5.0) gm/dl IgA Tiss Transglutamin IgA Celiac Disease Interp
--- NOTE | 2021-08-30 10:49 | Nephrology Progress Note ---
Date of Service August 30, 2021 Assessment & Plan (1) TATE (acute kidney injury): Plan: Non-oliguric. Electrolytes acceptable. Clinical presentation consistent with prerenal and hemodynamically mediated TATE with ATN and recent Bactrim. Creatinine now approaching baseline. No indication for dialysis. Urine microscopy acellular. Medications appropriate for kidney function. Continue to hold rosuvastatin and losartan. No additional recommendations from nephrology at this time. Outpatient follow up may be made at discharge. I will sign-off, please call with questions or concerns. (2) CKD stage 4 due to type 2 diabetes mellitus: Plan: Creatinine 2.5-2.7 mg/dL during prior admission. UA +protein. Consistent with DKD. (3) Blood loss anemia: Plan: Hgb goal >8 in setting of TATE. Epogen 4000 units and 200 mg IV iron provided 08/25. Additional 4000 units provided today. (4) Cellulitis: Plan: Management per primary team and ortho. Admission and Anticipated Discharge Date Admission Date: August 23, 2021 Subjective No acute events overnight. EGD/colonoscopy completed yesterday without complications. No fevers or chills. No abdominal pain. Review of Systems Review of Systems: All systems reviewed & are unremarkable except as noted in HPI & below Physical Exam Constitutional: well developed; no acute distress Eyes: no scleral abnormality and no corneal abnormality ENMT: Mouth: no oral mucosal abnormality and oral mucous membranes not dry Neck: normal visual inspection and trachea midline Respiratory: normal respiratory effort Auscultation: lungs clear to auscultation bilaterally Cardiovascular: Rate/Rhythm: regular rate Heart Sounds: normal S1 and normal S2 Extremities: no edema Musculoskeletal: Extremities: no cyanosis and no clubbing Skin: normal turgor, + induration and + subcutaneous nodules (sabaceous abscess on lower right extremity) Neurologic: Motor/Sensory: no tremor and no asterixis Psychiatric: Orientation: alert and oriented x 3 Results & Data ([facility]) Vital Signs (Past 12 Hours) Vital Signs Temp Pulse Pulse Resp BP Pulse Ox 08/30/21 08:04 65 08/30/21 07:51 37.0 C 67 20 151/78 H 95 08/30/21 03:00 37.2 C 74 18 111/65 96 08/29/21 23:36 36.9 C 73 18 151/78 H 96 Laboratory Results Laboratory Results - last 24 hr 08/29/21 08/29/21 08/29/21 11:36 17:14 19:26 WBC 6.77 RBC 3.24 L Hgb 9.6 L Hct 30.3 L MCV 93.5 MCH 29.6 MCHC 31.7 L RDW Std Deviation 64.0 H RDW Coeff of Sharad 18.5 H Plt Count 198 MPV 8.8 Sodium Potassium Chloride Carbon Dioxide Anion Gap BUN Creatinine Est Cr Clr Drug Dosing Est GFR ( Amer) Est GFR (Non-Af Amer) BUN/Creatinine Ratio Glucose POC Glucose 105 H 82 Calcium Phosphorus Albumin IgA Tiss Transglutamin IgA Celiac Disease Interp 08/29/21 08/29/21 08/30/21 19:26 20:41 07:45 WBC RBC Hgb Hct MCV MCH MCHC RDW Std Deviation RDW Coeff of Sharad Plt Count MPV Sodium 140 Potassium 4.1 Chloride 110 H Carbon Dioxide 26 Anion Gap 4.0 BUN 30 H Creatinine 2.75 H Est Cr Clr Drug Dosing 30.5 Est GFR ( Amer) 27.2 Est GFR (Non-Af Amer) 23.5 BUN/Creatinine Ratio 10.9 Glucose 186 H POC Glucose 163 H 79 Calcium 8.3 L Phosphorus Albumin IgA Tiss Transglutamin IgA Celiac Disease Interp 08/30/21 08/30/21 08:20 09:17 WBC RBC Hgb Hct MCV MCH MCHC RDW Std Deviation RDW Coeff of Sharad Plt Count MPV Sodium 140 Potassium 4.2 Chloride 108 H Carbon Dioxide 27 Anion Gap 5.0 BUN 27 H Creatinine 2.76 H Est Cr Clr Drug Dosing 30.7 Est GFR ( Amer) 27.1 Est GFR (Non-Af Amer) 23.4 BUN/Creatinine Ratio 9.8 L Glucose 95 POC Glucose Calcium 8.9 Phosphorus 3.2 Albumin 2.7 L IgA Pending Tiss Transglutamin IgA Pending Celiac Disease Interp Pending PG Care Time/CCT Total # of Minutes Spent Total Time Spent with Patient: Total time spent is greater than 50% in coordination of care (as documented) at patient's floor/unit and/or counseling patient: Coding Level of Care Code 20093 Subseq Hosp Care Lvl 3 Diagnoses TATE (acute kidney injury) N17.9 CKD stage 4 due to type 2 diabetes mellitus E11.22; N18.4 Blood loss anemia D50.0 Cellulitis L03.90
[2021-08-30] MEDS ORDERED: EPOETIN ALFA 4,000 UNIT/ML VIAL SQ SCH (11:00)
--- NOTE | 2021-09-01 07:24 | Discharge Summary ---
Date of Service August 30, 2021 Admission HPI Per Admitting Provider Lalit Crooks is a 65 year old male who presents from [facility] due to right lower extremity wound and outpatient labs with significant anemia (Hgb 5.7). The patient reports he has been having melena for the last 2 months. He reports generalized fatigue but no chest pain, shortness of breath or dizziness. He also has a wound just above his right ankle. He reports this started on Thursday and has been progressively getting worse. He denies any antibiotic use although he does have Bactrim listed on his medication list. Of note he was diagnosed with liver lesions on last admission. He is unable to tell me about any follow up regarding this. He also never had any follow up EGD or colonoscopy after he was diagnosed with acute blood loss anemia here. In the ER fecal occult is positive. Hemoglobin stable at 5.6. He was also noted to have TATE with creatinine 5.3 (baseline 2.5-2.7). He was referred to medicine for admission and ongoing management of anemia. Principal Diagnosis cellulitis Discharge Exam General: Resting comfortably in his hospital bed. Does not appear ill or toxic. NAD. HEENT: Head is AT/NC buccal mucosa is moist and pink Neck: No JVD. Negative hepatojugular reflex Cardiac: Appears RRR but distant Lungs: CTA without W/R/R Abdomen: Normoactive X4. Soft and nontender in all quadrants. Extremities: Area of erythema on the anterior santiago appears similar to yesterday. Neuro: A&O X4 cranial nerves II through XII are grossly intact no focal neuro deficits Skin: See above Psych: Appropriate affect pleasant and cooperative Discharge Data Allergies Allergy/AdvReac Type Severity Reaction Status Date / Time eggplant Allergy Verified 08/24/21 16:38 sodium chloride Allergy Unknown Verified 08/23/21 18:15 [From [place] Nasal] Consultations 08/23/21 18:22 ED Decision to Admit Stat 08/23/21 23:16 Consult Gastroenterology Routine Consult Nephrology Routine 08/26/21 14:08 Consult Orthopedic Surgery Routine Procedures Performed Operation Date: 08/26/21 17:00 <No data on this case meets the specified criteria> Operation Date: 08/29/21 16:30 Actual Procedures p EGD Biopsy Cytology - Wilfrido Vigil MD s Colonoscopy Hemostasis - Wilfrido Vigil MD Ordered Studies 08/24/21 09:38 CT tib/fib RT wo con Routine 08/25/21 08:34 MR lower leg RT wo con Routine Hospital Course (1) Cellulitis: - appears to clinically have a small abscess as well (over anterior santiago). I was able to squeeze this and facilitate passing of purulent fluid. - CT done showing no evidence of abscess, however, - On MRI: There is a 1 cm subcutaneous focal fluid collection within the mid right lower leg laterally as described above. This favors a small subcutaneous abscess - The area around this is still indurate. ? communicating abscess just lateral to where area was drained. - culture obtained upon admission from crack noted in heel but this does not appear to be clinically infected - Repeat culture obtained from anterior santiago wound with prelim growth of Staph species. Patient has h/o MRSA. Continue Dapto with final culture data to guide treatment - blood cultures showing NGTD ortho evaluated patient performed an I and D will discharge patient on PO doxycycline to complete course for an additional week. (2) Blood loss anemia: - suspect UGI bleed: melanotic stools on Eliquis and ASA (A.Fib), positive Hemoccult - ACT and ASA remain on hold - s/p transfusion 4 units packed cells total - Was marginally hypotensive. This has stabilized with improvement in H/H - Epogen and Venofer given by Nephro (which is also on board). Appreciate rec ommendations - I do not see that iron studies/retic count/erythropoietin level done but patient already received blood and results will be skewed. 1 dose venofer ordered - GI consulted for endoscopy--? Plan is to pursue Upper and lower endoscopy per GI. Initially plan was for Thursday but with persistent A/CKD-- this has been moved until Thursday as I an concerned that the prep will only exacerbate his acute renal impairment. - Continue PPI UPPER GI AND COLONOSCOPY negative. hemoglobin is stable. will recommend iron supplements once antibiotics are completed (3) TATE (acute kidney injury): - Acute on Chronic renal impairment - likely multifactorial - patient limited historian but Bactrim noted to be on medlist (reports believes to have been on this for long time from old wound on back but documentation states was started on Thursday) - WOULD AVOID BACTRIM given h/o CXR (baseline Cr. 2.5-2.7) - In addition, may have component of ATN d/t hypoperfusion from anemia/hypotension). Get urine lytes to differentiate FENa - No significant change in renal function compared to yesterday. - normosol IVF on board. Goal is for positive fluid balance (again, reason for holding of on c-scope for now) - monitor renal function closely - hold nephrotoxic meds (ARB) and renally adjust when appropriate - nephro consulted. appreciate recommendations - currently, patient with NORMAL anion Gap/serum bicarb and no electrolyte abnormalities. good urinary output - refused JESSICA CATHETER (4) Diabetes mellitus type 2 in obese: -Patient ordered Lantus and NovoLog. Continue this with close blood sugar monitoring (BS acceptable this am at 107) (5) HTN (hypertension): -Antihypertensive medications currently on hold given marginal hypotension upfront-- likely related to anemia. -BP currently stable at 125/71. HR 68. (6) Paroxysmal A-fib: -Currently in a normal sinus rhythm with controlled ventricular rate -Amiodarone has been continued -Eliquis on hold given melanotic stools and hemoglobin of 5.6 upon presentation with presumed UGI bleed - continue IV hydration - continue abx therapy - plan for Upper and lower endoscopy on Thursday (Prep will need ordered for Thursday) Total Time Total Time Spent Total Time Spent (In Minutes): 32 Discharge Plan Discharge Items [facility] Reason For Visit: HEMOGLOBIN 5.7, ABCESS ON R ANKLE Discharge Diagnosis: anemia/ abscess Activity: Resume your previous activity Non-emergency contact: Primary Care Provider Call non-emergency contact if: you have any medication questions Follow-up/Referrals: Efrain OVALLES [Primary Care Provider] - Diet: Carb Consistent or DM2 Addtl Attending Provider Instructions: Continue twice daily dressing changes, irrigation and repacking of wound. Please followup with Dr. Baker as an outpatient in 1 week to re-evaluate leg a bscess. Outpatient follow up may be made at discharge for Neprhology: Dr. Huddleston. May need to followup BMP in 1-2 weeks Resume Eliquis in 7 days. Once antibiotics have been completed. Then ok to place on Iron supplements. Pending Studies at Discharge: No Stand-Alone Forms: My wavecatch, Smoking Cessation Skilled Items Patient informed of condition?: No Discharge Level of Care: Skilled Communicable Disease: Yes Discharge Prognosis: Stable Lines: None Urinary Catheter: No Medications and DC Order Prescriptions: New doxycycline hyclate 100 mg tablet 100 mg PO BID 7 Days Qty: 14 RF: 0 Continued Novolin 70/30 U-100 Insulin 100 unit/mL (70-30) Suspension 45 unit SUBCUT QAM RF: 0 Novolin 70/30 U-100 Insulin 100 unit/mL (70-30) Suspension 40 unit SUBCUT QPM RF: 0 metoprolol tartrate 25 mg Tablet 25 mg PO BID RF: 0 aspirin [Aspirin Low Dose] 81 mg Tablet,Delayed Release (Dr/Ec) 81 mg PO DAILY RF: 0 insulin regular human 100 unit/mL Cartridge 1 sliding scale dose SUBCUT USEASDIRECTD RF: 0 Discontinued rosuvastatin 40 mg Tablet 40 mg PO DAILY RF: 0 amiodarone 200 mg Tablet 200 mg PO BID RF: 0 losartan 25 mg Tablet 25 mg PO DAILY RF: 0 sulfamethoxazole-trimethoprim [Bactrim DS] 800-160 mg Tablet 1 tab PO BID RF: 0 apixaban 5 mg Tablet 5 mg PO BID RF: 0 Discharge Orders: Discharge Order (Routine); Ordered 08/30/21 Ordered By: Reji Laurent Admission Data Admit Date/Time: 08/23/21 19:11 Attending Provider: Reji Laurent Admit Provider: Deshaun Wesley Primary Care Provider: Efrain OVALLES Other Providers: Aby Sanchez ; Edwin Huddleston ; Remy Maldonado ; Kelechi Baker Other Interventions: Discharge Summary Assessment (RN) Last Done: 08/30/21 17:21 Coding Level of Care Code D/C DAY MANAGEMENT >30 MINS Diagnoses Cellulitis L03.90 Blood loss anemia D50.0 TATE (acute kidney injury) N17.9 Diabetes mellitus type 2 in obese E11.69; E66.9 HTN (hypertension) I10 Hypertension type: essential hypertension Paroxysmal A-fib I48.0
[2021-09-02 20:32] LABS: IgA Serum 344 mg/dL (70-320); Tis Trans IgA <1.0 U/mL
== END 2021-08-30 19:10 | DRG 377 ==
LOC: ED 15:27 → EDINP 19:11 → SUATTDRO 19:11 → 2W 21:59